=== PATIENT | male | born 1945 | race Caucasian/White ===

== ENCOUNTER 2016-12-13 14:56 | Emergency (ER) | payer MEDICARE ==
[~2016-12-13] VITALS: Ht 180.3 cm; Wt 78.2 kg
[~2016-12-13 14:56] MED LIST: ALBU8.5H2 INHALATION; BUPR100T8 PO; FLUO20CA25 PO; HYDR-3090 PO; IPRA3AMP NEB; LAMO100T2 PO; PANT40TA3 PO; PRED-508 PO; QUET200T PO; TRAZ-115 PO
[2016-12-13 15:30] VITALS: BP 143/79; PULSE 95; RESP 22; O2SAT 95
--- NOTE | 2016-12-13 18:33 | ED.REPORT ---
HPI-Hand Prob/Inj Date of Service Dec 13, 2016 ED Provider: Raymond Pineda PA-C Carloz is a 71-year-old male with a history of stage IV lung cancer and sarcoidosis who presents with chief complaint of a dog bite on his left hand. He states he was walking his own dog last night when they were approached by a strange dog that bit his hand. He reports being up-to-date on his tetanus shot as well as being given rabies vaccination 9 years ago for previous dog bite. Reports his left hand is painful at a level of 7/10, aggravated by flexing or extending his fingers. Nursing Notes Stated Complaint: L HAND DOG BITE Chief Complaint: General Complaint Nursing Notes Reviewed: Yes Allergies: Coded Allergies: No Known Drug Allergies (Verified Allergy, Unknown, 06/06/14) Scheduled Albuterol HFA (Proair HFA) 8.5 Gm Hfa.aer.ad 2 PUFFS INHALATION Q4H Amoxicillin/Clav K 875-125 mg (Amoxicillin/Clav K 875-125 mg) 875 Mg Tab 1 TABLET PO BID Bupropion ER (Bupropion ER) 100 Mg Tablet.er 100 MG PO DAILY Fluoxetine (Fluoxetine) 20 Mg Capsule 20 MG PO DAILY Ipratropium/Albuterol Sulfate (Iprat-Albut 0.5-3(2.5) mg/3 mL Inhalant Soln) 3 Ml Ampul.neb 3 ML NEB Q4H Lamotrigine (Lamotrigine) 100 Mg Tablet 150 MG PO DAILY Pantoprazole DR (Pantoprazole DR) 40 Mg Tablet.dr 40 MG PO DAILYAC Prednisone (Deltasone) 20 Mg Tablet 10 MG PO BID Prednisone taper: 40mg for 5 days 30mg for 5 days 20mg for 5 days 10mg for 5 days Quetiapine Fumarate (Seroquel) 200 Mg Tablet 200 MG PO HS Trazodone (Trazodone) 50 Mg Tablet 50 MG PO HS Scheduled PRN Hydrocodone-Acetaminophen 5-300 mg (Hydrocodone-Acetaminophen 5-300 mg) 1 Each Tablet 1 TABLET PO Q4H PRN PRN For Pain General Time Seen by Provider: 18:11 Chief Complaint Hand injury left Past Medical History Past Medical History Metastatic lung cancer COPD History of sarcoidosis Chronic glucocorticoid therapy Osteoporosis Dyslipidemia Family History noncontributory Smoking History Current Every Day Smoker Social History Other Social History: Good social support, Local resident Ambulatory Status Independent Physical Exam Initial Vital Signs Vital Signs (First) Date Time Temp Pulse Resp B/P Pulse Ox O2 Delivery O2 Flow Rate FiO2 12/13/16 15:30 35.9 95 22 143/79 95 12/13/16 19:51 Room Air Re-Eval/Medical Decision Med Decision/Clinical Course I discussed the case with Dr. juarez 71-year-old male currently on chemotherapy for stage IV lung cancer presents almost 24 hours have been bitten by an unknown dog on his left hand. These reports pain with flexion and extension of his fingers. He states that he Is up -to-date but is unsure of when he had it. He reports a course of rabies vaccination 9 years ago after a previous bite injury. We cleaned and examine the wound. There does not appear to be any damage to the tendon sheath, no indication of fracture. The patient has full strength with flexion and extension of the CP PIP and DIP joints. Sensation and circulation are intact distally. There is no indication of infection. Wound was divided minimally and dressed with antibiotic ointment. Provide initial dose of Augmentin and provided a prescription for 10 days. Instructed patient to contact the [facility] regarding further treatment for rabies. Patient understands the plan and is amenable. About return precautions. Discharge & Departure Primary Impression: Dog bite Disposition: Home Discharge Condition All VS Reviewed: Yes Condition: Stable Additional Instructions: Evaluation in emergency Department following a dog bite. History and physical is reassuring that there is unlikely damage to tendons or bones of your hand. It is too late to suture the wound on your hand. We cleaned and dressed it. I will give a prescription for antibiotics to be taken for the next 10 days. Be aware this medication is likely to give you diarrhea. Change the dressing daily wash with soap and water and then reapply antibiotic ointment and dressing. Be vigilant for signs of infection including increasing pain, redness , swelling or the appearance of pus. Please follow up with your primary care provider in the next few days to be sure this is progressing as expected. The pain is best treated with 400 mg of ibuprofen (Advil, Motrin) every 6 hours , or 1000 mg of acetaminophen (Tylenol) every 6 hours. These drugs can be taken at the same time for more severe pain. Please contact the [facility] at , to determine if you will require treatment for rabies. Return to emergency department for signs of infection including fever, increasing redness, swelling, pain, the appearance of pus. Referrals: Diane Aldana MD (PCP) EDSupervising Provider for APC: Eh Juarez DO copies to: Diane Aldana MD, Seth PA-C Dec 13, 2016 18:33
[2016-12-13] MEDS ORDERED: Ketorolac 30 mg/mL 2 mL Inj IM ONE (18:40)
[2016-12-13] MEDS ORDERED: AGM875T PO (19:16)
[2016-12-13] MEDS ORDERED: Amoxicillin-Clav 875-125 mg Tablet PO ONE (19:20)
[2016-12-13] MEDS ORDERED: TdaP Vaccine 0.5 mL Inj IM ONE (19:40)
[2016-12-13 19:51] VITALS: PULSE 89; RESP 16; O2SAT 92
[2017-04-10] MEDS ORDERED: OXYC-466 PO (17:22)
[2017-04-11] MEDS ORDERED: LORA0.5T PO (07:01)
[2017-04-11] MEDS ORDERED: APIX5TAB PO (07:01)
[2017-04-11] MEDS ORDERED: METO-272 PO (08:44)
== END 2016-12-13 19:53 | disposition home or self-care (01) ==
LOC: SED 14:56
DX: S61.452A Open bite of left hand, initial encounter (principal); W54.0XXA Bitten by dog, initial encounter; Y93.01 Activity, walking, marching and hiking; Y99.8 Other external cause status; F17.200 Nicotine dependence, unspecified, uncomplicated; J44.9 Chronic obstructive pulmonary disease, unspecified; C34.90 Malignant neoplasm of unspecified part of unspecified bronchus or lung; Z23 Encounter for immunization; Z87.09 Personal history of other diseases of the respiratory system; Z79.51 Long term (current) use of inhaled steroids; Z79.52 Long term (current) use of systemic steroids
CPT/HCPCS: 90471; 90715; 96372; 99284; J1885

== ENCOUNTER 2017-02-28 10:40 | Inpatient (IN) | payer MEDICARE ==
[2017-02-28] VITALS (11 sets, daily range): BP systolic 83–119; BP diastolic 56–75; PULSE 105–127; RESP 11–26; O2SAT 93–99
[~2017-02-28] VITALS: Ht 172.7 cm; Wt 83.4 kg
[~2017-02-28 10:40] MED LIST changes: -HYDR-3090 PO
--- NOTE | 2017-02-28 11:00 | ED.REPORT ---
HPI-Dyspnea / Wheezing Date of Service February 28, 2017 ED Provider: Elizabeth Lara MD 71-year-old man with metastatic melanoma seen in oncology clinic and sent to the emergency department with concerns for developing pneumonia in this gentleman with sarcoid chronic steroid dependence metastatic lesions to his lungs COPD who uses oxygen and BiPAP regularly at home. Complaining of increased difficulty breathing, left-sided low chest pain after some trauma to the lower ribs no abdominal pain does not describe fevers does describe chills. No upper left-sided chest pain or cardiac chest pain. Regular bowel movements no difficulties with urination. Nursing Notes Stated Complaint: POSSIBLE PNEUMONIA SENT BY Chief Complaint: Respiratory Complaints Nursing Notes Reviewed: Yes Allergies: Coded Allergies: No Known Drug Allergies (Verified Allergy, Unknown, 06/06/14) Scheduled Bupropion ER (Bupropion ER) 100 Mg Tablet.er 100 MG PO DAILY Fluoxetine (Fluoxetine) 20 Mg Capsule 20 MG PO DAILY Ipratropium/Albuterol Sulfate (Iprat-Albut 0.5-3(2.5) mg/3 mL Inhalant Soln) 3 Ml Ampul.neb 3 ML IH TID Lamotrigine (Lamotrigine) 100 Mg Tablet 100 MG PO DAILY Pantoprazole DR (Pantoprazole DR) 40 Mg Tablet.dr 40 MG PO DAILYAC Pravastatin (Pravastatin) 40 Mg Tablet 40 MG PO QAM Prednisone (PredniSONE) 5 Mg Tab 10 MG PO BID Quetiapine Fumarate (Seroquel) 200 Mg Tablet 200 MG PO HS Trazodone (Trazodone) 50 Mg Tablet 50 MG PO HS General Time Seen by MD: 11:00 Chief Complaint Shortness of breath, Other (chest pain) Hx Obtained From: Patient Arrived By: Walk-in Sudden in Onset?: No Onset Occurred: 4 days ago Severity: Current: Pain level 9 out of 10 Past Medical History Past Medical History Metastatic melanoma to the lung COPD History of sarcoidosis Chronic glucocorticoid therapy Osteoporosis Dyslipidemia Past Surgical History lung biospy, hemmorrhoid times 2 Family History noncontributory Smoking History Current Every Day Smoker (2 cig a day for 60 years) Social History etoh nightly Other Social History: Local resident Occupation lives by self, 1 story house friends will help him 02/27/2017 currently significant social issues with his children Ambulatory Status Independent Review of Systems Constitutional: Reports: Chills, Denies: Fever Respiratory: Reports: Shortness of breath Cardiovascular: Reports: Chest pain Complete sys rev & neg: except as marked. GI: Denies: Abdominal pain, Constipation, Diarrhea, Vomiting Male: Denies Dysuria, Denies Hematuria Physical Exam Initial Vital Signs Vital Signs (First) Date Time Temp Pulse Resp B/P Pulse Ox O2 Delivery O2 Flow Rate FiO2 02/28/17 10:47 36.2 127 24 116/75 93 Room Air 02/28/17 11:52 2 Initial VS: Reviewed Head / Eyes: Atraumatic, Normocephalic ENT: Mucous membranes moist (very yohan complexion), Conjunctiva normal Abdomen / GI: Non-tender, No guarding, No rebound (moderately distended obese belly good bowel tones. Nontender) Back: No CVA tenderness Lymphatic: No lymphadenopathy Extremities: Vascular intact (right hand with thenar and intraosseous muscle wasting presumed some type of previous ulnar nerve injury) Skin: Warm (flushed well perfused not diaphoretic) Neurologic: Alert, Oriented Psychiatric: Mood/affect normal, Behavior normal Some rhonchi in the left base very tender over manipulation along the axillary line left-sided ribs 10 and 11, 12 with 2 small areas of well-healed bruising in the same area of concern. Tachycardic, regular. No significant murmurs. No jugular venous distention No lower extremity edema good capillary refill but no palpable distal pulses. Interpretation & Diagnostics Lab Results Interpretation Result Diagram: 02/28/17 1120 02/28/17 1120 Test 02/28/17 11:20 White Blood Count 8.9th/mm3 (3.8-10.1) Red Blood Count 3.51mil/mm3 (4.40-5.80) Hemoglobin 11.4g/dL (13.8-17.2) Hematocrit 37.0% (41.0-50.0) Mean Corpuscular Volume 105.4fL (81-100) Mean Corpuscular Hemoglobin 32.5pg (27.0-35.0) Mean Corpuscular Hemoglobin Concent 30.8% (32.0-37.0) Red Cell Distribution Width 15.6% (12.3-15.4) Platelet Count 302bil/L (150-400) Neutrophils (%) (Auto) 83.9% (40-74) Lymphocytes (%) (Auto) 3.6% (14-46) Monocytes (%) (Auto) 9.1% (4-12) Eosinophils (%) (Auto) 0.2% (0-5) Basophils (%) (Auto) 0.7% (0-3) Activated Partial Thromboplast Time 24.4sec (22.8-33.0) Sodium Level 141mEq/L (134-144) Potassium Level 3.9mEq/L (3.5-5.2) Chloride Level 99mEq/L (97-108) Carbon Dioxide Level 30mmol/L (18-29) Blood Urea Nitrogen 13mg/dL (8-27) Creatinine 0.70mg/dL (0.76-1.27) Estimat Glomerular Filtration Rate 117mL/min (>59) Glucose Level 124mg/dL (60-99) Lactic Acid Level 1.6mmol/L (0.4-2.0) Calcium Level 9.3mg/dL (8.5-10.1) Total Bilirubin 0.5mg/dL (0.0-1.2) Aspartate Amino Transf (AST/SGOT) 29U/L (0-50) Alanine Aminotransferase (ALT/SGPT) 34U/L (0-44) Alkaline Phosphatase 113U/L (25-160) Pro-B-Type Natriuretic Peptide 1271pg/mL (0-376) Total Protein 5.7g/dL (6.4-8.4) Albumin 3.7g/dL (3.4-5.0) Procalcitonin 0.10ng/mL (0.00-0.08) Lab Results Interpretation: EK:39 Rate 129 Atrial flutter. NEW compared to all prior EKGs. RBBB, present on prior studies. ST depression mykel/laterally - likley rate related but a chagne from prior EKGs. CT chest, angio: IMPRESSION: 1. No pulmonary emboli. 2. Small to moderate-sized left-sided pleural effusion has increased in the interim. Consolidation at the left lung base may be related to scarring or atelectasis. However, please correlate clinically to exclude the possibility of pneumonia. Dictated by: Rod Sheriff M.D. on 02/28/2017 at 11:22 No indication of rib fractures at site of tenderness Re-Eval/Medical Decision Med Decision/Clinical Course Care assumed from Roseline Arce by Dr Lara.71-year-old chronically ill gentleman with metastatic melanoma now with left-sided lower chest pain/rib pain. No evidence of rib fractures on CT scan however pleural effusion in that area and likely developing pneumonia could certainly explain the pain he is experiencing. Pulmonary embolus is ruled out. Atrial flutter with rapid ventricular response, elevated troponin. ST depression anterior laterally in the setting of right bundle branch block. Likely rate related troponin leak however non-STEMI is not ruled out at this time. In the emergency room he will be treated for presumed community-acquired pneumonia, exacerbation of his COPD, likely increase oxygen demands have caused his atrial flutter which is now causing rate related troponin leak and all are contributing to the lower left chest pain he is experiencing. He does want to be DO NOT RESUSCITATE and would like treatment up to that. He is given IV Cardizem for rate control started on a Cardizem drip. Second line is started. No evidence of acute sepsis at time of admission to the hospital. Source of Hx: Old records Re-Evaluation/Progress : Time of Eval: 15:26 Re-Evaluation/Progress Note: Pt has been admitted but is currently in the ER. On 15mg Dilt gtt, HR is down to 110, BP also down to 80's systolic. Will give fluid bolus, drop dilt rate to 10mg and IV digoxin for rate control with less hypotensive effects Consultation : Referral / Consult Name: Tristan Spangler MD Consulted With: Hospitalist Call Returned at: 13:34 Electrical Lineworker: Will see patient, Agrees with eval, Agrees with plan, Accepts admit Counseled Regarding: Diagnosis, Lab results, Need for admission Discharge & Departure Impression: Primary Impression: Atrial flutter with rapid ventricular response Additional Impressions: Elevated troponin Left lower lobe pneumonia Pleural effusion on left Metastatic melanoma Acute exacerbation of chronic obstructive pulmonary disease (COPD) Disposition: ADMITTED TO HOSPITAL Discharge Condition All VS Reviewed: Yes Condition: Stable Referrals: Diane Aldana MD (PCP) Crit Care Except Billable Proc Time Spent: 30-74 minutes Services Performed: Patient management by me, Time spent at bedside, Reviewing test results, Reviewing imaging, Discussing patient care, Documentation in record, Time with fam/surrogate Scribe Attestation Portions of this note were transcribed by Marium Lara. I, Dr. Lara personally performed the history, physical exam and medical decision-making; I reviewed and confirmed the accuracy of the information in the transcribed note. Signed by: Radha Renteria,02/28/2017 at 1345. copies to: Nilton Arroyo MD; Diane Aldana MD, Sue ARNP February 28, 2017 11:00 Elizabeth Lara MD February 28, 2017 12:57 Marium Lara February 28, 2017 13:35
[2017-02-28] MEDS ORDERED: HYDROmorphone 1 mg/mL Inj IVPUSH ONE (11:10)
[2017-02-28] MEDS ORDERED: 0.9% Sodium Chloride 1,000 ML IV ONE ×2 (11:10→15:30)
[2017-02-28] MEDS ORDERED: Albuterol-Ipratropium 3 mL Inhalation Solution NEB ONE (11:20)
[2017-02-28 11:37] LABS: EOSINOPHILS % (AUTO) 0.2 % (0-5); Mean Corpuscular Hemoglobin 32.5 pg (27.0-35.0); Mean Corpuscular Volume 105.4 fL (81-100)
[2017-02-28 11:42] LABS: BASOPHILS % (AUTO) 0.7 % (0-3); MONOCYTES % (AUTO) 9.1 % (4-12); NEUTROPHILS % (AUTO) 83.9 % (40-74); Platelet Count 302 bil/L (150-400)
[2017-02-28 11:55] LABS: TROPONIN T 0.029 ug/L (0.0-0.011)
[2017-02-28] MEDS ORDERED: Diltiazem 5 mg/mL 5 mL Inj IVPUSH ONE ×2 (12:05→12:45)
--- NOTE | 2017-02-28 12:31 | DRSVH ---
PROCEDURE: CT ANGIO CHEST PULMONARY EMBOLISM ([id number]) INDICATIONS: sob weak TECHNIQUE: After the administration of intravenous contrast, 2 mm thick sections acquired from the pulmonary api boyd to the posterior costophrenic angles. 3-dimensional maximum intensity projection (MIP) coronal a nd sagittal reformats were then acquired through the thorax. For radiation dose reduction, the follo wing was used: automated exposure control, adjustment of mA and/or kV according to patient size. COMPARISON: [facility], CT, CT CHEST ABD PELVIS W CON, 01/10/2017, 11:02. FINDINGS: Image quality: Excellent. Pulmonary arteries: Pulmonary arteries are normal in size, and demonstrate no intraluminal filling d efects to suggest central pulmonary embolism. Lungs and pleura: There is a small to moderate-sized left-sided pleural effusion with left basilar co nsolidation demonstrating decreased enhancement. Patchy geographically distributed areas of groundgl ass attenuation are evident throughout the lungs, which may be related to suboptimal inspiration. Mi ld scarring within the lung bases may be present. Mediastinum: Heart size is normal, without pericardial effusion. Coronary and aortic atherosclerosi s is present. No mediastinal or hilar adenopathy. Thoracic aorta is normal in caliber and enhancemen t. Esophagus is normal in caliber, without hiatal hernia. Bones and chest wall: No suspicious bony lesions. Ribs and thoracic spine appear intact throughout. Multiple healing/healed bilateral rib fractures are evident. There is a prominent compression defo rmity involving the T5 vertebral body, unchanged. An old fracture of the right glenoid and probably the humerus is noted with residual deformity. No acute injuries are evident. Thyroid gland is not e nlarged. No axillary or supraclavicular adenopathy. Abdomen: Visualized upper abdominal solid organs appear normal in the early arterial phase of enhanc ement. IMPRESSION: 1. No pulmonary emboli. 2. Small to moderate-sized left-sided pleural effusion has increased in the interim. Consolidation at the left lung base may be related to scarring or atelectasis. However, please correlate clinicall y to exclude the possibility of pneumonia. Dictated by: Rod Sheriff M.D. on 02/28/2017 at 11:22 Approved by: Rod Sheriff M.D. on 02/28/2017 at 11:30
[2017-02-28] MEDS ORDERED: cefTRIAXone Inj 2,000 MG in Dextrose 5% Minibag Plus 50 ML IV ONE (12:45)
[2017-02-28] MEDS: Diltiazem Inj 125 MG in Dextrose 5% 100 ML IV SCH ×3 (13:13→14:07)
[2017-02-28] MEDS ORDERED: IPRA3AMP IH (13:57)
[2017-02-28] MEDS ORDERED: PRD5T PO (14:01)
[2017-02-28] MEDS ORDERED: PRAV40TA PO (14:02)
[2017-02-28] MEDS ORDERED: Ondansetron 2 mg/mL 2 mL Inj IVPUSH PRN (14:50)
[2017-02-28] MEDS ORDERED: Alum-Mag Hydrox-Simeth 30 mL Suspension PO PRN (14:50)
[2017-02-28] MEDS ORDERED: Polyethylene Glycol (PEG) 17 Gm Powder PO PRN (14:50)
--- NOTE | 2017-02-28 15:00 | NUR ---
Arrival to 2020 Pt arrived to floor with his HR at 120s, pt was placed on monitor and 2LNC. Pt is alert and orient, pt is very weak, c/o of back pain. Pt placed on heparin gtt, amiodarone gtt, NS @100
[2017-02-28] MEDS ORDERED: Amiodarone 150 mg/100 mL D5W 150 MG in IV Premix 1 EACH IV ONE (15:10)
[2017-02-28] MEDS ORDERED: Heparin 5,000 Unit/mL Inj IVPUSH PRN (15:10)
[2017-02-28] MEDS ORDERED: Heparin 5,000 Unit/mL Inj IVPUSH ONE (15:10)
[2017-02-28] MEDS ORDERED: Digoxin 0.25 mg/mL 2 mL Inj IV ONE (15:30)
[2017-02-28] MEDS ORDERED: Heparin 5,000 Unit/mL Inj SUBQ SCH (16:30)
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
[2017-02-28] MEDS ORDERED: IV Premix 1 EACH IV ONE ×2 (16:55→23:49)
[2017-02-28] MEDS ORDERED: Amiodarone 360 mg/200 mL D5W Premix IV ONE ×2 (16:55→23:49)
[2017-02-28] MEDS: Amiodarone 360 mg/200 mL D5W 360 MG, Filter, Taxol 14256-28 1 EACH in IV Premix 1 EACH IV SCH ×2 (17:31→23:58)
[2017-02-28] MEDS: Heparin 25K Unit/500mL 0.45 NS 25,000 UNIT in IV Premix 1 EACH IV SCH (17:33)
[2017-02-28] MEDS: HYDROcodone-APAP 5-325 mg Tablet PO PRN (20:17)
[2017-02-28] MEDS: predniSONE 5 mg Tablet PO SCH (21:56)
[2017-02-28] MEDS: Ipratropium 0.02% 0.5 mg/2.5 mL Inhalation Solution NEB SCH (22:11)
[2017-03-01] VITALS (11 sets, daily range): BP systolic 95–127; BP diastolic 55–84; PULSE 98–118; RESP 12–23; O2SAT 92–99
[2017-03-01] MEDS: HYDROcodone-APAP 5-325 mg Tablet PO PRN ×3 (03:15→19:40)
--- NOTE | 2017-03-01 06:06 | NUR ---
Pain/HR Pt with intermittent kidney pain at 8-9/10, exacerbated with any kind of movement, Vicodin given x2, effective, pt able to sleep on and off. Pt on Amiodarone gtt, HR mostly sustained in 110's.
[2017-03-01 08:19] LABS: BASOPHILS % (AUTO) 2.2 % (0-3); EOSINOPHILS % (AUTO) 0.6 % (0-5); MONOCYTES % (AUTO) 11.4 % (4-12); Mean Corpuscular Hemoglobin 32.8 pg (27.0-35.0); Mean Corpuscular Volume 108.8 fL (81-100); Platelet Count 290 bil/L (150-400)
[2017-03-01] MEDS: Ipratropium 0.02% 0.5 mg/2.5 mL Inhalation Solution NEB SCH ×3 (08:30→20:30)
[2017-03-01] MEDS ORDERED: Amiodarone 360 mg/200 mL D5W Premix IV ONE (09:17)
[2017-03-01] MEDS ORDERED: IV Premix 1 EACH IV ONE (09:17)
[2017-03-01] MEDS: Pantoprazole 40 mg ER24 Tablet PO SCH (09:31)
[2017-03-01] MEDS: Albuterol-Ipratropium 3 mL Inhalation Solution NEB SCH ×3 (09:36→20:42)
[2017-03-01] MEDS: predniSONE 5 mg Tablet PO SCH ×2 (09:40→21:07)
[2017-03-01] MEDS: buPROPion SR 100 mg ER12 Tablet PO SCH (10:51)
[2017-03-01] MEDS: lamoTRIgine 100 mg Tablet PO SCH (10:51)
--- NOTE | 2017-03-01 15:23 | ABG ---
DateTimeAnalyzed 15:16:36 -_ pH ____7.335 - pCO2 ___59.7__ -mmHg pO2 ___82.5__ -mmHg HCO3- ___31.8__ -mmol/L ABE ____5.3__ -mmol/L tHb ___11.2__ -g/dL O2Hb ___95.5__ -% COHb ____2.1__ -% MetHb ____0.0__ -% sO2 ___97.5__ -% FIO2 ___28.0__ -% Drawn By KBB - Date/Time Notified____ 15:23:00 -_ Oxygen Device 1 __CANNULA - Notified By kbb - Notified Whom Yanchuk, Victororiya DO - Age 64 -years B 759 -mmHg K+ ____4.4__ -mmol/L tO2 ___15.1__ -Vol% Tristan test _Positive -
--- NOTE | 2017-03-01 16:03 | NUR ---
Social Work Note: Attempted Initial Assessment Data& Assessment: EMR reviewed. SW received order from MD regarding concerns about statements pt had made to MD about his relationship with his son and safety at home. SW attempted to meet with pt at bedside to complete initial assessment and address these concerns. Pt was very sleepy and was not able to engage in meaningful conversation. Pt requested SW to follow up at a later time. Pt continued to rest. SW to attempt initial assessment tomorrow, 03/01/2017. Carloz Mckeon is a 71 year old male admitted on 02/28/2017 for A FLutter with RVRR and elevated troponin. Pt has Medicare and AARP insurance coverage. Pt sees Diane Aldana MD for primary care. Pt lives in [place]. Pt has not ambulated outside of bed during this hospital admission so far. SW to follow up with pt regarding baseline mobility and needs. Plan: SW to attempt initial assessment again tomorrow, 03/01/2017.SW to follow up with pt regarding baseline mobility and needs. JACI Sheffield
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
[2017-03-01] MEDS: Heparin 25K Unit/500mL 0.45 NS 25,000 UNIT in IV Premix 1 EACH IV SCH (19:21)
--- NOTE | 2017-03-01 19:37 | NUR ---
Oxygenation / Pain: SpO2: mid 90's at rest on 2L NC. Reports SOB and desaturates to low 80's with exertion. Reported 10/10 abdominal pain that radiated to his mid back. Vicodin X2 tabs given and patient reported 10/10 pain with movement at reassessment, but states that is is tolerable at rest.
--- NOTE | 2017-03-01 20:31 | CONS ---
[address] [address] CONSULTATION REPORT PATIENT: SONAM HIRSCH : 1945 MR#: [id number] ADMIT: 02/28/2017 JOB ID: [id number] CARDIOLOGY CONSULTATION: DATE OF SERVICE: 03/01/2017 CHIEF COMPLAINT: Shortness of breath. HISTORY OF PRESENT ILLNESS: The patient is a very complex and unfortunate, 71-year-old man with history of lifelong sarcoid; on corticosteroids, and melanoma treated with radiation therapy with metastatic disease. Cardiology is consulted specifically to assist with management of atrial flutter. In hindsight, he has been short of breath for two weeks prior to admission. He is not aware of palpitations. He has been coughing and the cough was productive of white sputum, and Cardiology is consulted to assist with management of atrial flutter. PAST MEDICAL HISTORY: 1. Metastatic melanoma with lesions in his right renal hilum, neck and left lower lobe of the lung. 2. COPD, on 1.5 L nasal cannula at home. 3. Sarcoidosis, on chronic corticosteroid therapy. 4. Hyperlipidemia. 5. Osteoporosis. 6. He has chronic L1 and T12 compression fractures noted on CT scan from January 10, 2017. He also has noted healed bilateral rib fractures and history of dislocated shoulder with presumed intra-articular loose bodies. FAMILY HISTORY: Father with esophageal cancer and a sister with breast cancer. SOCIAL HISTORY: He unfortunately is still smoking. He smokes two cigarettes a day. REVIEW OF SYSTEMS: Significant for shortness of breath and pain in his back that wraps around the front and exacerbated by movement. He also reports abdominal tenderness to palpation on the left side, but no constipation and no nausea. Otherwise, 10 point review of systems is negative. ALLERGIES: No known drug allergies. CURRENT MEDICATIONS: In the hospital: 1. Heparin drip per ACS protocol. 2. Amiodarone drip. 3. Prednisone 10 mg twice a day. 4. Wellbutrin 100 mg daily. 5. Lamictal 100 mg daily. 6. Lipitor 10 mg daily. 7. Prozac 20 mg daily. 8. Protonix 40 mg daily. 9. Seroquel 200 mg every evening. 10. Nicotine patch. 11. Oral bowel regimen. PHYSICAL EXAMINATION: Temperature 36.8, blood pressure 99/56 up to 127/75, pulse 98, up to 118 beats per minute. He is satting 92% to 99% on 2-6 L nasal cannula. Obese man with cushingoid facies. Tongue shows very dry mucosa. Mallampati score is 2. Heart: Normal S1, S2. No murmurs. Lungs: Clear to auscultation anteriorly. Abdomen is hard, tympanitic and distended with rare but present bowel sounds. Extremities show no edema. LABORATORY DATA: Reviewed. Hematocrit is 37, MCV is 109 . Platelet count is normal with a left shift. Creatinine 0.5. Potassium 4.8. AST 63, ALT 51. Troponin T minimally elevated on admission 0.012. There is no recent TSH or free T4 available for review. DIAGNOSTIC DATA: EKG shows flutter with rapid ventricular response. Cycle length is 240 msec. There is no recent echocardiogram available for review. Last available echocardiogram was performed in 2008. I personally reviewed the study and it is reassuring. At that time he had no significant valvular abnormalities and he had preserved LV systolic function. Most recent CT scan was performed February 28, 2017. It demonstrated small left-sided pleural effusion, heavy calcification of his coronary vasculature; in particular distal left main, proximal LAD and proximal circumflex. On personal review, this patient had significant lymphadenopathy around the area of his esophagus. On personal review of the CT scan performed February 28, there is a 2.5 x 1.6 cm nodule right next to right pulmonary artery. The radiologist did not comment on it, but I can see it when I look at it and I will request clarification in addendum to the effect. It could easily be related to his underlying sarcoidosis. ASSESSMENT AND PLAN: In summary, this is a very complex situation. This is a 71-year-old man with symptomatic atrial flutter and poor prognosis due to his metastatic malignant melanoma. Under normal circumstances, would recommend anticoagulation, transesophageal echocardiogram, and cardioversion. So far, he seems to be tolerating heparin drip okay. In his case of course there are multiple challenges to performing these procedures. First of all, he has hoarseness and he says that this is not normal for him. He attributes hoarseness to feeling "dried out", but I am not sure whether he has some vocal cord issue and I think he is also at risk for significant esophagitis given that he is on chronic corticosteroids and he drinks significant amount of alcohol. We discussed risks, benefits and alternatives. The patient is interested in proceeding. We will do a transesophageal echocardiogram, cardioversion tomorrow and depending on how things go there is a good chance I will enlist Anesthesia support for this procedure. While his Mallampati score is good and I can easily visualize his uvula, I would just appreciate an extra set of hands when caring for this complex patient. If I encounter any resistance on passing the probe, the procedure will be aborted. The patient denies that he has dysphagia but he does report abdominal distention and I certainly do not plan on doing any transgastric views. He does not display signs or symptoms of obstruction. I also plan to obtain thyroid function testing to see if there is any triggers for his atrial flutter and also plan to obtain transthoracic echocardiogram prior to embarking on transesophageal echocardiogram. In the interim, I recommend continuing heparin drip and amiodarone drip. Thank you very much for the opportunity to participate in his care.
[2017-03-02] VITALS (13 sets, daily range): BP systolic 128–150; BP diastolic 77–93; PULSE 107–120; RESP 11–30; O2SAT 94–99
[2017-03-02] MEDS ORDERED: IV Premix 1 EACH IV ONE ×2 (00:23→13:06)
[2017-03-02] MEDS ORDERED: Amiodarone 360 mg/200 mL D5W Premix IV ONE ×2 (00:23→13:06)
[2017-03-02] MEDS: Amiodarone 360 mg/200 mL D5W 360 MG, Filter, Taxol 14256-28 1 EACH in IV Premix 1 EACH IV SCH ×2 (00:31→13:11)
[2017-03-02 03:59] LABS: BASOPHILS % (AUTO) 0.3 % (0-3); EOSINOPHILS % (AUTO) 0.3 % (0-5); MONOCYTES % (AUTO) 7.1 % (4-12); Mean Corpuscular Hemoglobin 33.1 pg (27.0-35.0); Mean Corpuscular Volume 109.2 fL (81-100); NEUTROPHILS % (AUTO) 83.5 % (40-74); Platelet Count 265 bil/L (150-400)
--- NOTE | 2017-03-02 06:31 | NUR ---
HR pt's HR in the 110's all night, amiodarone gtt and Heparin gtt infusing. Pt's pain atr baseline, Vicodin anfd Morphine IV given x1 each, moderately effective.
[2017-03-02] MEDS: Ipratropium 0.02% 0.5 mg/2.5 mL Inhalation Solution NEB SCH ×3 (07:20→20:30)
[2017-03-02] MEDS: Albuterol-Ipratropium 3 mL Inhalation Solution NEB SCH ×3 (07:22→20:53)
[2017-03-02] MEDS: Pantoprazole 40 mg ER24 Tablet PO SCH (07:34)
[2017-03-02] MEDS: predniSONE 5 mg Tablet PO SCH ×2 (07:34→20:40)
[2017-03-02] MEDS: HYDROcodone-APAP 5-325 mg Tablet PO PRN ×3 (07:34→20:41)
[2017-03-02] MEDS: buPROPion SR 100 mg ER12 Tablet PO SCH (07:46)
[2017-03-02] MEDS: lamoTRIgine 100 mg Tablet PO SCH (07:46)
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
--- NOTE | 2017-03-02 13:14 | NUR ---
[facility] signed
--- NOTE | 2017-03-02 17:19 | NUR ---
IV/Skin Pt IV was observed to be leaking. As RN removed and taped up IV site, pt began to have coughing attack and dislodged bandage. Pt is on Heparin drip. Pt was told to hold pressure while this RN retrieved extra gauze. IV site was dressed with 4x4 gauze and a bulky dressing to stop bleeding. It was also noted that pt was bleeding at his wrist. Upon examination it appeared that he had a skin tear under the hub of his other IV. The hub was being held in place with plastic tape which when removed made skin tear worse. A dressing of gauze and paper tape was applied under IV hub.
[2017-03-02] MEDS: Heparin 25K Unit/500mL 0.45 NS 25,000 UNIT in IV Premix 1 EACH IV SCH (22:03)
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
[2017-03-03] VITALS (11 sets, daily range): BP systolic 96–160; BP diastolic 67–96; PULSE 76–119; RESP 12–24; O2SAT 92–97
[2017-03-03] MEDS: HYDROcodone-APAP 5-325 mg Tablet PO PRN ×4 (01:26→20:17)
[2017-03-03] MEDS: Ipratropium 0.02% 0.5 mg/2.5 mL Inhalation Solution NEB SCH ×4 (02:30→20:30)
[2017-03-03] MEDS ORDERED: IV Premix 1 EACH IV ONE (02:39)
[2017-03-03] MEDS ORDERED: Amiodarone 360 mg/200 mL D5W Premix IV ONE (02:39)
[2017-03-03 03:32] LABS: Mean Corpuscular Hemoglobin 32.9 pg (27.0-35.0); Mean Corpuscular Volume 107.6 fL (81-100); Platelet Count 289 bil/L (150-400)
[2017-03-03 04:00] LABS: Magnesium 2.1 mg/dL (1.6-2.6); Phosphorus 3.4 mg/dL (2.5-4.9)
[2017-03-03 04:13] LABS: BASOPHILS % (AUTO) 0 % (0-3); EOSINOPHILS % (AUTO) 0 % (0-5); MONOCYTES % (AUTO) 9 % (4-12); NEUTROPHILS % (AUTO) 88 % (40-74)
[2017-03-03 06:18] LABS: APPEARANCE,URINE CLEAR (CLEAR,HAZY); COLOR,URINE YELLOW (YELLOW); OCCULT BLOOD,URINE NEGATIVE (NEGATIVE); UROBILINOGEN,URINE NORMAL (NORMAL)
--- NOTE | 2017-03-03 06:45 | NUR ---
NOC PT remains on amio. gtt and HR has been around 110ish. HR irregular. B/P sustained without issue. Hep gtt also infusing and rate was decreased this am at 0415 to 950u/h. Next PTT at 1015. Pt increased to 2l NC over noc due to his sleep apnea as sats were only in hi 80's on 1.5l. PT is SOB with minimal exertion and flushed. His large abdomen makes it difficult for him to get in and OOB. Lungs are tight t/o with exp wheezes heard. Nebs given when pt agreeable. Pt voids per urinal, pale colored urine. UA sent that was negative as this was not done for admit. Pain managed with 2 norco. PT NPO for possible cardioversion. Will CTM.
[2017-03-03] MEDS: Albuterol-Ipratropium 3 mL Inhalation Solution NEB SCH ×3 (08:01→21:34)
[2017-03-03] MEDS: predniSONE 5 mg Tablet PO SCH ×2 (08:48→20:17)
[2017-03-03] MEDS: lamoTRIgine 100 mg Tablet PO SCH (08:48)
[2017-03-03] MEDS: Pantoprazole 40 mg ER24 Tablet PO SCH (08:48)
[2017-03-03] MEDS: buPROPion SR 100 mg ER12 Tablet PO SCH (08:48)
[2017-03-03] MEDS ORDERED: guaiFENesin 600 mg ER12 Tablet PO ONE (14:30)
--- NOTE | 2017-03-03 14:45 | NUR ---
pain/Respiratory. pt report moderate to severe pain of back. PRN hydrocodone given per md order with effective results. pt stating coughing increases back pain quite a bit. pt noted to desat some in to mid 80s when sleeping. Oxymask placed on patient while asleep and saturation improved. Pt with significant coughing when up to edge of bed. pt reporting sputum very thick "like gum." MD informed and med orders received and started. RT in to see patient for respiratory treatment. will continue to monitor.
--- NOTE | 2017-03-03 15:58 | DRSVH ---
[facility] [address] [place] [address] Echocardiogram Report Name: SONAM HIRSCH WStudy Date: 03/03/2017 Height: 67 in Hospital Exam Location: [facility] Weight: 181 lb Gender: Male BSA: 1.9 m2 : 1945 Age: 71 yrs BP: 132/88 mmHg Reason For Study: A-FLUTTER Ordering Physician: Willie Segundo Performed By: Stefanie Gregg Referring Physician: Dr. Diane Aldana Interpretation Summary Left ventricular wall thickness is mildly increased. The ejection fraction is estimated to be 35-40%. Barring the apical segments, melissa entire LV is moderately hypokinetic. LVEF has decreased significantly since 2008 There is no significant valvular heart disease. Procedure: A two-dimensional transthoracic echocardiogram with color flow and Doppler was performed. The study quality was technically adequate. Comparison is made with the echocardiogram of 04-05-2009. Left Ventricle: The left ventricle is normal in size. Left ventricular wall thickness is mildly increased. The ejection fraction is estimated to be 35- 40%. Barring the apical segments, melissa entire LV is moderately hypokinetic. Right Ventricle: The right ventricle is mild to moderately dilated. Right ventricular systolic function is mildly reduced. Atria: The left atrium is moderately dilated. The right atrium is severely dilated. There is no Doppler evidence for an atrial septal defect. Mitral Valve: The mitral valve leaflets appear normal. There is no evidence of stenosis, fluttering, or prolapse. There is trace mitral regurgitation. Aortic Valve: The aortic valve is trileaflet. The aortic valve opens well. No aortic regurgitation is present. Tricuspid Valve: The tricuspid valve leaflets are thin and pliable. There is trace tricuspid regurgitation. Right ventricular systolic pressure is estimated to be 26 mmHg plus the clinically estimated CVP which cannot be estimated on this exam. Pulmonic Valve: The pulmonic valve is not well seen, but is grossly normal. There is a trace or physiologic amount of pulmonic regurgitation. Great Vessels: The aortic root is mildly dilated. The ascending aorta is mildly enlarged. The aortic arch is moderately enlarged. The pulmonary artery is not well visualized, but is probably normal size. The IVC is dilated, but has some respiratory collapse suggesting high central venous pressure. Pericardium/ Pleura There is no pericardial effusion. There is no pleural effusion. MMode/2D Measurements & Calculations LVIDd: 4.5 cm LA dimension: 4.4 cm RA long axis LVOT diam: 2.5 cm LVIDs: 4.0 cm AoV Openin.3 cm FS: 10.4 % LA A2 area: 27.7 cm RA area Aortic Jxn: 3.0 cm EPSS: 0.70 cm LA A4 area: 23.4 cm asc Aorta Diam IVSd: 1.3 cm LA length (vol) : 27.0 cm LVPWd: 1.0 cm RA vol Ao Arch Diam (Prox LA vol: 91.0 ml : 101.ml Trans): 4.1 cm LA vol index RA Ao Arch Diam : 52.5 mm2 (distal): 3.7 cm IVC diam: 2.3 cm LV cox. diameter/BSA LV sys. diameter/BSA RVD2 (mid) (cm/m^2): 2.3 (cm/m^2): 2.1 : 4.3 cm Doppler Measurements & Calculations Ao V2 max MV E max mati Med Peak E' Mati TR max mati : 93.6 cm/sec : 72.0 cm/sec : 252.7 cm/sec Ao max PG E/E' med: 10.1 TR max P.6 mmHg : 3.5 mmHg Lat Peak E' Mati PA V2 max: 70.9 cm/sec Ao mean PG PA mean P.86 mmHg E/E' lat: 5.7 PA Accel Time LVOT Max Mati E/e' average: 7.9 : 0.05 sec : 65.0 cm/sec NATALIO(I,D): 3.2 cm sev ratio Ao V2 mean LV V1 max PG PA V2 mean NATALIO indexed to BSA : 71.7 cm/sec : 42.8 cm/sec (cm^2/m^2): 1.6 Ao V2 VTI LV V1 VTI : 10.5 cm NATALIO(V,D): 3.3 cm2 Electronically signed by: Alberto Faria on Reading Physician:03/03/2017 03:57 PM
--- NOTE | 2017-03-03 16:26 | PCM.PNCARD ---
Subjective Date of service March 03, 2017 Chief Complaint SOB History of Present Illness This patient presented to [facility] with atrial flutter with RVR. He was given Dilt IV w/o much succ Exam Vital Signs Vital Sign - Last Date Time Temp Pulse Resp B/P Pulse Ox O2 Delivery O2 Flow Rate FiO2 03/03/17 14:48 114 16 94 Nasal Cannula 1.50 03/03/17 13:57 36.7 134/96 Intake and Output 03/02/17 03/02/17 03/03/17 Cumulative From/Thru 15:00 23:00 07:00 02/28/17 10:47 - 03/03/17 06:50 Intake Total 1120 ml 542 ml 6215 ml Output Total 825 ml 1300 ml 3400 ml Balance 295 ml -758 ml 2815 ml Intake Oral 510 ml 100 ml 2345 ml IV Total 610 ml 442 ml 3870 ml Output Urine Total 825 ml 1300 ml 3400 ml # Voids 2 7 General: Pleasant Cooperative Skin: Warm & dry to touch Head: Normocephalic Neck: Nuchal obesity:JVP assess difficult Cardiac: Regularly irregular rhythm Abdomen: Abdomen soft Neurological: Alert & oriented Lab and Diagnostics Labs CBC Test 03/03/17 03:15 White Blood Count 6.2th/mm3 (3.8-10.1) Red Blood Count 3.28mil/mm3 (4.40-5.80) Hemoglobin 10.8g/dL (13.8-17.2) Hematocrit 35.3% (41.0-50.0) Mean Corpuscular Volume 107.6fL (81-100) Mean Corpuscular Hemoglobin 32.9pg (27.0-35.0) Mean Corpuscular Hemoglobin Concent 30.6% (32.0-37.0) Red Cell Distribution Width 15.4% (12.3-15.4) Platelet Count 289bil/L (150-400) Neutrophils (%) (Auto) 88% (40-74) Lymphocytes (%) (Auto) 3% (14-46) Monocytes (%) (Auto) 9% (4-12) Eosinophils (%) (Auto) 0% (0-5) Basophils (%) (Auto) 0% (0-3) CMP Test 02/28/17 11:20 03/01/17 00:42 03/02/17 03:44 03/03/17 03:15 Lactic Acid Level 1.6mmol/L Pro-B-Type Natriuretic Peptide 1271pg/mL Procalcitonin 0.10ng/mL Troponin T 0.010ug/L Thyroid Stimulating Hormone (TSH) 0.579uIU/mL Free Thyroxine 0.87ng/dL Sodium Level 143mEq/L Potassium Level 4.4mEq/L Chloride Level 102mEq/L Carbon Dioxide Level 30mmol/L Blood Urea Nitrogen 11mg/dL Creatinine 0.54mg/dL Estimat Glomerular Filtration Rate 159mL/min Glucose Level 151mg/dL Calcium Level 9.2mg/dL Phosphorus Level 3.4mg/dL Magnesium Level 2.1mg/dL Total Bilirubin 0.4mg/dL Aspartate Amino Transf (AST/SGOT) 37U/L Alanine Aminotransferase (ALT/SGPT) 42U/L Alkaline Phosphatase 113U/L Total Protein 5.9g/dL Albumin 3.6g/dL Result Diagram: 03/03/175 03/03/17314 Assessment & Plan Problems: (1) Acute congestive heart failure with left ventricular diastolic dysfunction Plan: Most likely secondary to atrial flutter with RVR. He has responded very nicely with metoprolol tartrate. His amiodarone has been stopped and we will continue with beta blockers for now. We will continue to optimize his HF meds over the next 2 days. I will like to start him on Lisinopril 10 mg once a day as well. Probably tomorrow am, we will switch him to Toprol XL 25-50 mg BID. I believe that once he continues to have good rate control then we will see an improvement of his EF and hopefully his SOB will improve as well. If he continues to have good rate control w/o amiodarone on board over the next 2 days then I would not recommend that he is discharged on amiodarone orally. He is not a candidate for coronary intervention due to his metastatic melanoma and other comorbidities. One may consider a NOAC if he does not have any bleeding complications from IV heparin, e.g. Eliquis 5 mg twice a day to prevent cardioembolic strokes 2/2 atrial flutter. If his SOB does not improve as an outpatient even in the presence of good rate control then one may consider electrical cardioversion but in order to complete a cardioversion, he will need to be on an anticoagulant (warfarin or NOAC). Status: Acute ICD Code: I50.31 (2) Atrial flutter with rapid ventricular response Plan: Improving with metoprolol on board. Will hold amiodarone for now and restart if necessary. Status: Acute ICD Code: I48.92 (3) Metastatic melanoma Status: Acute ICD Code: C79.9 Pain Evaluation: Adequate Pain Control GI Prophylaxis: Proton Pump Inhibitor VTE Prophylaxis: Sub-Q Heparin (Unfractionated) VTE Mechanical Devices: Intermittant Pneumatic CD Resuscitation Status: DNR/DNI:Do Not Resuscitate/Intubate Time spent 30 minutes Willie Segundo MD March 03, 2017 16:26
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
[2017-03-03] MEDS: Heparin 25K Unit/500mL 0.45 NS 25,000 UNIT in IV Premix 1 EACH IV SCH (22:12)
[2017-03-04] VITALS (13 sets, daily range): BP systolic 108–137; BP diastolic 68–90; PULSE 62–96; RESP 14–22; O2SAT 91–97
[2017-03-04] MEDS: HYDROcodone-APAP 5-325 mg Tablet PO PRN ×3 (03:35→21:19)
[2017-03-04] MEDS: Ipratropium 0.02% 0.5 mg/2.5 mL Inhalation Solution NEB SCH ×4 (03:44→20:44)
--- NOTE | 2017-03-04 05:21 | NUR ---
Respiratory/pain Pt states that he has much improved respiratory status and that his SOB is minimal compared to when he came into the hospital. SpO2 88-92% on 2 LC NC. Pt uses 2.5 Liters at home. Pt c/o pain in his lower right flank area 7/10 x2 this shift. Administered 2 tabs [place] and effective, pt able to rest at times. VSS and Tele Afib 80's to 100's. Pt has been NPO since 0000 for possible GERMAN/cardioversion today.
[2017-03-04] MEDS: Albuterol-Ipratropium 3 mL Inhalation Solution NEB SCH ×3 (07:13→20:44)
[2017-03-04 07:45] LABS: Mean Corpuscular Hemoglobin 32.9 pg (27.0-35.0); Mean Corpuscular Volume 107.9 fL (81-100); Platelet Count 300 bil/L (150-400)
[2017-03-04 08:32] LABS: BASOPHILS % (AUTO) 1 % (0-3); EOSINOPHILS % (AUTO) 1 % (0-5); MONOCYTES % (AUTO) 7 % (4-12); NEUTROPHILS % (AUTO) 81 % (40-74)
[2017-03-04] MEDS: predniSONE 5 mg Tablet PO SCH ×2 (08:59→21:19)
[2017-03-04] MEDS: lamoTRIgine 100 mg Tablet PO SCH (08:59)
[2017-03-04] MEDS: Pantoprazole 40 mg ER24 Tablet PO SCH (08:59)
[2017-03-04] MEDS: buPROPion SR 100 mg ER12 Tablet PO SCH (09:00)
--- NOTE | 2017-03-04 09:28 | PCM.PNCARD ---
Subjective Date of service March 04, 2017 Chief Complaint SOB History of Present Illness This patient presented to [facility] with atrial flutter with RVR. He was given Dilt IV w/o much success. He was started on metoprolol and has repsonded very nicely. His HR has been around 75-85 bpm. His breathing has improved. Today we discussed about anticoagulant and he has elected to go on Eliquis. Constitutional: Denies: Fever Cardiovascular: Reports: Irregular Heart Rate, Denies: Chest Pain Respiratory: Reports: SOB with Exertion Gastrointestinal: Denies: Abdominal Pain Skin: Reports: Bruising Neurological: Denies: Confusion Exam Vital Signs Vital Sign - Last Date Time Temp Pulse Resp B/P Pulse Ox O2 Delivery O2 Flow Rate FiO2 03/04/17 09:09 36.6 62 22 129/73 96 Nasal Cannula 2.00 Intake and Output 03/03/17 03/03/17 03/04/17 Cumulative From/Thru 15:00 23:00 07:00 02/28/17 10:47 - 03/04/17 06:50 Intake Total 76 ml 1045 ml 800 ml 8136 ml Output Total 775 ml 625 ml 4800 ml Balance 76 ml 270 ml 175 ml 3336 ml Intake Oral 730 ml 800 ml 3875 ml IV Total 76 ml 315 ml 4261 ml Output Urine Total 775 ml 625 ml 4800 ml # Voids 7 General: Pleasant Cooperative Moderately obese Skin: Warm & dry to touch Neck: Nuchal obesity:JVP assess difficult Cardiac: Regularly irregular rhythm Neurological: Alert & oriented Psychological: Affect & interaction appropriate Memory grossly intact Lab and Diagnostics Labs CBC Test 03/04/17 04:15 White Blood Count 6.3th/mm3 (3.8-10.1) Red Blood Count 3.40mil/mm3 (4.40-5.80) Hemoglobin 11.2g/dL (13.8-17.2) Hematocrit 36.7% (41.0-50.0) Mean Corpuscular Volume 107.9fL (81-100) Mean Corpuscular Hemoglobin 32.9pg (27.0-35.0) Mean Corpuscular Hemoglobin Concent 30.5% (32.0-37.0) Red Cell Distribution Width 15.4% (12.3-15.4) Platelet Count 300bil/L (150-400) Neutrophils (%) (Auto) 81% (40-74) Lymphocytes (%) (Auto) 8% (14-46) Monocytes (%) (Auto) 7% (4-12) Eosinophils (%) (Auto) 1% (0-5) Basophils (%) (Auto) 1% (0-3) Metamyelocytes % 1% (0-0) CMP Test 02/28/17 11:20 03/01/17 00:42 03/02/17 03:44 03/03/17 03:15 Lactic Acid Level 1.6mmol/L Pro-B-Type Natriuretic Peptide 1271pg/mL Procalcitonin 0.10ng/mL Troponin T 0.010ug/L Thyroid Stimulating Hormone (TSH) 0.579uIU/mL Free Thyroxine 0.87ng/dL Phosphorus Level 3.4mg/dL Magnesium Level 2.1mg/dL Total Bilirubin 0.4mg/dL Aspartate Amino Transf (AST/SGOT) 37U/L Alanine Aminotransferase (ALT/SGPT) 42U/L Alkaline Phosphatase 113U/L Total Protein 5.9g/dL Albumin 3.6g/dL Test 03/04/17 04:15 Sodium Level 143mEq/L Potassium Level 4.7mEq/L Chloride Level 102mEq/L Carbon Dioxide Level 31mmol/L Blood Urea Nitrogen 12mg/dL Creatinine 0.70mg/dL Estimat Glomerular Filtration Rate 117mL/min Glucose Level 133mg/dL Calcium Level 9.4mg/dL Result Diagram: 03/04/17 0415 03/04/17 0415 Additional Diagnostics: Echocardiogram Report Name: SONAM HIRSCH WStudy Date: 03/03/2017 Height: 67 in Hospital Exam Location: [facility] Weight: 181 lb Gender: Male BSA: 1.9 m2 : 1945 Age: 71 yrs BP: 132/88 mmHg Reason For Study: A-FLUTTER Ordering Physician: Willie Segundo Performed By: Stefanie Gregg Referring Physician: Dr. Diane Aldana Interpretation Summary Left ventricular wall thickness is mildly increased. The ejection fraction is estimated to be 35-40%. Barring the apical segments, melissa entire LV is moderately hypokinetic. LVEF has decreased significantly since 2008 There is no significant valvular heart disease. Procedure: A two-dimensional transthoracic echocardiogram with color flow and Doppler was performed. The study quality was technically adequate. Comparison is made with the echocardiogram of 04-05-2009. Left Ventricle: The left ventricle is normal in size. Left ventricular wall thickness is mildly increased. The ejection fraction is estimated to be 35- 40%. Barring the apical segments, melissa entire LV is moderately hypokinetic. Right Ventricle: The right ventricle is mild to moderately dilated. Right ventricular systolic function is mildly reduced. Atria: The left atrium is moderately dilated. The right atrium is severely dilated. There is no Doppler evidence for an atrial septal defect. Mitral Valve: The mitral valve leaflets appear normal. There is no evidence of stenosis, fluttering, or prolapse. There is trace mitral regurgitation. Aortic Valve: The aortic valve is trileaflet. The aortic valve opens well. No aortic regurgitation is present. Tricuspid Valve: The tricuspid valve leaflets are thin and pliable. There is trace tricuspid regurgitation. Right ventricular systolic pressure is estimated to be 26 mmHg plus the clinically estimated CVP which cannot be estimated on this exam. Pulmonic Valve: The pulmonic valve is not well seen, but is grossly normal. There is a trace or physiologic amount of pulmonic regurgitation. Great Vessels: The aortic root is mildly dilated. The ascending aorta is mildly enlarged. The aortic arch is moderately enlarged. The pulmonary artery is not well visualized, but is probably normal size. The IVC is dilated, but has some respiratory collapse suggesting high central venous pressure. Pericardium/ Pleura There is no pericardial effusion. There is no pleural effusion. Assessment & Plan Problems: (1) Acute congestive heart failure with left ventricular diastolic dysfunction Plan: Most likely secondary to atrial flutter with RVR. He has responded very nicely with metoprolol tartrate. I will like to switch him to Toprol XL 50 mg BID. His amiodarone has been stopped and we will continue with beta blockers for now. We will continue to optimize his HF meds as inpatient and outpatient. I will like to start him on Lisinopril 10 mg once a day as well. I believe that once he continues to have good rate control then we will see an improvement of his EF and hopefully his SOB will improve as well. I have ordered PT archie to see if he is able to go home. He wants to go home today but I suspect that tomorrow will be a better day for him to go home. If he continues to have good rate control w/o amiodarone on board then he will not need to be discharged on amiodarone. He is not a candidate for coronary intervention due to his metastatic melanoma and other comorbidities. He has elected to go on Eliquis 5 mg twice a day to prevent cardioembolic strokes 2/2 atrial flutter. His breathing has improved accordingly to the patient so hopefully we will not need a DCCV. Status: Acute ICD Code: I50.31 (2) Atrial flutter with rapid ventricular response Plan: Improving with metoprolol on board. Will hold amiodarone for now and restart if necessary. Status: Acute ICD Code: I48.92 (3) Metastatic melanoma Status: Acute ICD Code: C79.9 Pain Evaluation: Adequate Pain Control GI Prophylaxis: Proton Pump Inhibitor VTE Prophylaxis: Sub-Q Heparin (Unfractionated) VTE Mechanical Devices: Intermittant Pneumatic CD Resuscitation Status: DNR/DNI:Do Not Resuscitate/Intubate Time spent 20 minutes Willie Segundo MD March 04, 2017 09:28
--- NOTE | 2017-03-04 11:47 | DRSVH ---
PROCEDURE: X-RAY CHEST, TWO VIEWS ([id number]) INDICATIONS: Follow up for pleural effusion TECHNIQUE: 2 views of the chest were acquired. COMPARISON: [facility], US, US CHEST PLEURAL, 11/11/2016, 13:06. [facility], CT, CT CHEST ABD PELVIS W CON, 10/14/2016, 10:25. [facility], CT, CT CHEST ABD PELVIS W CON, 01/10/2017, 11:02. [facility], CT, CT ANGIO CHEST PE, 02/28/2017, 12:06. [facility], CR, XR CHEST 2VW, 05/21/2016, 18:00. FINDINGS: Surgical changes and devices: None. Lungs and pleura: Persistent airspace opacity and small left pleural effusion is present, otherwise m id/basilar chronic interstitial densities are unchanged. No pneumothorax. Mediastinum: Mediastinal contours are normal. Heart size is normal. Bones and chest wall: No suspicious bony abnormalities. Soft tissues appear unremarkable. IMPRESSION: 1. Persistent small left pleural effusion and basilar airspace opacity similar to recent CT scan and consistent with compressive atelectasis versus pneumonia or neoplasm. Continued radiographic surveill ance to resolution is recommended. 2. Chronic basilar interstitial opacities unchanged. Dictated by: Daquan THOMPSON Interpreted: Renetta Espinoza MD on 03/04/2017 at 11:43 Transcribed by: OLGA on 03/04/2017 at 11:46 Approved by: Renetta Espinoza M.D. on 03/04/2017 at 17:05
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
--- NOTE | 2017-03-04 16:52 | NUR ---
O2 needs Pt on 2L NC and sats are 93% at rest. When pt up and ambulating and or eating pt will desat to low 80's on 2L NC. Reminded pt to stop and take a few breaths when feeling SOB. Continue to monitor.
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
[2017-03-04] MEDS ORDERED: MeTOProlol XL 50 mg ER24 Tablet PO ONE (18:30)
[2017-03-04] MEDS ORDERED: MeTOProlol XL 50 mg ER24 Tablet PO SCH (20:30)
[2017-03-05] VITALS (7 sets, daily range): BP systolic 118–132; BP diastolic 59–81; PULSE 80–97; RESP 14–18; O2SAT 95–98
[2017-03-05] MEDS: Ipratropium 0.02% 0.5 mg/2.5 mL Inhalation Solution NEB SCH (01:33)
[2017-03-05] MEDS: HYDROcodone-APAP 5-325 mg Tablet PO PRN (01:45)
--- NOTE | 2017-03-05 04:24 | NUR ---
Bowl Movement/Pain/Respiratory Pt was given Bowel meds on previous shift for no BM in 4 days, pt able to have large BM this shift and stated that he felt much better. Pt c/o pain 6-06/05 Administered PRN [place] and effective for "about an hour or 2" per pt. Pt continues with 2L NC with SpO2's ranging from 89-96%. VSS and Tele Afib 80's
[2017-03-05] MEDS ORDERED: MeTOProlol XL 50 mg ER24 Tablet PO SCH (08:30)
[2017-03-05] MEDS: predniSONE 5 mg Tablet PO SCH (09:05)
[2017-03-05] MEDS: buPROPion SR 100 mg ER12 Tablet PO SCH (09:06)
[2017-03-05] MEDS: Pantoprazole 40 mg ER24 Tablet PO SCH (09:06)
[2017-03-05] MEDS: lamoTRIgine 100 mg Tablet PO SCH (09:08)
[2017-03-05] MEDS: Albuterol-Ipratropium 3 mL Inhalation Solution NEB SCH ×2 (09:19→12:21)
[2017-03-05] MEDS ORDERED: LISI-610 PO (10:43)
[2017-03-05] MEDS ORDERED: METO-272 PO (10:43)
[2017-03-05] MEDS ORDERED: ATRV10T PO (10:43)
[2017-03-05] MEDS ORDERED: HYDR-4003 PO (10:43)
[2017-03-05] MEDS ORDERED: APIX5TAB PO (10:44)
--- NOTE | 2017-03-05 10:48 | PCM.DIMED ---
Carolyn Shearer DO 03/05/17 1048: Discharge Instructions Date of Service March 05, 2017 Dates of Hospitalization February 28, 2017 at 14:14 Discharge Diagnosis Discharge Diagnosis 1. Atrial flutter, new onset, present on admission, improving. 2. Chest wall pain, acute on chronic, ongoing 3. Pleural effusion, possibly malignant, present on admission 4. COPD, not in exacerbation, on 1.5 L home O2 5. Sarcoidosis 6. Acquired adrenal insufficiency from chronic steroid use 7. AB 8. Malignant melanoma, followed by Dr. Sauceda 9. Macrocytic anemia, chronic 10. Psychiatric disorder, NOS 11. Difficult social situation Medication Instructions You were started on several new medications at this admission. You were started on metoprolol which is a heart medication to slow down your heart rate. You were also started on a blood pressure medication called lisinopril. He will also started on Elquis, which is an anticoagulant. You are also started on atorvastatin, which is meant to lower your cholesterol. Please take all of these medications. Diet Heart Healthy Activity Limited until seen by PCP Call your provider Fever or Chills, Shortness of breath, Bleeding Patient Instructions Please take all of your medications, including the new medications that are prescribed to you at this admission. Please follow-up with Dr. Enciso in the cardiology clinic in 3-4 weeks. Please follow-up with your primary care provider in about 1 week. Please follow-up with your oncologist as you were scheduled to do so. Follow-up Provider: Diane Aldana MD Follow-up with PCP in: 1 week Provider: Angélica Enciso MD Follow-up in: 3 weeks Blaise Meehan MD 03/05/17 2015: Discharge Instructions Attending's Statement Patient seen and examined with Dr. Shearer. Chart reviewed and agree with the above discharge instructions Carolyn Shearer DO March 05, 2017 10:48 Blaise Meehan MD March 05, 2017 20:15
--- NOTE | 2017-03-05 11:15 | NUR ---
Social Work Note: Discharge Data& Assessment: Per pt is medically ready to discharge home via POV. SW met with pt at bedside to confirm discharge plan and assess for any unmet needs. Carloz Cruz is a 71 year old male admitted on 02/28/2017 for A FLutter with RVR. Per pt is medically improved and ready to discharge. PT has been recommending HH services, however pt declined. Pt states he feels like he is close enough to his baseline and does not require these services. Pt states his friend will transport him home today and his portable oxygen tank is already in his car. SW notified [facility] of pt discharge. Pt denies any other needs. No other discharge needs identified. Plan: Per pt is medically ready to discharge home via POV. Pt denies any other needs. No other discharge needs identified. JACI Sheffield
--- NOTE | 2017-03-05 13:45 | NUR ---
D/C Note.. Pt had d/c meds and prescriptions reviewed. D/C home with home O2 tank/and belongings accompanied by his nephew.
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
[2017-04-10] MEDS ORDERED: OXYC-466 PO (17:22)
[2017-04-11] MEDS ORDERED: APIX5TAB PO (07:01)
[2017-04-11] MEDS ORDERED: LORA0.5T PO (07:01)
[2017-04-11] MEDS ORDERED: METO-272 PO (08:44)
== END 2017-03-05 13:04 | disposition home or self-care (01) | DRG 308 ==
LOC: SED 10:40 → CCU 14:14 → PCC 14:47
PROVIDERS: ADMIT Hospitalist; ATTEND Hospitalist
PROC: 4A033R1 Measurement of Arterial Saturation, Peripheral, Percutaneous Approach (ICD-10-PCS; principal; 2017-03-01)
DX: I48.92 Unspecified atrial flutter (principal); I50.31 Acute diastolic (congestive) heart failure; J90 Pleural effusion, not elsewhere classified; E27.3 Drug-induced adrenocortical insufficiency; C78.02 Secondary malignant neoplasm of left lung; R07.89 Other chest pain; J44.9 Chronic obstructive pulmonary disease, unspecified; D86.9 Sarcoidosis, unspecified; D53.9 Nutritional anemia, unspecified; T38.0X5A Adverse effect of glucocorticoids and synthetic analogues, initial encounter; C43.4 Malignant melanoma of scalp and neck; G47.33 Obstructive sleep apnea (adult) (pediatric); F17.210 Nicotine dependence, cigarettes, uncomplicated; F99 Mental disorder, not otherwise specified

== ENCOUNTER 2017-03-28 10:59 | Emergency (ER) | payer MEDICARE ==
[~2017-03-28] VITALS: Ht 177.8 cm; Wt 75.0 kg
[~2017-03-28 10:59] MED LIST changes: -ALBU8.5H2 INHALATION; +APIX5TAB PO; +ATRV10T PO; +HYDR-4003 PO; +IPRA3AMP IH; -IPRA3AMP NEB; +LISI-610 PO; +METO-272 PO; +PRAV40TA PO; +PRD5T PO; -PRED-508 PO
[2017-03-28 11:03] VITALS: BP 150/93; PULSE 125; RESP 28; O2SAT 93
--- NOTE | 2017-03-28 11:23 | ED.REPORT ---
HPI-Trauma Minor / Fall Date of Service Mar 28, 2017 ED Provider: Dr. Asad Pack M.D. The patient is a 71 year old male with a medical history including COPD, metastatic melanoma to the lung, and atrial flutter on Eliquis who presents to the ED with head trauma after a mechanical ground level fall last night. The patient currently reports left-sided head pain, neck pain, and upper back pain. He denies loss of consciousness, chest pain, lightheadedness, bladder incontinence, urinary incontinence, numbness, weakness, or other symptoms. The patient was recently admitted to the hospital from 02/28 - 03/05 with chest pain and new-onset atrial flutter. Nursing Notes Stated Complaint: HEAD PAIN Chief Complaint: Head, Face, Neck Trauma Nursing Notes Reviewed: Yes Allergies: Coded Allergies: No Known Drug Allergies (Verified Allergy, Unknown, 03/28/17) Scheduled Apixaban (Eliquis) 5 Mg Tablet 5 MG PO BID Atorvastatin (Lipitor) 10 Mg Tab 10 MG PO DAILY Bupropion ER (Bupropion ER) 100 Mg Tablet.er 100 MG PO DAILY Fluoxetine (Fluoxetine) 20 Mg Capsule 20 MG PO DAILY Ipratropium/Albuterol Sulfate (Iprat-Albut 0.5-3(2.5) mg/3 mL Inhalant Soln) 3 Ml Ampul.neb 3 ML IH TID Lamotrigine (Lamotrigine) 100 Mg Tablet 100 MG PO DAILY Lisinopril (Zestril) 10 Mg Tablet 10 MG PO DAILY Metoprolol Succinate ER (Metoprolol Succinate ER) 50 Mg Tab.er.24h 50 MG PO BID Pantoprazole DR (Pantoprazole DR) 40 Mg Tablet.dr 40 MG PO DAILYAC Pravastatin (Pravastatin) 40 Mg Tablet 40 MG PO QAM Prednisone (PredniSONE) 5 Mg Tab 10 MG PO BID Quetiapine Fumarate (Seroquel) 200 Mg Tablet 200 MG PO HS Trazodone (Trazodone) 50 Mg Tablet 50 MG PO HS Scheduled PRN Hydrocodone-Acetaminophen 5-325 mg (Hydrocodone-Acetaminophen 5-325 mg) 1 Each Tablet 1-2 TABLET PO Q4H PRN PRN For Moderate Pain oxyCODONE-Acetaminophen 5-325 mg (oxyCODONE-Acetaminophen 5-325 mg) 1 Each Tablet 1 TAB PO Q6H PRN PRN For Pain General Time Seen by MD: 11:22 Chief Complaint Fall, Head injury Hx Obtained From: Patient Arrived By: Walk-in Onset Occurred: Yesterday (Last night) Symptom Duration: Since onset Caused by: Accidental, Fall on ground Location: Back Head Neck Quality: Painful Severity: Current: Moderate Severity: Maximum: Moderate Pertinent Negative: Relieved by nothing Context: Immunizations Tetanus up to date Recent Healthcare: Recent doctor visit, Recent hospitalization Past Medical History Past Medical History Metastatic melanoma to the lung COPD History of sarcoidosis Chronic glucocorticoid therapy Osteoporosis Dyslipidemia Atrial flutter Past Surgical History Lung biospy Hemmorrhoid times 2 Family History Mother age 93 alive and healthy Father 53 esophageal cancer he was a smoker 2 sisters one at 55 of breast cancer One brother alive and healthy Smoking History Current Every Day Smoker Social History etoh nightly Other Social History: Local resident Occupation lives by self, 1 story house friends will help him 02/27/2017 currently significant social issues with his children Ambulatory Status Independent Review of Systems Review of Systems Note: + Left-sided head pain Constitutional: Denies: Fever Respiratory: Denies: Non-productive cough, Shortness of breath Musculoskeletal: Reports: Back pain (Upper), Neck pain Neurologic: Denies: Bladder dysfunction, Bowel dysfunction, Change LOC, Lightheaded, Numbness, Weakness Complete sys rev & neg: except as marked. Cardiovascular: Denies: Chest pain Male: Denies Incontinence Physical Exam Initial Vital Signs Vital Signs (First) Date Time Temp Pulse Resp B/P Pulse Ox O2 Delivery O2 Flow Rate FiO2 03/28/17 11:03 36.4 125 28 150/93 93 Room Air 03/28/17 13:08 2.5 Initial VS: Reviewed Skin: Warm, Dry, No cyanosis Psychiatric: Mood/affect normal, Behavior normal, Normal thought content General/Constitutional: Awake, Alert Neck: Atraumatic Neck / Muscle Tenderness: Positive: Midline tenderness mid Head / Eyes: Normocephalic, PERRL, EOMI Trauma - General: Positive: Hematoma (2cm x 3cm, left occipital region, with surrounding ecchymosis) ENT: Airway patent, Mucous membranes moist, Pharynx NL Respiratory / Chest: Breath sounds NL, Breath sounds = bilat, No respiratory distress Cardiovascular: Heart rate NL, Heart sounds NL Heart Rate / Rhythm: Positive: Irregular rhythm Abdomen: Soft, Non-tender Back: Atraumatic Flank / Spine / Paraspinal: Positive: Thoracic spine tender..., Negative: Lumbar spine tender... Neurologic: Oriented X3, Speech NL, No motor deficits, No sensory deficits Interpretation & Diagnostics CT THORACIC SPINE W/O CONTRAST: IMPRESSION: There is a new compression fracture at T7 not present 01/10/17. Previously present mild superior endplate impaction fracture and near vertebra plana compression fracture at T4 and T5, respectively, have not changed. Additional areas of mild osteoporotic superior endplate impaction fractures are stable over time more inferiorly at T11 and T12. Dictated by: Aron Herbert M.D. on 03/28/2017 at 13:19 CT LUMBAR SPINE W/O CONTRAST: IMPRESSION: Chronic moderate to moderately severe degenerative disc disease and facet osteoarthritis along the lungs are fine with convex leftward scoliosis centered at L4-5 and compensatory, next rightward scoliosis centered at L1. Note is again made of a L1 anterior wedge moderate compression fracture, with 44 % anterior height reduction of the L1 vertebral body when compared to that of L2. No acute disease. Dictated by: Aron Herbert M.D. on 03/28/2017 at 13:13 Lab Results Interpretation Result Diagram: 03/28/17 1302 03/28/17 1302 Test 03/28/17 13:02 White Blood Count 10.6th/mm3 (3.8-10.1) Red Blood Count 4.17mil/mm3 (4.40-5.80) Hemoglobin 13.4g/dL (13.8-17.2) Hematocrit 42.3% (41.0-50.0) Mean Corpuscular Volume 101.4fL (81-100) Mean Corpuscular Hemoglobin 32.1pg (27.0-35.0) Mean Corpuscular Hemoglobin Concent 31.7% (32.0-37.0) Red Cell Distribution Width 13.7% (12.3-15.4) Platelet Count 303bil/L (150-400) Neutrophils (%) (Auto) 82.8% (40-74) Lymphocytes (%) (Auto) 7.3% (14-46) Monocytes (%) (Auto) 7.9% (4-12) Eosinophils (%) (Auto) 0.4% (0-5) Basophils (%) (Auto) 0.5% (0-3) Prothrombin Time 11.2sec (8.1-12.5) Prothromb Time International Ratio 1.05ratio Activated Partial Thromboplast Time 24.4sec (22.8-33.0) Sodium Level 140mEq/L (134-144) Potassium Level 5.2mEq/L (3.5-5.2) Chloride Level 101mEq/L (97-108) Carbon Dioxide Level 25mmol/L (18-29) Blood Urea Nitrogen 26mg/dL (8-27) Creatinine 0.81mg/dL (0.76-1.27) Estimat Glomerular Filtration Rate 99mL/min (>59) Glucose Level 119mg/dL (60-99) Calcium Level 10.0mg/dL (8.5-10.1) Total Bilirubin 0.7mg/dL (0.0-1.2) Aspartate Amino Transf (AST/SGOT) 28U/L (0-50) Alanine Aminotransferase (ALT/SGPT) 37U/L (0-44) Alkaline Phosphatase 104U/L (25-160) Troponin T < 0.010ug/L (0.0-0.011) Total Protein 6.1g/dL (6.4-8.4) Albumin 3.8g/dL (3.4-5.0) Hold [place] Top Tube Received (Received) ECG Interpretation ECG Interpretation: Atrial flutter with predominant 2:1 AV block rate 116 RBBB Time: 12:12 Interpreted by: ED physician X-Ray Chest Interpretation Chest Xray Interpretation: IMPRESSION: Persistent appearance of effusion and consolidation in the left base, mildly improved compared prior exam. Dictated by: Renetta Espinoza M.D. on 03/28/2017 at 11:14 View: Portable, 1 view Interpretation / Wet Read by: Interpret - Radiologist CT Head Interpretation IMPRESSION: 1. No acute intracranial abnormality. 2. Subcutaneous lesion in the left posterior neck likely representing a hematoma. Recommend correlation with clinical exam and history. 2. Small region of encephalomalacia redemonstrated in the left posterior parietal lobe. Mild chronic white matter small vessel ischemic changes and cerebral volume loss also again noted. 2. Dictated by: Victor Hugo Gardner M.D. on 03/28/2017 at 11:30 Study: Head CT no contrast Interpretation / Wet Read by: Interpret - Radiologist CT C-Spine Interpretation IMPRESSION: Moderately severe to severe degenerative disc disease and facet osteoarthritis over the middle and lower thirds of the cervical spine, little if any worsened from the comparison study from 06/07/14. Significant spinal and foraminal stenosis appears present from C4 inferiorly, and most pronounced at C4-5 and C5-6, as was previously the case. Grade 1 anterolisthesis of L3 on L4, as was previously the case, due to degenerative change. Dictated by: Aron Herbert M.D. on 03/28/2017 at 13:10 Study type: CT no contrast Interpretation / Wet Read by: Interpret - Radiologist Re-Eval/Medical Decision Med Decision/Clinical Course 71-year-old male with complex past medical history presenting to the ED after clear mechanical fall last night. CT scans of the head and neck negative for acute abnormality. He does have a hematoma to the left occipital region that is improving. He does have a new compression fracture of T7; spoke w Dr. Walter as noted. Patient notes improvement on reassessment. Seems reasonable to discharge home with careful return precautions, PCP follow-up and Ortho as per above. Source of Hx: Old records Re-Evaluation/Progress : Time of Eval: 14:07 Patient Status: Condition improved Re-Evaluation/Progress Note: Discussed with patient x-ray, CT, and lab results, diagnosis, and plan for discharge. Follow-up and return to the ER instructions given. Patient agrees with plan for care and all questions were addressed. Consultation : Referral / Consult Name: Sergo Walter DO Consulted With: Orthopedic Call Returned at: 14:10 Service Desk Lead: Agrees with eval, Agrees with plan Note: Dr. Lara consulted Dr. Walter. Discussed patient's case. Counseled Regarding: Diagnosis, Lab results, Need for follow-up, When/why to return to ED Discharge & Departure Impression: Primary Impression: Compression fracture of thoracic vertebra Encounter type: initial encounter Fracture type: closed Qualified Code: S22.000A - Wedge compression fracture of unspecified thoracic vertebra, initial encounter for closed fracture Additional Impression: Fall Encounter type: initial encounter Qualified Code: W19.XXXA - Unspecified fall, initial encounter Disposition: Home Discharge Condition All VS Reviewed: Yes Condition: Improved Additional Instructions: You have a compression fracture at T7 (middle of your back). You will benefit from a TLSO back brace. I have given you a prescription for this and you will need to take it to [place] [id number] [facility], [place] [address] You may benefit from a surgical procedure called kyphoplasty; please discuss this further with Dr. Madsen. Thank you for the opportunity to be a part of your care today. Please follow up with your regular doctor as well, as discussed. Referrals: Diane Aldana MD (PCP) Cathi Madsen MD Attestation Portions of this note were transcribed by Miguelina Oquendo. I, Dr. Pack, personally performed the history, physical exam, and medical decision-making; I reviewed and confirmed the accuracy of the information in the transcribed note. Signed by: Radha Heck, 03/28/2017, 15:50 copies to: Diane Aldana MD; Cathi Madsen MD, William B MD Mar 28, 2017 11:23 MIGUELINA OQUENDO Mar 28, 2017 11:38
--- NOTE | 2017-03-28 11:40 | DRSVH ---
PROCEDURE: CT BRAIN WITHOUT CONTRAST ([id number]) INDICATIONS: fall TECHNIQUE: Noncontrast 4.5 mm thick angled axial sections acquired from the foramen magnum to the vertex, with c oronal reformats. COMPARISON: [facility], MR, MR BRAIN W&WO CON, 01/29/2016, 7:10. [facility], MR, MR BRAIN W&WO CON, 07/16/2016, 11:34. [facility], MR, MR BRAIN W&WO CON, 10/14/2016, 10:56. [facility], CT, BRAIN W/O CONTRAST, 06/07/2014, 14:52. FINDINGS: Image quality: Excellent. CSF spaces: Basal cisterns are patent. No extra-axial fluid collections. The ventricles are symmet татьяна in size and shape. There is mild cerebral volume loss, with resultant ventricular and sulcal pro minence. Brain: No intracranial hemorrhage, mass, or mass effect. There is a small region of encephalomalaci a redemonstrated in the posterior left parietal lobe as seen on the prior MRIs. There are also subco rtical, periventricular and deep white matter hypodensities consistent with mild chronic small vessel ischemic changes. There is intracranial internal carotid artery atherosclerosis. Skull and face: There is a dense ovoid subcutaneous collection or mass in the left posterior neck me asuring up to 4.4 x 1.7 cm with associated fat stranding suggestive of a hematoma. Calvarium and vis ualized facial bones appear intact, without suspicious lesions. Sinuses: Visualized sinuses demonstrate mild mucosal thickening within the maxillary sinuses. Masto id air cells are clear. IMPRESSION: 1. No acute intracranial abnormality. 2. Subcutaneous lesion in the left posterior neck likely representing a hematoma. Recommend correla tion with clinical exam and history. 2. Small region of encephalomalacia redemonstrated in the left posterior parietal lobe. Mild chroni c white matter small vessel ischemic changes and cerebral volume loss also again noted. 2. Dictated by: Victor Hugo Gardner M.D. on 03/28/2017 at 11:30 Approved by: Victor Hugo Gardner M.D. on 03/28/2017 at 11:39
--- NOTE | 2017-03-28 12:24 | DRSVH ---
PROCEDURE: X-RAY CHEST ONE VIEW, PORTABLE ([id number]) INDICATIONS: fall, trauma TECHNIQUE: One view of the chest was acquired. COMPARISON: [facility], CR, XR CHEST 2VW, 03/04/2017, 10:46. FINDINGS: Surgical changes and devices: None. Lungs and pleura: There is a persistent appearance of effusion and consolidation in the left base, m ildly improved compared prior exam. Mediastinum: Mediastinal contours appear normal. Heart size is normal. Bones and chest wall: Lower left rib deformities are unchanged. Overlying soft tissues appear unrem arkable. IMPRESSION: Persistent appearance of effusion and consolidation in the left base, mildly improved co mpared prior exam. Dictated by: Renetta Espinoza M.D. on 03/28/2017 at 11:14 Approved by: Renetta Espinoza M.D. on 03/28/2017 at 11:23
[2017-03-28] MEDS ORDERED: HYDROcodone-APAP 5-325 mg Tablet PO ONE ×2 (12:59→13:05)
[2017-03-28 13:08] VITALS: BP 101/60; PULSE 100; RESP 17; O2SAT 97
--- NOTE | 2017-03-28 13:14 | DRSVH ---
PROCEDURE: CT CERVICAL SPINE WITHOUT CONTRAST ([id number]) INDICATIONS: fall, trauma TECHNIQUE: Noncontrast 3 mm thick sections acquired from the skull base to the T4 level. Sagittal and coronal r eformats were then constructed. For radiation dose reduction, the following was used: automated exp osure control, adjustment of mA and/or kV according to patient size. COMPARISON: [facility], CT, C-SPINE W/O CONTRAST, 06/07/2014, 14:52. FINDINGS: Image quality: Excellent. Bones: No fractures or dislocations. Visualized superior ribs are intact. There is moderately billy re to severe degenerative disc disease and facet osteoarthritis along the middle third of the cervica l spine, with anterolisthesis grade 1 of C3 on C4. Significant spinal and foraminal stenosis would b e expected from C3 inferiorly. No acute trauma found. Soft tissues: Prevertebral soft tissues are normal in thickness. No paravertebral hematomas. No ap ical pneumothoraces. IMPRESSION: Moderately severe to severe degenerative disc disease and facet osteoarthritis over the middle and lower thirds of the cervical spine, little if any worsened from the comparison study from 06/07/14. Significant spinal and foraminal stenosis appears present from C4 inferiorly, and most pron ounced at C4-5 and C5-6, as was previously the case. Grade 1 anterolisthesis of L3 on L4, as was pre viously the case, due to degenerative change. Dictated by: Aron Herbert M.D. on 03/28/2017 at 13:10 Approved by: Aron Herbert M.D. on 03/28/2017 at 13:13
[2017-03-28 13:16] LABS: BASOPHILS % (AUTO) 0.5 % (0-3); EOSINOPHILS % (AUTO) 0.4 % (0-5); MONOCYTES % (AUTO) 7.9 % (4-12); Mean Corpuscular Hemoglobin 32.1 pg (27.0-35.0); Mean Corpuscular Volume 101.4 fL (81-100); NEUTROPHILS % (AUTO) 82.8 % (40-74); Platelet Count 303 bil/L (150-400)
--- NOTE | 2017-03-28 13:21 | DRSVH ---
PROCEDURE: CT LUMBAR SPINE WITHOUT CONTRAST ([id number]) INDICATIONS: fall, trauma TECHNIQUE: Noncontrast 3 mm thick sections acquired from the T12 level to the sacrum. Sagittal and coronal refo rmats were constructed. For radiation dose reduction, the following was used: automated exposure co ntrol. COMPARISON: [facility], CT, CT CHEST ABD PELVIS W CON, 01/10/2017, 11:02. FINDINGS: Image quality: Excellent. Bones: There is normal bony alignment except for grade one anterolisthesis of L4 and L5, previously present during CT scanning that included sagittal reformatt and imaging 01/10/17 without appreciable w orsening. No acute vertebral body compression fractures. No suspicious lytic or blastic bony lesion s. Central spinal caliber is of normal overall caliber. No pars defects. T12-S1: Stable previously present moderate to moderately severe degenerative disc disease along the l umbosacral spine. At L1 there is a moderate anterior wedge compression fracture previously present, comprised of a 6% posterior vertebral body height reduction of L1 when reference to L2 and a 44% ante rior height reduction of the anterior L1 vertebral body when compared to L2. This is not appreciably worsened. Soft tissues: No retroperitoneal masses or hematomas. Visualized aorta is normal in caliber. IMPRESSION: Chronic moderate to moderately severe degenerative disc disease and facet osteoarthritis along the lungs are fine with convex leftward scoliosis centered at L4-5 and compensatory, next right marcano scoliosis centered at L1. Note is again made of a L1 anterior wedge moderate compression fractu re, with 44% anterior height reduction of the L1 vertebral body when compared to that of L2. No acut e disease. Dictated by: Aron Herbert M.D. on 03/28/2017 at 13:13 Approved by: Aron Herbert M.D. on 03/28/2017 at 13:19
[2017-03-28 13:31] LABS: INR 1.05 ratio
--- NOTE | 2017-03-28 13:34 | DRSVH ---
PROCEDURE: CT THORACIC SPINE WITHOUT CONTRAST ([id number]) INDICATIONS: fall, trauma TECHNIQUE: Noncontrast 3 mm thick sections acquired through the region of interest in the thoracic spine. Sagit dennise and coronal reformats were then constructed. For radiation dose reduction, the following was use d: automated exposure control. COMPARISON: [facility], CT, CT CERVICAL SPINE WO CON, 03/28/2017, 12:47. [facility], CT, CT LUMBAR SPINE WO CON, 03/28/2017, 12:47. [facility], CT, CT CHEST ABD PELV IS W CON, 01/10/2017, 11:02. FINDINGS: Image quality: Excellent. Bones: There is normal overall bony alignment except for a small degree of kyphosis centered at T5. There is what likely is an acute vertebral body compression fracture at T7 given the absence of any acute or subacute appearing compression fracture at that level 01/10/17. There is a stable appearing mild superior endplate impaction fracture at T4 and near vertebra plana compression fracture also pre viously present at T5. No suspicious sclerotic or lytic bony lesions. Central spinal canal is of no rmal overall caliber. Soft tissues: No paravertebral masses or hematomas. Visualized posteromedial lungs appear clear. IMPRESSION: There is a new compression fracture at T7 not present 01/10/17. Previously present mild s uperior endplate impaction fracture and near vertebra plana compression fracture at T4 and T5, respec tively, have not changed. Additional areas of mild osteoporotic superior endplate impaction fracture s are stable over time more inferiorly at T11 and T12. Dictated by: Aron Herbert M.D. on 03/28/2017 at 13:19 Approved by: Aron Herbert M.D. on 03/28/2017 at 13:32
[2017-03-28 13:59] LABS: TROPONIN T < 0.010 ug/L (0.0-0.011)
[2017-03-28] MEDS ORDERED: OXYC1TAB24 PO (14:23)
[2017-04-10] MEDS ORDERED: OXYC-466 PO (17:22)
[2017-04-11] MEDS ORDERED: LORA0.5T PO (07:01)
[2017-04-11] MEDS ORDERED: APIX5TAB PO (07:01)
[2017-04-11] MEDS ORDERED: METO-272 PO (08:44)
[2017-05-09] MEDS ORDERED: OXYC1TAB24 PO (13:11)
== END 2017-03-28 14:37 | disposition home or self-care (01) ==
LOC: SED 10:59
DX: S22.060A Wedge compression fracture of T7-T8 vertebra, initial encounter for closed fracture (principal); W18.30XA Fall on same level, unspecified, initial encounter; Y93.89 Activity, other specified; Y92.9 Unspecified place or not applicable; Y99.8 Other external cause status; J44.9 Chronic obstructive pulmonary disease, unspecified; E78.5 Hyperlipidemia, unspecified; F17.200 Nicotine dependence, unspecified, uncomplicated

== ENCOUNTER 2017-06-19 13:07 | Emergency (ER) | payer MEDICARE ==
[~2017-06-19] VITALS: Ht 175.3 cm; Wt 71.4 kg
[~2017-06-19 13:07] MED LIST changes: -ATRV10T PO; -BUPR100T8 PO; -HYDR-4003 PO; -IPRA3AMP IH; -LAMO100T2 PO; -LISI-610 PO; -METO-272 PO; +OXYC1TAB24 PO; -PANT40TA3 PO; -PRAV40TA PO; -QUET200T PO; -TRAZ-115 PO
[2017-06-19 13:25] VITALS: BP 119/69; PULSE 73; RESP 16; O2SAT 91
--- NOTE | 2017-06-19 14:12 | ED.REPORT ---
HPI-General Illness Date of Service Jun 19, 2017 ED Provider: Elizabeth Lara MD Patient is a 71 year old male with a hx of Melanoma with mets, COPD, and aflutter who presents to the ED complaining of back pain onset 3-4 days ago. He describes the pain as being "from the neck down to the butt" and constant. Associated symptoms include diarrhea and mild abdominal pain. He denies bowel or bladder incontinence, numbness, focal weakness, SOB, productive cough, or any other symptoms. Patient was seen in the department almost 3 months ago for a thoracic compression fracture. His PCP recently increased his dose oxycodone to 10mg but he reports he has still been taking 5mg every 3-4 hours. He is on 2.5 L of O2 at home. Nursing Notes Stated Complaint: ABD PAIN,COPD,NAUSEA,DIARRHEA Chief Complaint: Male Abdominal Pain Nursing Notes Reviewed: Yes Allergies: Coded Allergies: No Known Drug Allergies (Verified Allergy, Unknown, 06/19/17) Scheduled Apixaban (Eliquis) 5 Mg Tablet 2.5 MG PO DAILY Fluoxetine (Fluoxetine) 20 Mg Capsule 20 MG PO DAILY Prednisone (PredniSONE) 5 Mg Tab 10 MG PO BID Scheduled PRN oxyCODONE-Acetaminophen 5-325 mg (oxyCODONE-Acetaminophen 5-325 mg) 1 Each Tablet 1 TAB PO Q4H PRN PRN For Pain General Time Seen by MD: 14:07 Chief Complaint Back pain Hx Obtained From: Patient, Other family... Arrived By: Walk-in Sudden in Onset?: Yes Onset Occurred: 3 days ago Symptom Duration: Since onset Location: : Back Quality: Painful Severity: Current: Severe Severity: Maximum: Severe Recent Healthcare: Recent doctor visit Past Medical History Past Medical History Metastatic melanoma to the lung, kidneys COPD History of sarcoidosis Chronic glucocorticoid therapy Osteoporosis Dyslipidemia Atrial flutter asthma depression anxiety Past Surgical History Lung biospy Hemmorrhoid times 2 removal Reports: Cataract surgery Family History Mother age 93 alive and healthy Father 53 esophageal cancer he was a smoker 2 sisters one at 55 of breast cancer One brother alive and healthy Smoking History Current Every Day Smoker Social History etoh nightly previous Suicide attempt Other Social History: Good social support, Local resident Occupation lives by self, 1 story house friends will help him 02/27/2017 currently significant social issues with his children Ambulatory Status Independent Review of Systems Full Review of Systems Respiratory: Denies: Prod cough, green, Shortness of breath GI: Reports: Abdominal pain, Diarrhea Male: Denies Incontinence Musculoskeletal: Reports: Back pain Neurologic: Denies: Bladder dysfunction, Bowel dysfunction, Focal weakness, Numbness Complete sys rev & neg: except as marked. Physical Exam Vital Signs Vital Signs Date Time Temp Pulse Resp B/P Pulse Ox O2 Delivery O2 Flow Rate FiO2 06/19/17 13:25 36.6 73 16 119/69 91 Room Air Initial VS: Reviewed, Vital signs normal Head / Eyes: Atraumatic, Normocephalic Neck: Supple, Full range of motion Skin: Warm, Dry Neurologic: Alert, Oriented, Nonfocal Psychiatric: Mood/affect normal, Behavior normal, Normal thought content General/Constitutional: Awake, Alert more cachectic than previously Respiratory / Chest: Atraumatic, Breath sounds = bilat, No respiratory distress small wheezes Cardiovascular: Heart rate NL, Regular rhythm, Heart sounds NL Abdomen: Atraumatic, No guarding, No rebound abdomen mildly distended with ascites at baseline. Moderately tender. Back: No midline vertebral tend No point tenderness, no rashes or skin changes, describes entire back as painful to the touch Interpretation & Diagnostics Lab Results Interpretation Result Diagram: 06/19/17 1438 06/19/17 1438 Test 06/19/17 14:38 White Blood Count 8.9th/mm3 (3.8-10.1) Red Blood Count 4.50mil/mm3 (4.40-5.80) Hemoglobin 14.1g/dL (13.8-17.2) Hematocrit 43.6% (41.0-50.0) Mean Corpuscular Volume 96.9fL (81-100) Mean Corpuscular Hemoglobin 31.3pg (27.0-35.0) Mean Corpuscular Hemoglobin Concent 32.3% (32.0-37.0) Red Cell Distribution Width 14.9% (12.3-15.4) Platelet Count 257bil/L (150-400) Neutrophils (%) (Auto) 82.5% (40-74) Lymphocytes (%) (Auto) 8.4% (14-46) Monocytes (%) (Auto) 7.5% (4-12) Eosinophils (%) (Auto) 0.3% (0-5) Basophils (%) (Auto) 0.3% (0-3) Sodium Level 142mEq/L (134-144) Potassium Level 3.7mEq/L (3.5-5.2) Chloride Level 101mEq/L (97-108) Carbon Dioxide Level 28mmol/L (18-29) Blood Urea Nitrogen 16mg/dL (8-27) Creatinine 0.52mg/dL (0.76-1.27) Estimat Glomerular Filtration Rate 166mL/min (>59) Glucose Level 114mg/dL (60-99) Lactic Acid Level 1.4mmol/L (0.4-2.0) Calcium Level 9.1mg/dL (8.5-10.1) Total Bilirubin 0.6mg/dL (0.0-1.2) Aspartate Amino Transf (AST/SGOT) 45U/L (0-50) Alanine Aminotransferase (ALT/SGPT) 31U/L (0-44) Alkaline Phosphatase 118U/L (25-160) Total Protein 6.1g/dL (6.4-8.4) Albumin 3.7g/dL (3.4-5.0) Lipase 36U/L (13-60) ECG Interpretation ECG Interpretation: Sinus rate 74 Probable left atrial enlargement RBBB Time: 14:09 Interpreted by: ED physician Discharge & Departure Shift Change Sign-Out Patient Care Transferred: Yes Discussed Complaint(s): Yes Laboratory Evaluation: Ordered, not yet done Imaging Studies: Ordered, not yet done Transfer of care to Dr. Ellison at 1500. No results returned yet. Primary Impression: Back pain Back pain location: back pain in unspecified location Chronicity: unspecified Back pain laterality: unspecified Qualified Code: M54.9 - Dorsalgia, unspecified Additional Impression: Metastatic melanoma Discharge Condition All VS Reviewed: Yes Condition: Stable Referrals: Diane Aldana MD (PCP) Care Transferred to: Dr. Ellison Care Transferred at: 15:00 Scribe Attestation Portions of this note were transcribed by Reyna Joy. I, Dr. Lara personally performed the history, physical exam and medical decision-making; I reviewed and confirmed the accuracy of the information in the transcribed note. Signed: Radha Julio, 06/19/17 copies to: Diane Aldana MD, Shawna L MD Jun 19, 2017 14:12 REYNA JOY Jun 19, 2017 14:25
[2017-06-19] MEDS ORDERED: Ketorolac 15 mg/mL Inj IVPUSH ONE (14:25)
[2017-06-19] MEDS ORDERED: HYDROmorphone 1 mg/mL Inj IM ONE (14:25)
[2017-06-19] MEDS ORDERED: HYDROmorphone 1 mg/mL Inj IM PRN (14:25)
[2017-06-19 14:49] LABS: BASOPHILS % (AUTO) 0.3 % (0-3); EOSINOPHILS % (AUTO) 0.3 % (0-5); MONOCYTES % (AUTO) 7.5 % (4-12); Mean Corpuscular Hemoglobin 31.3 pg (27.0-35.0); Mean Corpuscular Volume 96.9 fL (81-100); NEUTROPHILS % (AUTO) 82.5 % (40-74); Platelet Count 257 bil/L (150-400)
--- NOTE | 2017-06-19 15:34 | DRSVH ---
PROCEDURE: X-RAY THORACIC SPINE, 2 VIEWS INDICATIONS: pain, metastatic melanoma TECHNIQUE: 3 views of the thoracic spine were acquired. COMPARISON: [facility], CT, CT THORACIC SPINE WO CON, 03/28/2017, 12:47. FINDINGS: Bones: On the lateral views, the cervicothoracic junction is not well visualized, but the alignment t hrough this region appears to be within normal limits. The bone mineralization is diffusely decrease d in which does result in difficulty evaluating the thoracic vertebral bodies. The compression defor mities noted previously at the levels of T4, T5, and T7 do not appear to have significantly changed. There also appears to be a compression deformity involving the L1 vertebral body. No new compression deformities are appreciated. No displaced fractures are identified. Moderate multilevel degenerati ve changes of the thoracic spine are present. Soft tissues: The imaged overlying soft tissues of the chest are within normal limits. IMPRESSION: 1. No new compression deformities are evident. If there is high clinical concern for an acute compr ession fracture, please consider MRI or CT for further evaluation. 2. Moderate multilevel degenerative changes of the thoracic spine. Dictated by: Rod Sheriff M.D. on 06/19/2017 at 14:30 Approved by: Rod Sheriff M.D. on 06/19/2017 at 14:32
--- NOTE | 2017-06-19 15:36 | DRSVH ---
PROCEDURE: X-RAY CHEST ONE VIEW, PORTABLE ([id number]) INDICATIONS: pain, metastatic melanoma TECHNIQUE: One view of the chest was acquired. COMPARISON: [facility], CT, CT CHEST ABD PELVIS W CON, 04/03/2017, 11:19. [facility], CR, XR CHEST 1VW (PORTABLE), 03/28/2017, 11:47. FINDINGS: Surgical changes and devices: None. Lungs and pleura: Consolidation at the left lung base is similar to previous examinations, particular ly involving the chest CT dated 04/03/17. No new areas of consolidation are evident. There probably i s a left-sided pleural effusion. There is no pneumothorax. Mediastinum: Mediastinal contours appear normal. The heart is enlarged. Bones and chest wall: No suspicious bony lesions. Severe degenerative changes of the right shoulder are present. Overlying soft tissues appear unremarkable. IMPRESSION: Left basilar consolidation and is similar to the prior chest CT, which may be chronic in nature. However, superimposed pneumonia is difficult to exclude and clinical correlation is recommen ded. Dictated by: Rod Sheriff M.D. on 06/19/2017 at 14:33 Approved by: Rod Sheriff M.D. on 06/19/2017 at 14:34
[2017-06-19 15:59] VITALS: BP 128/90; PULSE 83; RESP 24; O2SAT 100
[2017-06-19] MEDS ORDERED: HYDROmorphone Inj 2 MG in 0.9% Sodium Chloride 100 ML IV ONE (18:00)
[2017-06-19] MEDS ORDERED: HYDROmorphone 1 mg/mL Inj IVPUSH ONE (18:10)
[2017-06-19 18:17] VITALS: BP 99/58; PULSE 84; RESP 20; O2SAT 95
[2017-06-20] MEDS ORDERED: OXYC10TA69 PO (15:40)
== END 2017-06-19 18:31 | disposition home or self-care (01) ==
LOC: SED 13:07
DX: M54.9 Dorsalgia, unspecified (principal); C79.2 Secondary malignant neoplasm of skin; C80.1 Malignant (primary) neoplasm, unspecified; J44.9 Chronic obstructive pulmonary disease, unspecified; F41.8 Other specified anxiety disorders; F17.200 Nicotine dependence, unspecified, uncomplicated
CPT/HCPCS: 36415; 71010; 72070; 80053; 83605; 83690; 85025; 87040; 93005; 96372; 96374; 96375; 99285; J1170; J1885

== ENCOUNTER 2017-06-20 14:27 | Inpatient (IN) | payer MEDICARE ==
[~2017-06-20] VITALS: Ht 177.8 cm; Wt 68.1 kg
[2017-06-20 14:37] VITALS: BP 139/82; PULSE 72; RESP 24; O2SAT 99
[2017-06-20] MEDS ORDERED: Ondansetron 2 mg/mL 2 mL Inj IVPUSH ONE (15:00)
--- NOTE | 2017-06-20 15:06 | ED.REPORT ---
HPI-General Illness Date of Service Jun 20, 2017 ED Provider: Madi Campa MD History of Present Illness: Sent directly from Oncology clinic by Dr. Arroyo w/request for admission The patient is a 71 year old male with a history of metastatic melanoma to the lung and kidneys, COPD, sarcoidosis and atrial flutter presents to the ED with severe back pain that began earlier this afternoon. His reports generalized intractable pain with the worst pain beginning in his back, radiating to his anus. He also experienced sudden onset numbness in his lower extremities just prior to arrival. Additional symptoms include severe diarrhea and urinary retention. Laughter reportedly exacerbates his pain. His last dose of Oxycodone was at 1400 this afternoon. denies any recent injuries or fall. Patient was seen in the ED on 06/19 for back pain and was discharged in good condition following a reassuring workup. He was sent to the ED today from Dr. Holbrook's office for increasingly worse pain. Patient denies fever, chills, nausea, or vomiting. Nursing Notes Stated Complaint: PAIN ALL OVER CANCER PATIENT Chief Complaint: General Complaint Nursing Notes Reviewed: Yes Allergies: Coded Allergies: No Known Drug Allergies (Verified Allergy, Unknown, 06/19/17) Scheduled Fluoxetine (Fluoxetine) 20 Mg Capsule 20 MG PO DAILY Oxycodone ER (Oxycontin) 10 Mg Tab.er.12h 10 MG PO BID Prednisone (PredniSONE) 5 Mg Tab 10 MG PO BID Scheduled PRN oxyCODONE-Acetaminophen 5-325 mg (oxyCODONE-Acetaminophen 5-325 mg) 1 Each Tablet 1 TAB PO Q4H PRN PRN For Pain General Time Seen by MD: 14:57 Chief Complaint Other (Generalized Pain) Hx Obtained From: Patient, Spouse Arrived By: Walk-in Sudden in Onset?: No Onset Occurred: 1 - 4 hours ago Symptom Duration: Since onset Quality: Painful (Generalized Pain) Radiation: : Abdomen: Back Severity: Current: Severe Severity: Maximum: Severe Associated with: Denies: Fever Pertinent Negative: Pt denies other symptoms Recent Healthcare: No recent hospitalization, Recent doctor visit Past Medical History Past Medical History Notes: Seen yesterday (06/19/2017) in the ED for back pain Past Medical History Metastatic melanoma to the lung, kidneys COPD History of sarcoidosis Chronic glucocorticoid therapy Osteoporosis Dyslipidemia Atrial flutter/fibrillation (on Eliquis as fo 06/20/17) asthma depression anxiety Past Surgical History Lung biospy Hemmorrhoid times 2 removal Reports: Cataract surgery Family History Mother age 93 alive and healthy Father 53 esophageal cancer he was a smoker 2 sisters one at 55 of breast cancer One brother alive and healthy Smoking History Current Every Day Smoker Social History EtOH use nightly Previous Suicide attempt Other Social History: Good social support, Local resident Occupation lives by self, 1 story house friends will help him 02/27/2017 currently significant social issues with his children Ambulatory Status Independent Review of Systems Full Review of Systems Constitutional: Denies: Chills, Fever GI: Reports: Diarrhea, Denies: Nausea, Vomiting Male: Reports Urination decreased Musculoskeletal: Reports: Back pain, Extremity pain, Joint pain, Myalgia Neurologic: Reports: Numbness Complete sys rev & neg: except as marked. Physical Exam Vital Signs Vital Signs Date Time Temp Pulse Resp B/P Pulse Ox O2 Delivery O2 Flow Rate FiO2 06/20/17 15:46 71 20 145/81 100 Nasal Cannula 2 06/20/17 14:37 36.2 72 24 139/82 99 Room Air Initial VS: Reviewed Head / Eyes: Atraumatic, Normocephalic, PERRL Neck: Supple, Non-tender, Full range of motion Extremities: Vascular intact, Neuro intact, No swelling, No tenderness Skin: Warm, Dry, No cyanosis Psychiatric: Mood/affect normal, Behavior normal, Normal thought content General/Constitutional: Awake, Alert Distress / Hydration: Positive: Distress severe Appearance / Presentation: Positive: Uncomfortable GENERAL: Patient is unable to sit still secondary to pain ENT: Atraumatic, Airway patent Mouth: Positive: Mucous membranes dry Respiratory / Chest: Atraumatic, Breath sounds = bilat Diminished Breath Sounds: Positive: Decreased bilateral Cardiovascular: Heart rate NL, Regular rhythm, Heart sounds NL Heart Rate / Rhythm: Negative: Tachycardia Abdomen: Atraumatic, Soft, Non-tender, No guarding, No rebound Neurologic: Oriented X3, Speech NL, No motor deficits, No sensory deficits, CN II - XII intact, Reflexes equal bilat NEURO: Patient endorses numbness in his bilaterally extremities; however, no focal neurological deficit is identified Interpretation & Diagnostics Lab Results Interpretation Result Diagram: 06/20/17 1515 06/20/17 1515 Test 06/20/17 15:15 06/20/17 17:00 06/20/17 17:30 06/20/17 17:43 White Blood Count 10.1th/mm3 (3.8-10.1) Red Blood Count 4.56mil/mm3 (4.40-5.80) Hemoglobin 14.4g/dL (13.8-17.2) Hematocrit 43.9% (41.0-50.0) Mean Corpuscular Volume 96.3fL (81-100) Mean Corpuscular Hemoglobin 31.6pg (27.0-35.0) Mean Corpuscular Hemoglobin Concent 32.8% (32.0-37.0) Red Cell Distribution Width 14.8% (12.3-15.4) Platelet Count 279bil/L (150-400) Neutrophils (%) (Auto) 86.4% (40-74) Lymphocytes (%) (Auto) 6.3% (14-46) Monocytes (%) (Auto) 6.3% (4-12) Eosinophils (%) (Auto) 0.1% (0-5) Basophils (%) (Auto) 0.2% (0-3) Sodium Level 138mEq/L (134-144) Potassium Level 3.9mEq/L (3.5-5.2) Chloride Level 97mEq/L (97-108) Carbon Dioxide Level 27mmol/L (18-29) Blood Urea Nitrogen 17mg/dL (8-27) Creatinine 0.53mg/dL (0.76-1.27) Estimat Glomerular Filtration Rate 162mL/min (>59) Glucose Level 111mg/dL (60-99) Lactic Acid Level 1.9mmol/L (0.4-2.0) Calcium Level 9.4mg/dL (8.5-10.1) Total Bilirubin 0.9mg/dL (0.0-1.2) Aspartate Amino Transf (AST/SGOT) 34U/L (0-50) Alanine Aminotransferase (ALT/SGPT) 29U/L (0-44) Alkaline Phosphatase 124U/L (25-160) Total Protein 6.4g/dL (6.4-8.4) Albumin 3.8g/dL (3.4-5.0) Lipase 46U/L (13-60) Urine Color Yellow (YELLOW) Urine Appearance Clear (CLEAR,HAZY) Urine pH 5.5 (5.0-8.0) Urine Specific [place] <1.005 (1.003-1.035) Urine Protein Negativemg/dL (NEG,TRACE) Urine Glucose (UA) Negativemg/dL (NEGATIVE) Urine Ketones Tracemg/dL (NEGATIVE) Urine Occult Blood Negative (NEGATIVE) Urine Nitrite Negative (NEGATIVE) Urine Bilirubin Negative (NEGATIVE) Urine Urobilinogen Normalmg/dL (NORMAL) Urine Leukocyte Esterase Negative (NEGATIVE) Urine RBC 0-2/hpf (0-2) Urine WBC 0-5/hpf (0-5) Urine Epithelial Cells Occasional/hpf (NONE-MOD) Urine Crystals None seen (NONE SEEN) Urine Bacteria None/hpf (NONE-FEW) Urine Hyaline Casts None/lpf (NONE) Urine Granular Casts None seen (NONE SEEN) Urine Waxy Casts None seen (NONE SEEN) Urine Red Blood Cell Casts None seen (NONE SEEN) Urine White Blood Cell Casts None seen (NONE SEEN) Urine Mucus None seen (None Seen) Urine Trichomonas None seen (NONE SEEN) Urine Yeast None (NONE SEEN) Urinalysis Comment None Urine Culture Reflexed Not indicated Troponin T < 0.010ug/L (0.0-0.011) Hold Urine Received (Received) Lab Results Interpretation: CBC normal CMP normal Stool studies ordered ECG Interpretation ECG Interpretation: Normal sinus rhythm Rate 64 bpm Right bundle branch block Time: 15:54 Interpreted by: ED physician Normal ECG Interpretation: No change from prior ECGs (06/19/17) CT Abd / Pelvis Interpretation IMPRESSION: No changes in the CT scan of the thorax abdomen and pelvis since 04/03/17 are further decrease in the retrocaval lymph node or soft tissue mass and a new compression of the T10 vertebral body. Possible minimal increase in small left pleural effusion. The Multiple wedging deformities of thoracic vertebrae. Dictated by: Michael Allen M.D. on 06/20/2017 at 17:31 Study type: Abdominal CT IV contrast, Abdom CT oral contrast Re-Eval/Medical Decision Med Decision/Clinical Course This is a 71-year-old male sent from the [facility] by Dr. Arroyo for admission and evaluation. As the patient with melanoma on chemotherapy been doing quite well, but now has severe back pain over the past week. Denies trauma, was seen yesterday in the emergency department, was still having terrible pain despite increasing his oxycodone. Additionally,'s concern for dehydration of the patient's had terrible diarrhea for the past 5 days, decreased intake, and has had no urinary output for the past 24-48 hours. Patient denies any weakness in the legs that is new. he appears in severe pain on arrival, an IV is placed and received titrated aliquots of Dilaudid with marked improvement ultimately. Do not appreciate focal deficits on exam. Exam is soft nontender. Blood work was obtained and remains normal., At this point given his history, intractable pain CT imaging was pursued at the chest abdomen and pelvis reveals a new T10 compression fracture. This is a patient on chronic steroids. There is no retropulsion or indication of any need for surgical management. She did require multiple titrated doses of Dilaudid for pain control. He is started on calcitonin intranasally for the compression fracture. Repeat blood work was normal. He is receiving IV fluids given the level of dehydration. Stool studies have been ordered but is not had diarrhea here yet. The patient is being admitted for continued pain control and management. Case has been Discussed with the hospitalist Source of Hx: Old records Time of Eval: 15:44 Re-Evaluation/Progress Note: Bladder scan - Bladder is empty. Patient is currently complaining of chest tightness. EKG is ordered. Time of Eval: 16:16 Patient Status: Pain improved Re-Evaluation/Progress Note: Pain has significantly improved following Dilaudid. Questions about the plan to obtain a CT and admit are addressed. Time of Eval: 17:50 Patient Status: Pain improved Re-Evaluation/Progress Note: Pt informed of his CT results. All questions about the intended treatment plan are addressed. The patient understands and agrees with the current plan. Consultation : Referral / Consult Name: Jim See DO Consulted With: Hospitalist Call Returned at: 18:19 Assistant Counsel: Will see patient, Agrees with eval, Agrees with plan, Accepts admit Note: Discussed patient condition. All questions are addressed. Differential Diagnosis: Positive: Fracture, Negative: Allergies, Drug dependence, Neutropenia, Pneumonia Counseled Regarding: Diagnosis, Lab results, Need for admission Discharge & Departure Primary Impression: Compression fracture of thoracic vertebra Encounter type: initial encounter Fracture type: closed Qualified Code: S22.000A - Wedge compression fracture of unspecified thoracic vertebra, initial encounter for closed fracture Additional Impressions: Diarrhea Diarrhea type: unspecified type Qualified Code: R19.7 - Diarrhea, unspecified Dehydration Metastatic melanoma Intractable back pain Disposition: ADMITTED TO HOSPITAL Discharge Condition All VS Reviewed: Yes Condition: Improved Referrals: Diane Aldana MD (PCP) Scribe Attestation Portions of this note were transcribed by Angela Myrick. I, Dr. Campa, personally performed the history, physical exam and medical decision-making; I reviewed and confirmed the accuracy of the information in the transcribed note. Signed by: Angela Myrick, 06/20/17. copies to: Nilton Arroyo MD; Diane Aldana MD, Matthew F MD Jun 20, 2017 15:06 ANGELA MYRICK Jun 20, 2017 15:14
[2017-06-20] MEDS ORDERED: 0.9% Sodium Chloride 1,000 ML IV ONE (15:10)
[2017-06-20] MEDS: HYDROmorphone 0.5 mg/0.5 mL iSecure Syringe IVPUSH PRN ×3 (15:15→18:32)
[2017-06-20 15:31] LABS: BASOPHILS % (AUTO) 0.2 % (0-3); EOSINOPHILS % (AUTO) 0.1 % (0-5); MONOCYTES % (AUTO) 6.3 % (4-12); Mean Corpuscular Hemoglobin 31.6 pg (27.0-35.0); Mean Corpuscular Volume 96.3 fL (81-100); NEUTROPHILS % (AUTO) 86.4 % (40-74); Platelet Count 279 bil/L (150-400)
[2017-06-20] MEDS ORDERED: Iohexol 300 mg/mL 30 mL Inj PO ONE (15:35)
[2017-06-20] MEDS ORDERED: OXYC10TA69 PO (15:40)
[2017-06-20 15:46] VITALS: BP 145/81; PULSE 71; RESP 20; O2SAT 100
[2017-06-20 17:20] LABS: APPEARANCE,URINE CLEAR (CLEAR,HAZY); COLOR,URINE YELLOW (YELLOW); PH,URINE 5.5 (5.0-8.0)
[2017-06-20 17:21] LABS: OCCULT BLOOD,URINE NEGATIVE (NEGATIVE); UROBILINOGEN,URINE NORMAL (NORMAL)
--- NOTE | 2017-06-20 17:47 | DRSVH ---
PROCEDURE: CT CHEST, ABDOMEN AND PELVIS [facility] CONTRAST ([id number]) INDICATIONS: severe back pain, melanoma TECHNIQUE: After the administration of oral and intravenous contrast, 5 mm thick sections acquired from the lung apices to the symphysis. 5 mm coronal and sagittal reformats were performed, with additional 7 mm c oronal MIP reformats through the lungs. For radiation dose reduction, the following was used: autom ated exposure control, adjustment of mA and/or kV according to patient size. COMPARISON: [facility], CT, CT CHEST ABD PELVIS W CON, 04/03/2017, 11:19. FINDINGS: Image quality: Good CHEST: Lungs and pleura: There are severe COPD changes in the lungs with bilateral left greater than right scarring changes and pleural thickening. No acute airspace opacities. The small left pleural effusio n is unchanged to minimally larger in size. Mediastinum: Heart size is normal. No pericardial effusion. No mediastinal or hilar adenopathy by size criteria. Thoracic aorta and central pulmonary arteries are normal in size. Esophagus is mars l in caliber. No hiatal hernia. Chest wall: No axillary or supraclavicular adenopathy by size criteria. Thyroid gland is a 17 mm no dule in the left lobe, unchanged. ABDOMEN: Solid organs: Liver and spleen are normal in size and enhancement. Gallbladder is within normal senior its. Biliary system is non dilated. Pancreas enhances normally. No adrenal nodules. Kidneys demon strate normal size and enhancement, without hydronephrosis. Peritoneum and bowel: Bowel loops demonstrate normal wall thickness and caliber. No free fluid or a ir. Colonic diverticula without inflammation are present. Nodes and vessels: No retroperitoneal or mesenteric adenopathy by size criteria. And retrocaval lym ph node mentioned on the previous recent CT has decreased in size further. Aorta and inferior vena ca va are normal in size. Miscellaneous: No ventral hernias. PELVIS: Genitourinary: Bladder wall thickness is normal. Prostate is not enlarged. Miscellaneous: No inguinal hernias or adenopathy. Bones: Severe degenerative changes in the right shoulder joint are present. Old left rib fractures ar e present. Multiple compression fractures of vertebrae are present but unchanged since 04/03/17. There is a new fracture of T10. No vertebral body compression fractures. IMPRESSION: No changes in the CT scan of the thorax abdomen and pelvis since 04/03/17 are further decre ase in the retrocaval lymph node or soft tissue mass and a new compression of the T10 vertebral body. Possible minimal increase in small left pleural effusion. The Multiple wedging deformities of thoracic vertebrae. Dictated by: Michael Allen M.D. on 06/20/2017 at 17:31 Approved by: Michael Allen M.D. on 06/20/2017 at 17:45
[2017-06-20] MEDS ORDERED: Calcitonin 200 IU 3.7 mL Nasal Spray NASAL ONE (18:05)
[2017-06-20 18:35] VITALS: BP 147/88; PULSE 75; RESP 20; O2SAT 97
[2017-06-20] MEDS ORDERED: Ondansetron 2 mg/mL 2 mL Inj IVPUSH PRN ×2 (18:35→19:45)
[2017-06-20] MEDS ORDERED: HYDROmorphone 0.5 mg/0.5 mL iSecure Syringe IVPUSH PRN ×2 (18:35→20:20)
[2017-06-20] MEDS ORDERED: Alum-Mag Hydrox-Simeth 30 mL Suspension PO PRN ×2 (18:35→19:45)
[2017-06-20 18:59] LABS: APPEARANCE,URINE CLEAR (CLEAR,HAZY); COLOR,URINE YELLOW (YELLOW); OCCULT BLOOD,URINE NEGATIVE (NEGATIVE); UROBILINOGEN,URINE NORMAL (NORMAL)
[2017-06-20] MEDS ORDERED: Polyethylene Glycol (PEG) 17 Gm Powder PO PRN (19:45)
--- NOTE | 2017-06-20 19:54 | PCM.HPMED ---
Subjective Date of Service Jun 20, 2017 Primary Provider: Admitting Physician: Efrain Haines MD Primary Care Physician: Diane Aldana MD Attending Physician: Efrain Haines MD Admit Status: From the Emergency Department Chief Complaint: Back pain, nausea History of Present Illness: Julián Mckeon is a pleasant but unfortunate 71-year-old male with a past medical history of metastatic melanoma to his lungs and kidneys, COPD, atrial flutter, and osteoporosis with multiple compression fractures who presented to the ED with complaints of severe back pain that began 06/19. He normally has intractable pain due to his multiple compression fractures, but this pain is more severe and is radiating to his anus. He did experience some numbness to his lower extremities, which has resolved. He does report some diarrhea and urinary retention. Any movement makes it worse, and his pain regimen was not helping. He denies any recent injuries or fall. Of note, he was seen in the ED yesterday 06/19 for this back pain and was discharged in good condition after a reassuring workup. He was sent over to the ED today by Dr. Arroyo, as he was in excruciating pain in the clinic. In the ED, he received some fluids as well as titrated IV doses of Dilaudid and he is now more comfortable. Review of Systems: Comprehensive review of systems was conducted with the patient and found to be negative except as noted above in HPI. Allergies Coded Allergies: No Known Drug Allergies (Verified Allergy, Unknown, 06/19/17) Home Medications Scheduled Fluoxetine (Fluoxetine) 20 Mg Capsule 20 MG PO DAILY Oxycodone ER (Oxycontin) 10 Mg Tab.er.12h 10 MG PO BID Prednisone (PredniSONE) 5 Mg Tab 10 MG PO BID Scheduled PRN oxyCODONE-Acetaminophen 5-325 mg (oxyCODONE-Acetaminophen 5-325 mg) 1 Each Tablet 1 TAB PO Q4H PRN PRN For Pain PMH Metastatic melanoma to the lung, kidneys COPD on 1-2 L at baseline History of sarcoidosis Chronic glucocorticoid therapy Osteoporosis with multiple compression fractures Dyslipidemia Atrial flutter/fibrillation asthma depression anxiety Surgical History Lung biopsy Hemmorrhoidetomy x2 Cataract surgery Family History Mother age 93 alive and healthy Father 53 esophageal cancer he was a smoker 2 sisters one at 55 of breast cancer One brother alive and healthy Social History Hx Alcohol Use: Yes Hx Substance Use: No Hx Tobacco Use: Yes Smoking Status: Current Every Day Smoker Living Arrangement: Alone Exam Vital Signs Vital Sign - Last Date Time Temp Pulse Resp B/P Pulse Ox O2 Delivery O2 Flow Rate FiO2 06/20/17 18:35 36.5 75 20 147/88 97 Nasal Cannula 2 Exam General: No acute distress, well-developed, well-nourished, appropriately interactive and eating his dinner and watching the [employer] game HEENT: Normocephalic, atraumatic. External ears without defect. Pupils equal, round, and reactive to light and accommodation. Membranes dry. Neck: Supple with full range of motion. No jugular venous distension. No bruits. No lymphadenopathy or thyromegaly. Cardiovascular: Regular rate and rhythm with no murmurs, rubs, or gallops appreciated Pulmonary: Clear to auscultation bilaterally with no crackles, wheezes, or rhonchi. Normal respiratory effort with no use of accessory muscles. Abdomen: Bowel tones present. Soft, nontender, nondistended. No hepatosplenomegaly or masses appreciated. MSK: He has tenderness to palpation in his lower thoracic spine, but no signs of trauma. He was able to sit himself upright in bed without too much distress. Extremities: No clubbing, cyanosis, edema, or lymphadenopathy appreciated. Skin: Normal temperature, turgor, and texture; no rash, ulcers, or subcutaneous nodules appreciated. Neurological: Cranial nerves grossly intact. Normal muscle strength, tone, and bulk. No sensory deficits. Psychiatric: Normal mood and affect. Alert and oriented to person, place, and time. Lab and Diagnostics Result Diagram: 06/20/17 1515 06/20/17 1515 X-Rays, CTs and MRIs CT chest, abdomen, pelvis 06/20/2017 IMPRESSION: No changes in the CT scan of the thorax abdomen and pelvis since 04/03/17 are further decrease in the retrocaval lymph node or soft tissue mass and a new compression of the T10 vertebral body. Possible minimal increase in small left pleural effusion. The Multiple wedging deformities of thoracic vertebrae. Dictated by: Michael Allen M.D. on 06/20/2017 at 17:31 12-lead ECG ECG Interpretation: Normal sinus rhythm Rate 64 bpm Right bundle branch block Time: 15:54 Interpreted by: ED physician Assessment & Plan Julián Mckeon is a pleasant but unfortunate 71-year-old male with a past medical history of metastatic melanoma to his lungs and kidneys, COPD, atrial flutter, and osteoporosis with multiple compression fractures who presented to the ED with complaints of severe back pain that began 06/19. CT revealed a new compression fracture at T10. Intractable back pain, present on admission. Acute. Ongoing. - Likely due to new compression fracture at T10 - Patient has osteoporosis and malignant melanoma with multiple compression fractures in his back - He required multiple Dilaudid IV doses to get comfortable - CAREER AND GUIDANCE COUNSELOR pump ordered overnight; This will give us the opportunity to get a baseline of his usage and adjust his outpatient medication accordingly - Continue his home pain regimen for breakthrough pain: Oxycodone ER 10 mg twice a day Oxycodone 5-325 one tab every 4 hours when necessary pain - Consider discontinuing CAREER AND GUIDANCE COUNSELOR pump in the morning and dosing his oral pain medications according to his usage - Continuous telemetry, pulse ox monitoring COPD with baseline 1-2 L at home, present on admission. Chronic. - Likely due to long-term smoking history, asthma, metastases in his lungs - Patient is on 1-2 L at home at baseline, but does not always use it - He has stopped most of his medications voluntarily; will not add while he is here - Continue oxygen as necessary to keep sats 88-92% - Continue prednisone 10 mg twice daily Malignant melanoma with metastases to the lungs and kidneys, present on admission. Chronic. - Followed by Dr. Arroyo of [facility] - CT showed no lesions at this point Osteoporosis, present on admission. Chronic. - Likely due to his metastatic melanoma - Patient has multiple compression fractures, newest one in T10 - Patient discontinued most of his medications; we discussed medication options , but he did not want to start any at this time Depression, present on admission. Chronic. - Continue fluoxetine 20 mg daily History of atrial flutter/fibrillation, present on admission. Chronic. - Patient in normal sinus rhythm at this time; stopped Eliquis voluntarily - Monitor on telemetry PRN Medications - Acetaminophen as needed for mild pain/fever/headache - Bowel regimen as needed - Antiemetic as needed Patient status: Patient is admitted under observation status with expected length of stay less than 2 midnights due to severity of presenting symptoms, risk of adverse event, and complexity of treatment plan. VTE Prophylaxis: Sub-Q Enoxaparin Resuscitation Status: DNR/DNI:Do Not Resuscitate/Intubate Attending Statement The patient was seen and examined together with Dr. Mcmillan on 06/20 and I agree with the history, exam and plan as outlined in the note above. Rogelio Mcmillan DO Jun 20, 2017 19:54 Efrain Haines MD Jun 21, 2017 01:21
[2017-06-20] MEDS: Dextrose 5% 500 ML IV SCH (20:17)
[2017-06-20] MEDS ORDERED: MetoCLOpramide 5 mg/mL 2 mL Inj IVPUSH PRN (20:20)
[2017-06-20] MEDS ORDERED: oxyCODONE-Acetamin 5-325 mg Tablet PO PRN (20:20)
[2017-06-20] MEDS: HYDROmorphone PCA 0.2 mg/mL 30 mL Inj IV PRN (20:41)
[2017-06-20] MEDS: 0.9% Sodium Chloride 1,000 ML IV SCH (20:42)
[2017-06-20] MEDS: oxyCODONE ER 10 mg ER12 Tablet PO SCH (20:57)
[2017-06-20] MEDS: predniSONE 5 mg Tablet PO SCH (20:57)
[2017-06-20 21:13] VITALS: RESP 16; O2SAT 92
[2017-06-20 23:16] VITALS: RESP 18; O2SAT 94
--- NOTE | 2017-06-20 23:33 | NUR ---
Admit to 1020 Pt arrived to unit just before shift change, tucked in and safety checked by day RN. Care assumed for NOC shift, admission and med rec completed by admitting RN. Pt is alert and fully oriented, stated pain tolerable at arrival, set up with MEDICAL SUPPLY TECHNICIAN for optimal pain management. Pt understands and using appropriately, states pain is finally under control; pt states that he is able to sleep for the first time in several days. O2 via NC at 2-4 L, 2L is baseline; noted with snoring and apnea, pulse oximetry in place, consulted with Md and will continue with MEDICAL SUPPLY TECHNICIAN at normal setting despite age and apnea as pt is opiate tolerant. Tolerated dinner without nausea, reports recent episodes of diarrhea. Tele, IV fluids infusing. Pt oriented to call light, hospital routines, plan of care; agrees to call before getting out of bed, juliane alarm on for safety. Hourly rounding ongoing.
[2017-06-21] VITALS (13 sets, daily range): BP systolic 91–164; BP diastolic 52–91; PULSE 62–83; RESP 16–20; O2SAT 91–98
[2017-06-21] MEDS: 0.9% Sodium Chloride 1,000 ML IV SCH ×2 (06:21→17:13)
[2017-06-21] MEDS: HYDROmorphone PCA 0.2 mg/mL 30 mL Inj IV PRN ×3 (07:47→21:26)
--- NOTE | 2017-06-21 08:24 | PCM.PNMED ---
Subjective Date of Service Jun 21, 2017 Subjective Patient seen and examined. In pain 08/05 . Vitals noted. Exam Vital Signs Vital Sign - Last Date Time Temp Pulse Resp B/P Pulse Ox O2 Delivery O2 Flow Rate FiO2 06/21/17 06:18 16 96 06/21/17 06:07 74 06/21/17 05:00 36.8 111/52 Nasal Cannula 2.50 Intake and Output 06/20/17 06/20/17 06/21/17 Cumulative From/Thru 15:00 23:00 07:00 06/20/17 15:37 - 06/21/17 06:44 Intake Total 999 ml 1129 ml 2128 ml Output Total 225 ml 225 ml Balance 999 ml 904 ml 1903 ml Intake Oral 200 ml 200 ml IV Total 999 ml 929 ml 1928 ml Output Urine Total 225 ml 225 ml Bladder Scan Volume Amount 0 # Bowel Movements 0 0 Exam General: In acute distressgaly. Cardiovascular: Regular rate and rhythm with no murmurs, rubs, or gallops appreciated Pulmonary: Clear to auscultation bilaterally with no crackles, wheezes, or rhonchi. Normal respiratory effort with no use of accessory muscles. Abdomen: Bowel tones present. Soft, nontender, nondistended. No hepatosplenomegaly or masses appreciated. MSK: He has tenderness to palpation in his lower thoracic spine, but no signs of trauma. He was able to sit himself upright in bed without too much distress. Extremities: No clubbing, cyanosis, edema, or lymphadenopathy appreciated. . Lab and Diagnostics Result Diagram: 06/20/17 1515 06/20/17 1515 X-Rays, CTs and MRIs CT chest, abdomen, pelvis 06/20/2017 IMPRESSION: No changes in the CT scan of the thorax abdomen and pelvis since 04/03/17 are further decrease in the retrocaval lymph node or soft tissue mass and a new compression of the T10 vertebral body. Possible minimal increase in small left pleural effusion. The Multiple wedging deformities of thoracic vertebrae. Dictated by: Michael Allen M.D. on 06/20/2017 at 17:31 12-lead ECG ECG Interpretation: Normal sinus rhythm Rate 64 bpm Right bundle branch block Time: 15:54 Interpreted by: ED physician Assessment & Plan Julián Mckeon is a pleasant but unfortunate 71-year-old male with a past medical history of metastatic melanoma to his lungs and kidneys, COPD, atrial flutter, and osteoporosis with multiple compression fractures who presented to the ED with complaints of severe back pain that began 06/19. CT revealed a new compression fracture at T10. Intractable back pain, present on admission. Acute. Ongoing. - Likely due to new compression fracture at T10 - Patient has osteoporosis and malignant melanoma with multiple compression fractures in his back - He required multiple Dilaudid IV doses to get comfortable - CANDLE MOLDER pump ordered overnight; This will give us the opportunity to get a baseline of his usage and adjust his outpatient medication accordingly - Continue his home pain regimen for breakthrough pain: Oxycodone ER 10 mg twice a day Oxycodone 5-325 one tab every 4 hours when necessary pain - Will get palliative care involved COPD with baseline 1-2 L at home, present on admission. Chronic. - Likely due to long-term smoking history, asthma, metastases in his lungs - Patient is on 1-2 L at home at baseline, but does not always use it - He has stopped most of his medications voluntarily; will not add while he is here - Continue oxygen as necessary to keep sats 88-92% - Continue prednisone 10 mg twice daily Malignant melanoma with metastases to the lungs and kidneys, present on admission. Chronic. - Followed by Dr. Arroyo of [facility], Dr. León saw the patient - CT showed no new lesions at this point Osteoporosis, present on admission. Chronic. - Likely due to his metastatic melanoma - Patient has multiple compression fractures, newest one in T10 - Patient discontinued most of his medications; we discussed medication options , but he did not want to start any at this time Depression, present on admission. Chronic. - Continue fluoxetine 20 mg daily History of atrial flutter/fibrillation, present on admission. Chronic. - Patient in normal sinus rhythm at this time; stopped Eliquis voluntarily - Monitor on telemetry PRN Medications - Acetaminophen as needed for mild pain/fever/headache - Bowel regimen as needed - Antiemetic as needed Patient status: Patient is admitted under inpatient, and expected to stay > 2 days due to complication of the disease process. VTE Prophylaxis: Sub-Q Enoxaparin VTE Mechanical Devices: Intermittant Pneumatic CD Resuscitation Status: DNR/DNI:Do Not Resuscitate/Intubate Time spent 35 mins Ravinder [place] MD Jun 21, 2017 08:24 Ravinder [place] MD Jun 21, 2017 08:24
[2017-06-21] MEDS: oxyCODONE ER 10 mg ER12 Tablet PO SCH ×2 (08:30→20:19)
[2017-06-21] MEDS ORDERED: HYDROmorphone 0.5 mg/0.5 mL iSecure Syringe IVPUSH PRN (08:30)
--- NOTE | 2017-06-21 08:51 | NUR ---
Case Management: IMM given and explained to pt. Samara STEWARTRN
--- NOTE | 2017-06-21 09:15 | PROG NOTE ---
[address] [address] PROGRESS NOTE PATIENT: SONAM HIRSCH : 1945 MR#: [id number] ADMIT: 06/20/2017 JOB ID: [id number] DATE: 06/21/2017 SUBJECTIVE: The patient is a 71-year-old gentleman with metastatic melanoma, BRAF-wild, on immunotherapy with pembrolizumab since October 2016. This was temporarily on hold from late January to late March due to cardiac issues (atrial flutter associated with rapid ventricular rate). The patient was seen in clinic yesterday, due for his immunotherapy, but was in miserable pain, rated 10/10, primarily in his neck to lower back. He has been on OxyContin 10 mg twice daily and oxycodone/APAP 5/325 every 4 hours. Over the past several days, he has had much worse symptoms. He has also had loose watery stools intermittently over the past week. He has COPD, and is on 2 L oxygen at home chronically. He was hospitalized for management of his severe pain, and started on a hydromorphone CRUST SORTER. He is moaning and writhing in pain this morning. Even so, he states that he was able to sleep last night. CT imaging of the chest, abdomen, and pelvis, with contrast, done yesterday, that showed severe COPD changes in the lungs bilaterally; a small left pleural effusion, minimally changed; no adenopathy in the chest; normal liver and spleen; no retroperitoneal or mesenteric adenopathy; and a continued decrease in a retrocaval lymph node. There were severe degenerative changes in the right shoulder and old left rib fractures. Multiple compression fractures in the vertebrae were present, with a new compression fracture at T10. OBJECTIVE: Vitals: T 36.8, P 83, R 16, BP 111/52. O2 saturation 98% on 2.5 L oxygen by nasal cannula. HEENT: Conjunctivae pink. Mucous membranes dry. No oral lesions. Nodes: No palpable adenopathy in the neck or axilla. Chest: Scattered expiratory wheezes. Cardiac exam: Regular rate and rhythm, with rare ectopic beat. Normal S1, S2. Abdomen: Soft. Active bowel tones. No palpable splenomegaly or masses. Extremities: Trace edema. 2+ distal pulses. Moderate muscular wasting. LABORATORIES: WBC 10.1, hemoglobin 14.4, hematocrit 43.9%, platelets 279,000. Sodium 138, potassium 3.9, BUN 17, creatinine 0.53, glucose 111. AST 34, ALT 29, alkaline phosphatase 124. ASSESSMENT AND PLAN: Metastatic BRAF-wild melanoma: The patient has most recently been treated with pembrolizumab on May 30, 2017. He was due for treatment yesterday, but presented with severe neck and back pain, as well as his frequent loose stools. While he does not appear to be dehydrated, he does have severe intractable pain. Titrate his hydromorphone drip to achieve better relief. Add an oral nonsteroidal agent as well. CT imaging shows a new compression fracture at T10, in this gentleman with known osteoporosis, but no evidence of progressive melanoma. Nonetheless, consider Palliative Care team consult for symptom relief. I do not believe this is a manifestation of rapidly progressive melanoma. Consider outpatient PET imaging to better evaluate the degree of osseous involvement. His previous PET scan, on October 24, 2016, had shown resolution of the left lower lung nodule, a new hypermetabolic retroperitoneal mass that has been improving, but no abnormal osseous uptake, other than focal uptake in the left shoulder. CC: Dr. Lobito Jaffe
[2017-06-21] MEDS: predniSONE 5 mg Tablet PO SCH ×2 (09:49→20:19)
--- NOTE | 2017-06-21 09:56 | NUR ---
Blood Pressure Pt BP at 0940 Right 77/31, Left 91/59, HR 71 SPO2 98% RR 18. Notified MD, called pharmacy, held oxycontin. Care continues.
[2017-06-21] MEDS: Dextrose 5% 500 ML IV SCH (20:17)
[2017-06-22] VITALS (14 sets, daily range): BP systolic 130–170; BP diastolic 67–95; PULSE 68–89; RESP 14–20; O2SAT 93–99
[2017-06-22] MEDS: 0.9% Sodium Chloride 1,000 ML IV SCH ×2 (03:28→13:31)
--- NOTE | 2017-06-22 04:08 | NUR ---
Pain Pt reporting pain "much better now that I understand this machine (respiratory care assistant)." Pt using CATERER HELPER Dilaudid as needed and also received scheduled Oxycontin at HS. Pt on 2.5L O2 via NC with CPOx and does desat at times but will jump right back up to low/mid 90s. No s/s of alcohol withdrawal. Pt on tele, SR 77 with PVC and IVCD per airframe and powerplant technician. [place] alarm on for safety.
[2017-06-22] MEDS: HYDROmorphone PCA 0.2 mg/mL 30 mL Inj IV PRN ×3 (07:46→21:42)
[2017-06-22] MEDS: oxyCODONE ER 10 mg ER12 Tablet PO SCH ×2 (07:47→21:05)
[2017-06-22] MEDS: predniSONE 5 mg Tablet PO SCH ×2 (07:51→21:03)
--- NOTE | 2017-06-22 08:13 | PCM.PNMED ---
Subjective Date of Service Jun 22, 2017 Subjective Patient seen and examined today. Pain much better controlled today. Vitals noted. Exam Vital Signs Vital Sign - Last Date Time Temp Pulse Resp B/P Pulse Ox O2 Delivery O2 Flow Rate FiO2 06/22/17 07:52 36.8 68 16 130/68 95 Nasal Cannula 2.00 Intake and Output 06/21/17 06/21/17 06/22/17 Cumulative From/Thru 15:00 23:00 07:00 06/20/17 15:37 - 06/22/17 06:47 Intake Total 836 ml 2457 ml 5421 ml Output Total 400 ml 450 ml 1075 ml Balance 436 ml 2007 ml 4346 ml Intake Oral 836 ml 450 ml 1486 ml IV Total 2007 ml 3935 ml Output Urine Total 400 ml 450 ml 1075 ml # Bowel Movements 1 0 1 Exam General: In acute distressgaly. Cardiovascular: Regular rate and rhythm with no murmurs, rubs, or gallops appreciated Pulmonary: Clear to auscultation bilaterally with no crackles, wheezes, or rhonchi. Normal respiratory effort with no use of accessory muscles. Abdomen: Bowel tones present. Soft, nontender, nondistended. No hepatosplenomegaly or masses appreciated. MSK: He has tenderness to palpation in his lower thoracic spine, but no signs of trauma. He was able to sit himself upright in bed without too much distress. Extremities: No clubbing, cyanosis, edema, or lymphadenopathy appreciated. . Lab and Diagnostics Result Diagram: 06/20/17 1515 06/20/17 1515 X-Rays, CTs and MRIs CT chest, abdomen, pelvis 06/20/2017 IMPRESSION: No changes in the CT scan of the thorax abdomen and pelvis since 04/03/17 are further decrease in the retrocaval lymph node or soft tissue mass and a new compression of the T10 vertebral body. Possible minimal increase in small left pleural effusion. The Multiple wedging deformities of thoracic vertebrae. Dictated by: Michael Allen M.D. on 06/20/2017 at 17:31 12-lead ECG ECG Interpretation: Normal sinus rhythm Rate 64 bpm Right bundle branch block Time: 15:54 Interpreted by: ED physician Assessment & Plan Julián Mckeon is a pleasant but unfortunate 71-year-old male with a past medical history of metastatic melanoma to his lungs and kidneys, COPD, atrial flutter, and osteoporosis with multiple compression fractures who presented to the ED with complaints of severe back pain that began 06/19. CT revealed a new compression fracture at T10. Intractable back pain, present on admission. Acute. Ongoing. - Likely due to new compression fracture at T10 - Patient has osteoporosis and malignant melanoma with multiple compression fractures in his back - PELLET PRESS OPERATOR pump on; This will give us the opportunity to get a baseline of his usage and adjust his outpatient medication accordingly - Continue his home pain regimen for breakthrough pain: Oxycodone ER 10 mg twice a day Oxycodone 5-325 one tab every 4 hours when necessary pain - Will get palliative care involved COPD with baseline 1-2 L at home, present on admission. Chronic. - Likely due to long-term smoking history, asthma, metastases in his lungs - Patient is on 1-2 L at home at baseline, but does not always use it - He has stopped most of his medications voluntarily; will not add while he is here - Continue oxygen as necessary to keep sats 88-92% - Continue prednisone 10 mg twice daily Malignant melanoma with metastases to the lungs and kidneys, present on admission. Chronic. - Followed by Dr. Arroyo [facility], Dr. León saw the patient - CT showed no new lesions at this point Osteoporosis, present on admission. Chronic. - Likely due to his metastatic melanoma - Patient has multiple compression fractures, newest one in T10 - Patient discontinued most of his medications; we discussed medication options , but he did not want to start any at this time Depression, present on admission. Chronic. - Continue fluoxetine 20 mg daily History of atrial flutter/fibrillation, present on admission. Chronic. - Patient in normal sinus rhythm at this time; stopped Eliquis voluntarily - Monitor on telemetry PRN Medications - Acetaminophen as needed for mild pain/fever/headache - Bowel regimen as needed - Antiemetic as needed Patient status: Patient is admitted under inpatient, and expected to stay > 2 days due to complication of the disease process. VTE Prophylaxis: Sub-Q Enoxaparin VTE Mechanical Devices: Intermittant Pneumatic CD Resuscitation Status: DNR/DNI:Do Not Resuscitate/Intubate Ravinder [place] MD Jun 22, 2017 08:13
--- NOTE | 2017-06-22 09:04 | NUR ---
HR/MD NOTIFICATION Per it technical specialist patient had a 9 sec PSVT; HR-170's. Patient was noted to be sitting at the side of the bed. Denies chest pain/nausea/SOB. Dr. [place] notified. No new orders at this time.
--- NOTE | 2017-06-22 10:31 | NUR ---
Social Work- Initial Assessment Data: See Initial Assessment for additional information. Pt is a 71 year old male admitted for back pain, diarrhea, dehydration per H&P. Pt's insurance is [employer]. Pt's PCP Diane Aldana MD. Pt's readmit risk score is 6/8 high risk. SW met with pt at bedside regarding d/c plan, SW role explained. Pt alert and oriented x3. Pt's capacity for self-care assessed. Pt resides in [place] in a home with his sister and mother where he is independent at baseline with ADLs and self-care. Pt uses a cane and walker at baseline, also has a w/c available at home. Pt drives. Pt has HH history, company unknown. Pt has history at [facility] for rehab. Pt has no LTC or VA benefits. Pt confirms that his sister will be available to assist him at home if needed. She has been assisting him prior to his admission. Pt has no DPOA on file but states that he has completed this and his sister is DPOA. SW requested copy of paperwork. Pt anticipated to d/c home with his sister to transport home. SW provided d/c checklist at bedside, wrote phone number and plan on whiteboard. SW will continue to follow for d/c planning needs. Assessment: Pt who is capable of self-care and has family support at home. Plan: Pt anticipated to d/c home with his sister to transport. No anticipated d/c planning needs. Pt has necessary DME at home. SW will continue to follow for d/c planning needs. JACI Adams Addendum: 06/22/17 at 1039 by ARNAV CARREON Amended: Links added.
--- NOTE | 2017-06-22 18:49 | NUR ---
Pain/Repositioning Patient is alert and oriented. Tolerates diet and liquids well. Patient is on a ELECTRONIC WARFARE SPECIALIST dilaudid pump to control pain. Patient expressed concerns about taking too much dilaudid. Educated on dose limits and lockout time with ELECTRONIC WARFARE SPECIALIST pump. Patient frequently repositions himself in bed, but does need occasional assistance moving up in bed. Patient sits at the bedside for meals and to use the urinal. Tolerates fairly well. Denies chest pain and SOB. At supper time, patient stated he had some nausea when he sat up to eat, but it passed.
[2017-06-22] MEDS: Dextrose 5% 500 ML IV SCH (20:17)
[2017-06-23] VITALS (17 sets, daily range): BP systolic 102–148; BP diastolic 56–81; PULSE 74–108; RESP 16–24; O2SAT 92–98
[2017-06-23] MEDS: 0.9% Sodium Chloride 1,000 ML IV SCH ×3 (00:12→10:37)
[2017-06-23] MEDS: HYDROmorphone PCA 0.2 mg/mL 30 mL Inj IV PRN ×4 (04:51→19:02)
--- NOTE | 2017-06-23 05:42 | NUR ---
Pain Pt using SENIOR STOCK PLAN ADMINISTRATOR Dilaudid to control pain. Pt reports this to be effective however, pain increasing this morning and pt did require a bolus of the SENIOR STOCK PLAN ADMINISTRATOR. Pt on 2L O2 via NC with CPOx. Pt continues to show no signs of alcohol withdrawal. Pt on tele, SR 80s IVCD per bus driver/monitor. Pt up OPA to BSC and to use urinal. [place] alarm in place.
[2017-06-23] MEDS: oxyCODONE ER 10 mg ER12 Tablet PO SCH (08:01)
[2017-06-23] MEDS: predniSONE 5 mg Tablet PO SCH (08:04)
--- NOTE | 2017-06-23 08:07 | PROG NOTE ---
[address] [address] PROGRESS NOTE PATIENT: SONAM HIRSCH : 1945 MR#: [id number] ADMIT: 06/20/2017 JOB ID: [id number] DATE: 06/23/2017 SUBJECTIVE: The patient is a 71-year-old gentleman with BRAF-wild metastatic melanoma, on immunotherapy with pembrolizumab. He is hospitalized with diarrhea, dehydration, electrolyte abnormalities and severe pain associated with a new compression fracture at T10. CT imaging did not show any other evidence of progressive melanoma during this hospitalization. He continues to titrate his Dilaudid TRAY DELIVERY AIDE, but the pain has also increased. He also has p.r.n. ibuprofen and prednisone available. No fevers. OBJECTIVE: Vitals: T 36.8, P 75, R 21, BP 148/72, O2 saturation 96% on 2 L oxygen by nasal cannula. HEENT: Conjunctivae pink. Mucous membranes are dry. No oral lesions. Nodes: No adenopathy in the neck. Chest: Expiatory wheezes. Cardiac exam: Regular rate and rhythm. Rare ectopic beat. Abdomen: Soft, nontender. Extremities: No edema. Moderate muscular wasting. 2+ distal pulses. LABORATORIES: None today. ASSESSMENT AND PLAN: Metastatic BRAF-wild melanoma: Most recently treated with pembrolizumab (immunotherapy) on May 30, 2017. Frequent loose stools appear to be somewhat better controlled. Continue to titrate his hydromorphone TRAY DELIVERY AIDE to achieve better relief. Await input from the Palliative Care team, with focus on symptom relief. Dr. Arroyo is still actively treating the patient and there was no evidence of disease progression on recent CT imaging, other than the new compression fracture at T10. Consider outpatient PET imaging.
[2017-06-23] MEDS ORDERED: HYDROmorphone PCA 0.2 mg/mL 30 mL Inj IV PRN (09:00)
--- NOTE | 2017-06-23 09:11 | PCM.CONPAL ---
Date of Service Jun 23, 2017 Date of Hospital Admission: Jun 20, 2017 at 18:37 Date of Palliative Consult: Jun 23, 2017 Requesting Provider: Ravinder [place] MD Reason Palliative Care Consult: Pain Palliative Care Recommendation Summary of palliative recommendations: On hospital day 4 (06/23) Palliative Care met with pt to evaluate and help manage his pain. Pt has needed 12.4 mg IV dilaudid in last 14 hours for pain control. This is equal to 0.8mg/hr of IV dilaudid if he had a continuous infusion. He also used 20mg oxycodone orally. He reports his current pain as 8/ 10 mainly in his mid-back. He is wincing and groaning at times. Oncology input (Dr. León, covering for Dr. Arroyo on 06/23): Await input from the Palliative Care team, with focus on symptom relief. Dr. Arroyo is still actively treating the patient and there was no evidence of disease progression on recent CT imaging, other than the new compression fracture at T10. Symptom management: 1. Pain: from compression fractures/on chronic steroids at baseline for pulmonary disease-- --add basal rate of 1mg/hour IV dilaudid to PHOTONICS ENGINEERING TECHNOLOGIST. Change PHOTONICS ENGINEERING TECHNOLOGIST to 0.4mg IV dilaudid every 20 minutes as needed. Tomorrow: check amount of dilaudid IV used in 24 hours and if pt's pain in good control, consider converting pt to either fentanyl patch or long-acting oxycodone with oxyIR for breakthrough pain. --add dexamethasone 12mg IV q AM x 4 days (today-06/23, 06/24,06/25,06/26) . On Jun 27 Dexamethasone is scheduled to stop. At this time, re-order prednisone 10mg BID (pt's home steroid dose). Steroid burst will help as adjuvant for bone compression frx pain. 2. For now, will discontinue oral oxycodone products while pt is on the Dilaudid PHOTONICS ENGINEERING TECHNOLOGIST. Discussed all changes in medications with the first floor Pharmacist, Hakan, who input the order for PHOTONICS ENGINEERING TECHNOLOGIST changes on Dr. Antonio's behalf. DPOA/Advanced Directives/POLST: 1. Code is DNR/DNI. 2. Goals?: Dr. Antonio discussed this directly with Dr. Arroyo on 06/23, and he feels pt's melanoma is responding to therapy. He does not want PC to engage in goals of care conference at this time. 3.HCPOA: pt reports his sister is his HCPOA and paperwork has been done. Baseline function: Pt resides in [place] in a home with his sister and mother where he is independent at baseline with ADLs and self-care. Pt uses a cane and walker at baseline, also has a w/c available at home. Pt drives. Pt has HH history, company unknown. Pt has history at [facility] for rehab. Pt has no LTC or VA benefits. Pt confirms that his sister will be available to assist him at home if needed. She has been assisting him prior to his admission. Pt has no DPOA on file but states that he has completed this and his sister is DPOA. Problems: Resuscitation Status Resuscitation Status: DNR/DNI:Do Not Resuscitate/Intubate . Pain: Moderate Pt History History of Present Illness Julián Mckeon is a pleasant but unfortunate 71-year-old male with a past medical history of metastatic melanoma to his lungs and kidneys, smoking related COPD ( home O2 use 1-2LPM/ predisone 20mg BID), atrial flutter, and osteoporosis with multiple compression fractures who presented to the ED with complaints of severe back pain that began 06/19. He normally has intractable pain due to his multiple compression fractures, but this pain is more severe and is radiating to his anus. He did experience some numbness to his lower extremities, which has resolved. He does report some diarrhea and urinary retention. Any movement makes it worse, and his pain regimen was not helping. He denies any recent injuries or fall. Hospital Course: CT revealed a new compression fracture at T10.He was admitted for pain control on 06/20. On hospital day 4 (06/23) Palliative Care met with pt to evaluate and help manage his pain. Pt has needed 12.4 mg IV dilaudid in last 14 hours for pain control. This is equal to 0.8mg/hr of IV dilaudid if he had a continuous infusion. He also used 20mg oxycodone orally. He reports his current pain as 8/ 10 mainly in his mid-back. He is wincing and groaning at times. His home pain regimen for breakthrough pain: Oxycodone ER 10 mg twice a day Oxycodone 5-325 one tab every 4 hours when necessary pain Past Medical History Significant PMH Noted: Metastatic melanoma to the lung, kidneys COPD on prednisone 20mg po BID and home oxygen 1-2 L at baseline History of sarcoidosis Osteoporosis with multiple compression fractures Dyslipidemia Atrial flutter/fibrillation asthma depression anxiety Surgical History Lung biopsy Hemorrhoidectomy x2 Cataract surgery Family History Mother age 93 alive and healthy Father 53 esophageal cancer he was a smoker 2 sisters one at 55 of breast cancer One brother alive and healthy Social History Hx Alcohol Use: Yes Hx Substance Use: No Hx Tobacco Use: Yes Smoking Status: Current Every Day Smoker Living Arrangement: with mom and sister in [place] Medications Current Medications: Current Medications Albuterol/ Ipratropium 3 ml Q6 NEB; Start 06/23/17 at 08:30 Scheduled Fluoxetine (Fluoxetine) 20 Mg Capsule 20 MG PO DAILY Oxycodone ER (Oxycontin) 10 Mg Tab.er.12h 10 MG PO BID Prednisone (PredniSONE) 5 Mg Tab 10 MG PO BID Scheduled PRN oxyCODONE-Acetaminophen 5-325 mg (oxyCODONE-Acetaminophen 5-325 mg) 1 Each Tablet 1 TAB PO Q4H PRN PRN For Pain Objective Findings Exam Vital Sign - Last Date Time Temp Pulse Resp B/P Pulse Ox O2 Delivery O2 Flow Rate FiO2 06/23/17 08:05 36.3 83 20 139/81 95 Nasal Cannula 2.00 Intake and Output 06/22/17 06/22/17 06/23/17 Cumulative From/Thru 15:00 23:00 07:00 06/20/17 15:37 - 06/23/17 05:56 Intake Total 2368 ml 1445 ml 9234 ml Output Total 725 ml 1050 ml 2850 ml Balance 1643 ml 395 ml 6384 ml Intake Oral 1028 ml 520 ml 3034 ml IV Total 1340 ml 925 ml 6200 ml Output Urine Total 725 ml 1050 ml 2850 ml # Bowel Movements 0 1 General: Alert/Oriented x3, Person, Place, Time, Situation HEENT: Atraumatic, PERRLA, EOMI, Scleral Anicteric, Mucous Membr Moist/[place] Heart: Regular Rate/Rhythm, Normal S1, S2, No Murmurs/Rubs/Gallops Lungs: Clear to Auscultation, Other (tender in mid to lower back bilaterally.) Abdomen: Bowel Tones x4, Soft, Non Tender Neuro: Exam Intact Extremities: Pulses Palpable x4, Warm, No Edema Lab/Diagnostics Lab and Imaging results reviewed in detail in EMR. Time spent Total time 70 minutes; >50% face to face with patient and/or family, providing counselling regarding plans and recommendations, and in care coordination with his/her medical teams. Jaylene Antonio MD Jun 23, 2017 09:11 Total time 70 minutes; >50% face to face with patient and/or family, providing counselling regarding plans and recommendations, and in care coordination with his/her medical teams. Jaylene Antonio MD Jun 23, 2017 09:11
[2017-06-23] MEDS: Dexamethasone 4 mg/mL Inj IVPUSH SCH (10:05)
[2017-06-23] MEDS: Albuterol-Ipratropium 3 mL Inhalation Solution NEB SCH ×3 (10:21→21:06)
--- NOTE | 2017-06-23 11:25 | NUR ---
Palliative Care Palliative Care received order from Dr [place] 06/21/17 to assist with pain management. Patient admitted 06/20/17. Jenna (sister) [phone] Palliative Care to follow. Aurora Paul
--- NOTE | 2017-06-23 15:34 | PCM.PNMED ---
Subjective Date of Service Jun 23, 2017 Subjective Patient seen and examined. Doing much better today. On the licensed funeral director. Exam Vital Signs Vital Sign - Last Date Time Temp Pulse Resp B/P Pulse Ox O2 Delivery O2 Flow Rate FiO2 06/23/17 14:29 84 18 96 Nasal Cannula 2.50 06/23/17 12:30 36.7 136/75 Intake and Output 06/22/17 06/22/17 06/23/17 Cumulative From/Thru 15:00 23:00 07:00 06/20/17 15:37 - 06/23/17 05:56 Intake Total 2368 ml 1445 ml 9234 ml Output Total 725 ml 1050 ml 2850 ml Balance 1643 ml 395 ml 6384 ml Intake Oral 1028 ml 520 ml 3034 ml IV Total 1340 ml 925 ml 6200 ml Output Urine Total 725 ml 1050 ml 2850 ml # Bowel Movements 0 1 Exam General: No distress Cardiovascular: Regular rate and rhythm with no murmurs, rubs, or gallops appreciated Pulmonary: Clear to auscultation bilaterally with no crackles, wheezes, or rhonchi. Normal respiratory effort with no use of accessory muscles. Abdomen: Bowel tones present. Soft, nontender, nondistended. No hepatosplenomegaly or masses appreciated. MSK: He has tenderness to palpation in his lower thoracic spine, but no signs of trauma. He was able to sit himself upright in bed without too much distress. Extremities: No clubbing, cyanosis, edema, or lymphadenopathy appreciated. Lab and Diagnostics Result Diagram: 06/20/17 1515 06/20/17 1515 X-Rays, CTs and MRIs CT chest, abdomen, pelvis 06/20/2017 IMPRESSION: No changes in the CT scan of the thorax abdomen and pelvis since 04/03/17 are further decrease in the retrocaval lymph node or soft tissue mass and a new compression of the T10 vertebral body. Possible minimal increase in small left pleural effusion. The Multiple wedging deformities of thoracic vertebrae. Dictated by: Michael Allen M.D. on 06/20/2017 at 17:31 12-lead ECG ECG Interpretation: Normal sinus rhythm Rate 64 bpm Right bundle branch block Time: 15:54 Interpreted by: ED physician Assessment & Plan Julián Mckeon is a pleasant but unfortunate 71-year-old male with a past medical history of metastatic melanoma to his lungs and kidneys, COPD, atrial flutter, and osteoporosis with multiple compression fractures who presented to the ED with complaints of severe back pain that began 06/19. CT revealed a new compression fracture at T10. Intractable back pain, present on admission. Acute. Ongoing. - Likely due to new compression fracture at T10 - no neurological signs - Patient has osteoporosis and malignant melanoma with multiple compression fractures in his back - Palliative care consulted , recs : --add basal rate of 1mg/hour IV dilaudid to CANINE SERVICE TEACHER. Change CANINE SERVICE TEACHER to 0.4mg IV dilaudid every 20 minutes as needed. Tomorrow: check amount of dilaudid IV used in 24 hours and if pt's pain in good control, consider converting pt to either fentanyl patch or long-acting oxycodone with oxyIR for breakthrough pain. --add dexamethasone 12mg IV q AM x 4 days (today-Mon 06/23, 06/24,06/25,06/26). On Jun 27 Dexamethasone is scheduled to stop. At this time, re-order prednisone 10mg BID (pt's home steroid dose). Steroid burst will help as adjuvant for bone compression frx pain. - will get MRI Thoracic spine COPD with baseline 1-2 L at home, present on admission. Chronic. - Likely due to long-term smoking history, asthma, metastases in his lungs - Patient is on 1-2 L at home at baseline, but does not always use it - He has stopped most of his medications voluntarily; will not add while he is here - Continue oxygen as necessary to keep sats 88-92% - Continue prednisone 10 mg twice daily Malignant melanoma with metastases to the lungs and kidneys, present on admission. Chronic. - Followed by Dr. Arroyo of [facility], Dr. León saw the patient - CT showed no new lesions at this point Osteoporosis, present on admission. Chronic. - Likely due to his metastatic melanoma - Patient has multiple compression fractures, newest one in T10 - Patient discontinued most of his medications; we discussed medication options , but he did not want to start any at this time Depression, present on admission. Chronic. - Continue fluoxetine 20 mg daily History of atrial flutter/fibrillation, present on admission. Chronic. - Patient in normal sinus rhythm at this time; stopped Eliquis voluntarily - Monitor on telemetry PRN Medications - Acetaminophen as needed for mild pain/fever/headache - Bowel regimen as needed - Antiemetic as needed Patient status: Patient is admitted under inpatient, and expected to stay > 2 days due to complication of the disease process. VTE Prophylaxis: Sub-Q Enoxaparin VTE Mechanical Devices: Intermittant Pneumatic CD Resuscitation Status: DNR/DNI:Do Not Resuscitate/Intubate Time spent 35 mins Ravinder [place] MD Jun 23, 2017 15:34
[2017-06-23] MEDS: Dextrose 5% 500 ML IV SCH (15:45)
--- NOTE | 2017-06-23 16:02 | NUR ---
PAIN/ACTIVITY TOPPIECE CHOPPER dose changed at 1000. Basal rate ongoing at 1 mg/hr. with TOPPIECE CHOPPER dose of 0.4 mg/20 mins. with a 1.2 mg lockout in 1 hour. Patients pain level via FELDT scale is 0/10 at rest; 7-8/10 with activity. Tolerating liquids PO and his diet well. Denies nausea. No emesis noted. On O2 at 2 LPM via NC. Patient is is wheezy. New orders for neb treatment received. Patient has been able to sit in the chair for a couple of hours this shift and tolerated it fairly. PT to evaluate in the morning. MRI was ordered. Patient has been using his call light appropriately. Does not attempt to get OOB on his own. Patient is on tele. Per telephone installer patient is on sinus rhythm; HR-80's with some PVC's/IVCD. Patient had a 9 sec run of PSVT; HR-140's. Patient was asymptomatic. Dr. [place] is aware. Care continues.
--- NOTE | 2017-06-23 21:07 | DRSVH ---
PROCEDURE: MRI THORACIC SPINE WITHOUT CONTRAST ([id number]) INDICATIONS: compression fracture TECHNIQUE: Noncontrast sagittal T1 spine echo and T2 fast spin echo, sagittal STIR, axial T1 and T2 fast spin ec ho through the thoracic spine. COMPARISON: [facility], CT, CT CHEST ABD PELVIS W CON, 06/20/2017, 17:13. [facility], CT, CT CHEST ABD PELVIS W CON, 04/03/2017, 11:19. FINDINGS: Motion artifact limits axial images. Image quality: Excellent. Alignment and Curvature: There is mildly exaggerated kyphosis of the thoracic spine secondary to mult iple wedge compression deformities. There is grade I C7 on T1 anterolisthesis. Bone Marrow: A severe wedge compression deformity is present at T5 and T7 with approximately 80% vert ebral body height loss. These are unchanged when compared with the CT dated 04/03/17. Superior endplat e depression at T4 is unchanged from the prior studies. There is extensive marrow edema at T6 and the superior T7 endplate suggesting acute or subacute fracture. Similarly, superior endplate marrow ham a is present at T10 suggesting acute or subacute compression deformity. Retropulsed fracture fragment s are present at T5 and T7 with resultant mild canal stenosis. Spinal Cord: Visualized spinal cord is normal in size and signal. Paraspinous Soft Tissues: No paravertebral masses. There is a small left pleural effusion. Miscellaneous: On axial images, central canal and foramina appear widely patent at all scanned level s. IMPRESSION: 1. Limited study given patient motion artifact. 2. Marrow edema throughout T6, at the superior T7 endplate, and at the superior T10 endplate suggesti ng acute or subacute compression deformities. Although these may be associated with prior trauma and severe osteopenia, diffuse marrow edema T6 may also be associated with an osseous metastasis. If ther e is clinical suspicion for osseous metastasis, contrast-enhanced MRI of the thoracic spine is recomm ended. 3. C7-T1 grade I anterolisthesis. 4. Mildly retropulsed fracture fragments at T5 and T7 with resultant mild canal stenosis. 5. Small left pleural effusion. Dictated by: Keri Ferguson M.D. on 06/23/2017 at 20:54 Approved by: Keri Ferguson M.D. on 06/23/2017 at 21:06
[2017-06-24] VITALS (20 sets, daily range): BP systolic 144–212; BP diastolic 86–104; PULSE 67–115; RESP 12–22; O2SAT 90–98
[2017-06-24] MEDS: Thiamine Inj 100 MG in 0.9% Sodium Chloride 100 ML IV SCH ×2 (00:14→11:10)
[2017-06-24] MEDS: HYDROmorphone PCA 0.2 mg/mL 30 mL Inj IV PRN ×2 (01:27→06:50)
[2017-06-24] MEDS: 0.9% Sodium Chloride 1,000 ML IV SCH (02:19)
[2017-06-24] MEDS: Albuterol-Ipratropium 3 mL Inhalation Solution NEB SCH ×5 (02:30→20:50)
--- NOTE | 2017-06-24 04:06 | NUR ---
[place] Pt alert and anxious at start of shift, off unit to MRI. On return from MRI pt was significantly more agitated, also paranoid and very confused about what had happened. When family arrived, agitation escalated with pt unable to behave cooperatively. Demanded to seed specialist and security. [facility] protocol initiated as family confirmed that pt has daily alcohol consumption, they report that he drinks a large bottle of Fireball whiskey every 3 days. Pt was resistant to care, refused medications, fighting to "go to bed" while sitting on bed. Kirsty rivas called and security talked with pt. Rectification Printer also came and talked with him. Initiated restraints as pt was combative; ativan administered according to [facility] protocol. After two doses, pt relaxed and able to sleep. Restraints retained; when pt woke later he was agitated, attempting to "get out of here," denied being in the hospital. [facility] protocol continues. Hourly checks for safety and comfort while in restraints.
[2017-06-24] MEDS: Furosemide 10 mg/mL 4 mL Inj IVPUSH SCH ×2 (05:59→10:11)
--- NOTE | 2017-06-24 06:42 | NUR ---
Philippe / restraints Pt gets very agitated; striking out and calls out when needing to void, unable to fully empty bladder. Pt has been unable to assist with urinal use during night, unable to follow directions. High B/P noted and that lungs were impacted and fluid balance positive; Md notified, IV fluids slowed to TKO with MANAGER TECHNOLOGY and lasix given, indwelling philippe placed for accurate I&O. Immediate return of 1200 cc pale urine. Pt tolerated procedure without waking up, pulse oximetry in place, tele continues. Restraints remain in place until pt can demonstrate understanding and participate in care with safety. Hourly rounding ongoing.
[2017-06-24] MEDS: Multivit-Miner-Folic Acid-Iron Tablet PO SCH (08:30)
--- NOTE | 2017-06-24 09:32 | PCM.PNMED ---
Subjective Date of Service Jun 24, 2017 Subjective Patient seen and examined. Sleeping in bed in restraints. Breathing comfortably. He had episode of agitation last night requiring ativan. Vitals noted. Exam Vital Signs Vital Sign - Last Date Time Temp Pulse Resp B/P Pulse Ox O2 Delivery O2 Flow Rate FiO2 06/24/17 08:00 15 96 06/24/17 08:00 Supplement Oxygen 06/24/17 05:12 36.7 67 212/104 4.00 Intake and Output 06/23/17 06/23/17 06/24/17 Cumulative From/Thru 15:00 23:00 07:00 06/20/17 15:37 - 06/24/17 06:38 Intake Total 1945 ml 1426 ml 93289 ml Output Total 1400 ml 2080 ml 6330 ml Balance 545 ml -654 ml 6275 ml Intake Oral 837 ml 250 ml 4121 ml IV Total 1108 ml 1176 ml 8484 ml Output Urine Total 1400 ml 2080 ml 6330 ml # Voids 2 2 # Bowel Movements 0 0 1 Exam General: No distress Cardiovascular: Regular rate and rhythm with no murmurs, rubs, or gallops appreciated Pulmonary: Clear to auscultation bilaterally with no crackles, wheezes, or rhonchi. Normal respiratory effort with no use of accessory muscles. Abdomen: Bowel tones present. Soft, nontender, nondistended. No hepatosplenomegaly or masses appreciated. MSK: He has tenderness to palpation in his lower thoracic spine, but no signs of trauma. He was able to sit himself upright in bed without too much distress. Extremities: No clubbing, cyanosis, edema, or lymphadenopathy appreciated. Lab and Diagnostics Result Diagram: 06/20/17 1515 06/20/17 1515 X-Rays, CTs and MRIs CT chest, abdomen, pelvis 06/20/2017 IMPRESSION: No changes in the CT scan of the thorax abdomen and pelvis since 04/03/17 are further decrease in the retrocaval lymph node or soft tissue mass and a new compression of the T10 vertebral body. Possible minimal increase in small left pleural effusion. The Multiple wedging deformities of thoracic vertebrae. Dictated by: Michael Allen M.D. on 06/20/2017 at 17:31 MRI Spine IMPRESSION: 1. Limited study given patient motion artifact. 2. Marrow edema throughout T6, at the superior T7 endplate, and at the superior T10 endplate suggesting acute or subacute compression deformities. Although these may be associated with prior trauma and severe osteopenia, diffuse marrow edema T6 may also be associated with an osseous metastasis. If there is clinical suspicion for osseous metastasis, contrast-enhanced MRI of the thoracic spine is recommended. 3. C7-T1 grade I anterolisthesis. 4. Mildly retropulsed fracture fragments at T5 and T7 with resultant mild canal stenosis. 5. Small left pleural effusion. 12-lead ECG ECG Interpretation: Normal sinus rhythm Rate 64 bpm Right bundle branch block Time: 15:54 Interpreted by: ED physician Assessment & Plan Julián Mckeon is a pleasant but unfortunate 71-year-old male with a past medical history of metastatic melanoma to his lungs and kidneys, COPD, atrial flutter, and osteoporosis with multiple compression fractures who presented to the ED with complaints of severe back pain that began 06/19. CT revealed a new compression fracture at T10. Agitation likely 2/2 alcohol withdrawal - patient was agitated last night - likely due to alcohol withdrawal, drinks whiskey everynight - on CIWA protocol, will have to readjust opiods due to concerns for resp depression Intractable back pain, present on admission. Acute. Ongoing. - Likely due to new compression fracture at T10 - no neurological signs - Patient has osteoporosis and malignant melanoma with multiple compression fractures in his back - Palliative care consulted , recs : --basal dose stopped. TEST FIXTURE ASSEMBLER to 0.4mg IV dilaudid every 20 minutes as needed. Tomorrow: check amount of dilaudid IV used in 24 hours and if pt's pain in good control, consider converting pt to either fentanyl patch or long-acting oxycodone with oxyIR for breakthrough pain. --add dexamethasone 12mg IV q AM x 4 days (today-Mon 06/23, 06/24,06/25,06/26). On Jun 27 Dexamethasone is scheduled to stop. At this time, re-order prednisone 10mg BID (pt's home steroid dose). Steroid burst will help as adjuvant for bone compression frx pain. - MRI Thoracic spine noted for edema in marrow as noted above, on decadron, which should take care of edema - will get MRI with contrast to rule out metastasis COPD with baseline 1-2 L at home, present on admission. Chronic. - Likely due to long-term smoking history, asthma, metastases in his lungs - Patient is on 1-2 L at home at baseline, but does not always use it - He has stopped most of his medications voluntarily; will not add while he is here - Continue oxygen as necessary to keep sats 88-92% - Continue prednisone 10 mg twice daily Malignant melanoma with metastases to the lungs and kidneys, present on admission. Chronic. - Followed by Dr. Arroyo of [facility]-Onc, Dr. León saw the patient - CT showed no new lesions at this point Osteoporosis, present on admission. Chronic. - Likely due to his metastatic melanoma - Patient has multiple compression fractures, newest one in T10 - Patient discontinued most of his medications; we discussed medication options , but he did not want to start any at this time Depression, present on admission. Chronic. - Continue fluoxetine 20 mg daily History of atrial flutter/fibrillation, present on admission. Chronic. - Patient in normal sinus rhythm at this time; stopped Eliquis voluntarily - Monitor on telemetry PRN Medications - Acetaminophen as needed for mild pain/fever/headache - Bowel regimen as needed - Antiemetic as needed Patient status: Patient is admitted under inpatient, and expected to stay > 2 days due to complication of the disease process. VTE Prophylaxis: Sub-Q Enoxaparin VTE Mechanical Devices: Intermittant Pneumatic CD Resuscitation Status: DNR/DNI:Do Not Resuscitate/Intubate Time spent 35 mins Ravinder [place] MD Jun 24, 2017 09:32
--- NOTE | 2017-06-24 09:46 | ABG ---
DateTimeAnalyzed 09:37:00 -_ pH ____7.503 - 7.350 7.450 pCO2 ___45.8__ -mmHg 35.0 45.0 pO2 111 -mmHg 69.0 116 HCO3- ___35.7__ -mmol/L 22.0 26.0 ABE ___11.1__ -mmol/L -2.0 2.0 tHb ___13.7__ -g/dL 12.0 18.0 O2Hb ___96.8__ -% COHb ____1.0__ -% 0.0 1.5 MetHb ____0.8__ -% 0.4 1.5 sO2 ___98.6__ -% 25.0 FIO2 ___28.0__ -% Drawn By RC - Date/Time Notified____ 09:45:00 -_ Spontaneous_RR ___18.0__ -b/min Liter_Flow ____2.0__ -L/min Oxygen Device 1 __CANNULA - Notified By RC - Notified Whom ___singla - Age 64 -years B 754 -mmHg tO2 ___18.8__ -Vol% Tristan test _Positive -
[2017-06-24] MEDS: Dexamethasone 4 mg/mL Inj IVPUSH SCH (10:10)
--- NOTE | 2017-06-24 11:22 | NUR ---
CIWA, sedation Pt. was found sedated during bedside report. SPECIAL EFFECTS DESIGNER Dilaudid continuous rate was stopped immediately. Pt. moaned with sternum rub, RR 15, on 2L/min O2 by NC, SpO 98%. RT came to assess pt., no Narcan indicated. ABG was ordered by Dr. [place]. ABG WNL. Pt. became more alert and agitated later, attempted to get out of bed x2. He was confused, screamed, "I got to go (urinate)." He was reoriented and reassured that he has Harris catheter to empty his bladder. Continue soft wrist restraints as pt. is confused/restless/agitated in intervals. CIWA 6 this morning.
--- NOTE | 2017-06-24 14:49 | PCM.PALLBR ---
Palliative Care Recommendation Summary of palliative recommendations: Oncology input (Dr. León, covering for Dr. Arroyo on 06/23): Await input from the Palliative Care team, with focus on symptom relief. Dr. Arroyo is still actively treating the patient and there was no evidence of disease progression on recent CT imaging, other than the new compression fracture at T10. Symptom management: 1. Pain: from compression fractures/on chronic steroids at baseline for pulmonary disease-- -- Basal rate IV dilaudid currently on hold due to decreased level of consciousness per nursing protocol orders. Will reinstitute as tolerated as his level of consciousness improves. Tomorrow: check amount of dilaudid IV used in 24 hours and if pt's pain in good control, consider converting pt to either fentanyl patch or long-acting oxycodone with oxyIR for breakthrough pain. -- oral oxycodone discontinued while pt is on the Dilaudid RELASTER -- Continue dexamethasone 12mg IV q AM through 06/26. On Jun 27 Dexamethasone is scheduled to stop. At that time, re-order prednisone 10mg BID ( pt's home steroid dose). Steroid burst will help as adjuvant for bone compression frx pain. -- Continued management of delirium/possible alcohol withdrawal syndrome per protocol First floor pharmacist, [place]akan, assisted with clearing up hydromorphone orders DPOA/Advanced Directives/POLST: 1. Code is DNR/DNI. 2. Goals?: Dr. Antonio discussed this directly with Dr. Arroyo on Mon 06/23, and he feels pt's melanoma is responding to therapy. He does not want PC to engage in goals of care conference at this time. 3.HCPOA: pt reports his sister is his HCPOA and paperwork has been done. Baseline function: Pt resides in [place] in a home with his sister and mother where he is independent at baseline with ADLs and self-care. Pt uses a cane and walker at baseline, also has a w/c available at home. Pt drives. Pt has HH history, company unknown. Pt has history at [facility] for rehab. Pt has no LTC or VA benefits. Pt confirms that his sister will be available to assist him at home if needed. She has been assisting him prior to his admission. Pt has no DPOA on file but states that he has completed this and his sister is DPOA. Problems: End of Life Preferences DO NOT RESUSCITATE/DO NOT INTUBATE Disposition To be determined Resuscitation Status Resuscitation Status: DNR/DNI:Do Not Resuscitate/Intubate . Pain: Mild Symptom management: Drowsiness/sleepiness, Pain, Delirium Total time 35 minutes; >50% face to face with patient , providing counselling regarding plans and recommendations, and in care coordination with his medical teams. Palliative Brief Note Date of Service Jun 24, 2017 . Returned to reevaluate patient. Prior to visiting, reviewed his updated records in the EMR in detail and obtained signout from other palliative provider. Spoke with his bedside nurse and with his hospitalist. Events of the evening reviewed. Patient became quite delirious- it thereafter came to light that he has a history of significant alcohol intake at home ( possibly a fifth of hard liquor every 3 days) raising possibility of acute alcohol withdrawal contributing to his delirium. CIWA protocol activated. This morning, patient is somnolent. Could not arouse him without painful stimulation. Vital signs noted. Skin is pink warm and dry. ABGs checked and did not show significant CO2 retention. Lungs with a few dependent crackles, heart sounds regular, abdomen soft and without tenderness or rigidity. Extremities with trace edema. Laboratory and imaging studies reviewed. Manjit Aguilar MD Jun 24, 2017 14:49
[2017-06-25] VITALS (14 sets, daily range): BP systolic 121–186; BP diastolic 81–113; PULSE 80–104; RESP 16–20; O2SAT 92–98
[2017-06-25 06:21] LABS: BASOPHILS % (AUTO) 0.1 % (0-3); EOSINOPHILS % (AUTO) 0 % (0-5); MONOCYTES % (AUTO) 11.5 % (4-12); Mean Corpuscular Hemoglobin 31.5 pg (27.0-35.0); Mean Corpuscular Volume 97.5 fL (81-100); Platelet Count 241 bil/L (150-400)
--- NOTE | 2017-06-25 06:44 | NUR ---
Neuro status/CIWAs Patient confused, agitated at shift change, CIWA 19. Patient treated with ativan x3 during shift and APPLICATIONS TESTER dilaudid for pain. Patient in restraints for trying to pull out philippe catheter, IV, and heart monitor wires. 2L O2/NC. Pt c/o back pain. Patient oriented to self, place. Reoriented to date and situation. Paged provider [phone] and [phone] for hypertension, BP 176/113 and 170/98, no new orders provided at this time.
[2017-06-25] MEDS: Furosemide 10 mg/mL 4 mL Inj IVPUSH SCH (08:00)
[2017-06-25] MEDS: Dexamethasone 4 mg/mL Inj IVPUSH SCH (08:01)
[2017-06-25] MEDS: Thiamine Inj 100 MG in 0.9% Sodium Chloride 100 ML IV SCH (08:01)
[2017-06-25] MEDS: Multivit-Miner-Folic Acid-Iron Tablet PO SCH (08:03)
[2017-06-25] MEDS: Albuterol-Ipratropium 3 mL Inhalation Solution NEB SCH ×3 (08:12→20:22)
--- NOTE | 2017-06-25 10:30 | NUR ---
BP and HR Blood pressure and HR trending up. HR 110s and SBP 160-170s. Dr. Rolon made aware.
[2017-06-25] MEDS ORDERED: HYDROmorphone 0.5 mg/0.5 mL iSecure Syringe IVPUSH PRN (11:10)
[2017-06-25] MEDS: oxyCODONE ER 10 mg ER12 Tablet PO SCH ×2 (11:46→21:25)
--- NOTE | 2017-06-25 13:54 | PCM.PALLBR ---
Palliative Care Recommendation Summary of palliative recommendations: Oncology input (Dr. León, covering for Dr. Arroyo on 06/23): Await input from the Palliative Care team, with focus on symptom relief. Dr. Arroyo is still actively treating the patient and there was no evidence of disease progression on recent CT imaging, other than the new compression fracture at T10. Symptom management: Trial of IV hydromorphone set up by Dr. Antonio was aborted because of his excessive lethargy (which was actually more likely due to his lorazepam per [facility] protocol). Today the patient really appears quite comfortable though he has received minimal narcotics for nearly 24 hours. 1. Pain: from compression fractures/on chronic steroids at baseline for pulmonary disease-- -- Discontinue [employer]OR OF BUSINESS [employer]ELOP[employer]. Restart oxycodone ER 10 mg BID with oxycodone IR 5- 10 mg Q 3hr prn. Hydromorphone 0.5 mg IV Q 2hr prn breakthrough pain not controlled with oral agents. Monitor use of narcotics over the next 24 hours and adjust as needed. Dr. Antonio had also considered fentanyl transdermal for long-acting pain control as another option if he fails to obtain adequate control with oxycodone as ordered -- Continue dexamethasone 12mg IV q AM through 06/26. On Jun 27 Dexamethasone is scheduled to stop. At that time, re-order prednisone 10mg BID ( pt's home steroid dose). Steroid burst will help as adjuvant for bone compression frx pain. -- Continued management of delirium/possible alcohol withdrawal syndrome per protocol DPOA/Advanced Directives/POLST: 1. Code is DNR/DNI. 2. Goals?: Dr. Antonio discussed this directly with Dr. Arroyo on Mon 06/23, and he feels pt's melanoma is responding to therapy. He does not want PC to engage in goals of care conference at this time. 3.HCPOA: pt reports his sister is his HCPOA and paperwork has been done. Baseline function: Pt resides in [place] in a home with his sister and mother where he is independent at baseline with ADLs and self-care. Pt uses a cane and walker at baseline, also has a w/c available at home. Pt drives. Pt has HH history, company unknown. Pt has history at [facility] for rehab. Pt has no LTC or VA benefits. Pt confirms that his sister will be available to assist him at home if needed. She has been assisting him prior to his admission. Pt has no DPOA on file but states that he has completed this and his sister is DPOA. Problems: End of Life Preferences DO NOT RESUSCITATE/DO NOT INTUBATE Disposition To be determined Resuscitation Status Resuscitation Status: DNR/DNI:Do Not Resuscitate/Intubate . Pain: Mild Symptom management: Pain, Delirium Total time 35 minutes; >50% face to face with patient , providing counselling regarding plans and recommendations, and in care coordination with his medical teams. Palliative Brief Note Date of Service Jun 25, 2017 . Returned to reevaluate patient. Prior to visiting, reviewed his updated records in the EMR in detail and spoke with his nurse. When I arrived, physical therapy was finishing up with him. They noted he was able to stand and take a couple of steps with heavy assistance. The recommendation will be that he discharge to SNF. Once patient seated and resting, he told me that his pain control seemed good. He denied any significant shortness of breath. When asked more complex questions he was clearly quite confused, making inappropriate comments and requests. His trial of IV hydromorphone for pain was interrupted yesterday when he became quite lethargic after receiving IV lorazepam as part of his CIWA protocol. Basal mold was turned off and he has used the prn [employer]OR [employer] BUSINESS DEVELOPMENT little if at all. Despite this, he indicates that he has little if any pain and he moves around in the chair without evidence of discomfort. On exam, chronically ill-appearing man, confused, sitting in chair. Plethoric. Vital signs noted. Skin warm and dry. Multiple ecchymoses. Lungs with diminished breath sounds diffusely but no rales or wheezes. Heart sounds regular with occasional ectopy. Abdomen round, nontender. Extremities with diffuse advanced muscle atrophy. Laboratory studies reviewed Manjit Aguilar MD Jun 25, 2017 13:54
--- NOTE | 2017-06-25 15:00 | NUR ---
CIWA CIWA score-18. Patient was redirected. Patient refused IV Ativan and did not want to take any PO medication. Sitter is at the bedside. Redirected. Patient wanted to talk to the physician. Dr. Rolon made aware. Dr. Rolon is aware RE: Patients HR and BP trending up.
--- NOTE | 2017-06-25 15:29 | NUR ---
MIREYA: Patient agitated and increasingly confused unable to sign MIREYA asked MANAGER SCHEDULING to follow up with NOK/Family
--- NOTE | 2017-06-25 16:30 | PCM.PNMED ---
Subjective Date of Service Jun 25, 2017 Subjective Patient is in bed, intermittently confused, agitated. Exam Vital Signs Vital Sign - Last Date Time Temp Pulse Resp B/P Pulse Ox O2 Delivery O2 Flow Rate FiO2 06/25/17 16:04 36.8 104 18 145/92 95 Nasal Cannula 3.00 Intake and Output 06/24/17 06/24/17 06/25/17 Cumulative From/Thru 15:00 23:00 07:00 06/20/17 15:37 - 06/25/17 06:51 Intake Total 265 ml 107 ml 30692 ml Output Total 750 ml 7080 ml Balance 265 ml -643 ml 5897 ml Intake Oral 0 ml 4121 ml IV Total 265 ml 107 ml 8856 ml Output Urine Total 750 ml 7080 ml # Voids 2 # Bowel Movements 0 1 Exam PHYSICAL EXAM: GENERAL: Alert, not in distress HEAD: atraumatic, normocephalic,s. EYES: EOMI, anicteric, able to fully open and close eyelids SKIN: Skin color normal, turgor normal. No visible rashes or lesions. EAR, NOSE, MOUTH, THROAT: Lips, oral mucosa, tongue gums, oropharynx are moist , pink, no lesions. Ears normal appearance, no lesions. NECK: supple ROM normal. RESPIRATORY: Lungs clear to auscultation. Good diaphragmatic excursion CARDIAC: normal S1 and S2; no rubs, murmurs, or gallops; regular rate and rhythm ABDOMEN: Abdomen soft, non-tender. BS normal. No masses or organomegaly. MUSCULOSKELETAL: ROM full, muscles are not tender EXTREMITIES: no pitting edema in LE, no new deformities or skin discoloration. NEURO: Alert, oriented X 1, Sensation grossly intact., Cranial nerves II-XII intact, Grossly normal motor function. PULSES: 2+ radial, 2+ carotid REVIEW OF SYSTEMS: GENERAL: no malaise, no fevers., SEE HPI HEENT: Negative for frequent or significant headaches All other reviewed and negative other than HPI. Lab and Diagnostics Result Diagram: 06/25/17 0544 06/25/17 0544 X-Rays, CTs and MRIs CT chest, abdomen, pelvis 06/20/2017 IMPRESSION: No changes in the CT scan of the thorax abdomen and pelvis since 04/03/17 are further decrease in the retrocaval lymph node or soft tissue mass and a new compression of the T10 vertebral body. Possible minimal increase in small left pleural effusion. The Multiple wedging deformities of thoracic vertebrae. Dictated by: Michael Allen M.D. on 06/20/2017 at 17:31 MRI Spine IMPRESSION: 1. Limited study given patient motion artifact. 2. Marrow edema throughout T6, at the superior T7 endplate, and at the superior T10 endplate suggesting acute or subacute compression deformities. Although these may be associated with prior trauma and severe osteopenia, diffuse marrow edema T6 may also be associated with an osseous metastasis. If there is clinical suspicion for osseous metastasis, contrast-enhanced MRI of the thoracic spine is recommended. 3. C7-T1 grade I anterolisthesis. 4. Mildly retropulsed fracture fragments at T5 and T7 with resultant mild canal stenosis. 5. Small left pleural effusion. 12-lead ECG ECG Interpretation: Normal sinus rhythm Rate 64 bpm Right bundle branch block Time: 15:54 Interpreted by: ED physician Assessment & Plan Julián Mckeon is a pleasant but unfortunate 71-year-old male with a past medical history of metastatic melanoma to his lungs and kidneys, COPD, atrial flutter, and osteoporosis with multiple compression fractures who presented to the ED with complaints of severe back pain that began 06/19. CT revealed a new compression fracture at T10. Intermittent Agitation likely 2/2 alcohol withdrawal - likely due to alcohol withdrawal, drinks whiskey everynight - on CIWA protocol Back pain, Compression fracture at T10, osteoporosis and malignant melanoma with multiple compression fractures in his back - stable - Patient has - Palliative care consulted - MRI Thoracic spine noted for edema in marrow as noted above, on decadron, which should take care of edema Chronic respiratory failure, COPD with baseline 1-2 L at home, present on admission - Likely due to long-term smoking history, asthma, metastases in his lungse it - He has stopped most of his medications voluntarily Plan - c/w RT, O2, steroids Malignant melanoma with metastases to the lungs and kidneys - Followed by Dr. Arroyo of [facility], Dr. León saw the patient - CT showed no new lesions at this point Depression, present on admission - stable. - Continue fluoxetine 20 mg daily History of atrial flutter/fibrillation, present on admission. Chronic. - Patient in normal sinus rhythm at this time; stopped Eliquis voluntarily - Monitor on telemetry DVT proph- Lovenox VTE Prophylaxis: Sub-Q Enoxaparin VTE Mechanical Devices: Intermittant Pneumatic CD Resuscitation Status: DNR/DNI:Do Not Resuscitate/Intubate Rolando Rolon MD Jun 25, 2017 16:30
--- NOTE | 2017-06-25 16:34 | NUR ---
MIREYA signed by pt's sister by verbal acknowledgement as pt is unable to sign at this time. Alethea Jimenez PERSONNEL COORDINATOR
--- NOTE | 2017-06-25 17:08 | NUR ---
Social Work- Continued D/C Planning Data & Assessment: EMR reviewed. Pt is on day 5 of hospitalization. Pt discussed in multidisciplinary rounds, PT to see pt today. Per PT notes later in the day, recommending SNF. Pt was delirious last night. It was discovered that pt drinks about a 5th of etoh each night, placed on CIWA protocol. Pt was not appropriate for discussion with [employer] today. No additional SW orders other than the general consult order have been received at this time. T/C to pt's sister Jenna regarding MIREYA and provided update on pt. Jenna confirms that she has Bring[employer] paperwork, SW requested copy for hospital. Jenna confirms that pt drinks daily, is concerned about his use and knows that he needs to stop. SW discussed SNF recommendation by PT, Jenna is agreeable to this plan if pt will agree to it. She thinks that pt is unlikely to agree to go to a SNF and will just want to return home and drink. Reports that pt has history at [facility]. Jenna does confirm that if pt adamantly refused to go to a SNF, she will be his support at home but will need some time to organize his home prior to d/c. REJI will discuss recommendations with pt tomorrow when appropriate. Will discuss with MD a potential CD assessment. SW will continue to follow. Plan: REJI will discuss SNF with pt when he is appropriate. Will discuss with MD a potential CD assessment. SW will continue to follow. JACI Adams
--- NOTE | 2017-06-25 18:40 | PROG NOTE ---
[address] [address] PROGRESS NOTE PATIENT: SONAM HIRSCH : 1945 MR#: [id number] ADMIT: 06/20/2017 JOB ID: [id number] DATE: 06/25/2017 INPATIENT MEDICAL ONCOLOGY PROGRESS REPORT: DIAGNOSIS: 1. Current admission for severe pain related to vertebral compression fractures, most likely osteoporotic. 2. Altered mental status, multifactorial. 3. Severe chronic obstructive pulmonary disease. 4. Chronic glucocorticoid therapy and associated sequelae including osteoporosis. 5. Metastatic melanoma, BRAF wild type, responsive to immunotherapy. HISTORY OF PRESENT ILLNESS: The patient is a 71-year-old gentleman with poor social support, severe COPD, on chronic glucocorticoid therapy (currently prednisone 20 mg daily at home), and sequela of chronic glucocorticoid therapy including muscle atrophy, fat redistribution, cushingoid features, and osteoporosis. He is under my care for metastatic melanoma and has been receiving pembrolizumab immunotherapy. His CT scans have showed evidence of continuing response, including the CT scan that was obtained during this admission on June 20. He was seen in Oncology Clinic last Friday and was found in severe pain, was tachycardic and somewhat hypothermic. He was sent to ER. CT scan showed a compression fracture at T10 vertebral body. Thoracic spine MRI was obtained on June 23 and that shows marrow edema throughout T6, at superior T7 endplate, and at superior T10 endplate. Metastatic melanoma lesion in the left retroperitoneal space has further decreased in size. This gentleman has a longstanding alcohol history. He drinks two or three whiskey drinks every day. He continues to smoke as well. During this admission he has been persistently confused. Currently he knows where he is but had a hard time figuring out which month this is and what he is here for. He just tried to get up from his bedside chair to "walk toward computer next to me" and slid down. He looks very concerned and scared. Currently, he says he is pain free. OBJECTIVE: Confused and somewhat disoriented. Blood pressure 145/92, heart rate 104. Temperature has been persistently afebrile. LABORATORY: Today's labs: CBC is normal. Basic metabolic profile is normal as well. Blood cultures drawn on June 20 have remained negative. IMPRESSION AND PLAN: 1. Altered mental status. I think this is a combination of alcohol withdrawal and opioid affect. He was responding well previously to OxyContin 10 mg b.i.d. and oxycodone/APAP 5/325 mg every 4 hours p.r.n., and I think Dr. Aguilar recommends to resume the same, to which I agree. I would not recommend fentanyl given his severe subcutaneous fat atrophy. I would recommend decreasing dexamethasone to 4 mg once daily for a few days, then stop and continue prednisone 20 mg daily. 2. Vertebral body compression fractures at the thoracic spine. After discharge. I will arrange for a repeat thoracic spine with and without contrast, to try to differentiate between osteoporotic versus pathologic compression fractures. I think this can wait to be done as outpatient. 3. Disposition: His sister, who lives in [place], has moved here and has been staying with him. He feels she can take care of him at home and is adamant to go home and not to a SNF. 4. Metastatic melanoma: His melanoma has been responsive to immunotherapy and if his condition improves he can continue his treatments.
--- NOTE | 2017-06-25 19:13 | NUR ---
Agitation and CIWA Patient is alert and oriented to self, but is going through withdrawals. Last CIWA score = 18. Patient stated he wanted to get out of here and attempted multiple times to get out of bed and was tugging at his catheter. Sitter at bedside. Ativan given for agitation. [employer] pump d/c this AM. Pain now managed with scheduled Oxycontin ER and Oxycodone for breath-through pain. Patient tolerating food and liquids. Addendum: 06/25/17 at 1923 by TIANNA MOY RN Bowel Movement Per FLIGHT ENGINEER HELICOPTER, blood noted with last bowel movement. Patient stated this isn't new, but patient is confused/CIWA. Dr. Rolon paged at 18:45. No call back received. Endorsed to incoming RN.
[2017-06-26] VITALS (8 sets, daily range): BP systolic 63–114; BP diastolic 48–69; PULSE 80–112; RESP 16–18; O2SAT 92–98
[2017-06-26] MEDS: Albuterol-Ipratropium 3 mL Inhalation Solution NEB SCH ×4 (02:30→20:52)
--- NOTE | 2017-06-26 03:28 | NUR ---
patient agreed to take his 1999 tx but stated he didn't want to be woken up for his 0230 treatment. Patient is in no distress
--- NOTE | 2017-06-26 04:07 | NUR ---
Agitation/CIWA/sitter Patient appears sound asleep with some gross motor twitches present at start of shift. When woken for PM medication/assessment he is very short tempered and states "you all need to read the instructions and let me sleep". Patiet states no disturbances, headache, or nausea, while on 2L nc no SOB or chest pain. Given one PRN roxidone 5mg with CR oxy, no ativan at this time due to ciwa <10. Pt is sleeping restlessly and turns and repositions himself in bed frequently. Harris is patent and draining kiesha urine. Per day shift pt had some bloody stool, none present this shift. Care continues
[2017-06-26] MEDS: Furosemide 10 mg/mL 4 mL Inj IVPUSH SCH (09:08)
[2017-06-26] MEDS: Multivit-Miner-Folic Acid-Iron Tablet PO SCH (09:08)
[2017-06-26] MEDS: oxyCODONE ER 10 mg ER12 Tablet PO SCH ×2 (09:08→20:59)
[2017-06-26] MEDS: Dexamethasone 4 mg/mL Inj IVPUSH SCH (09:09)
--- NOTE | 2017-06-26 11:48 | PCM.PNMED ---
Subjective Date of Service Jun 26, 2017 Subjective Patient is in bed, 1:1, intermittently confused, intermittently agitated. Exam Vital Signs Vital Sign - Last Date Time Temp Pulse Resp B/P Pulse Ox O2 Delivery O2 Flow Rate FiO2 06/26/17 09:03 37.4 109 16 100/56 98 Nasal Cannula 2.00 Intake and Output 06/25/17 06/25/17 06/26/17 Cumulative From/Thru 15:00 23:00 07:00 06/20/17 15:37 - 06/26/17 06:05 Intake Total 900 ml 100 ml 18467 ml Output Total 3000 ml 600 ml 61112 ml Balance -2100 ml -500 ml 3297 ml Intake Oral 900 ml 100 ml 5121 ml IV Total 8856 ml Output Urine Total 3000 ml 600 ml 95806 ml # Voids 3 5 # Bowel Movements 1 Exam GENERAL: Alert, not in distress, in bed HEAD: atraumatic, normocephalic, EYES: EOMI, anicteric SKIN: Skin color normal, turgor normal. No visible rashes EAR, NOSE, MOUTH, THROAT: Lips, oral mucosa, tongue are moist, pink, no lesions. NECK: supple ROM normal. RESPIRATORY: Lungs clear to auscultation. Good diaphragmatic excursion. CARDIAC: normal S1 and S2; no rubs, murmurs, or gallops; regular rate and rhythm ABDOMEN: Abdomen soft, non-tender. BS normal. No masses or organomegaly. MUSCULOSKELETAL: ROM full, muscles are not tender EXTREMITIES: no pitting edema in LE, no new deformities or skin discoloration. NEURO: Alert, oriented X 2, Cranial nerves II-XII intact, Grossly normal motor function. PULSES: 2+ radial, 2+ carotid REVIEW OF SYSTEMS: GENERAL: no malaise, no fevers., SEE HPI HEENT: Negative for frequent or significant headaches All other reviewed and negative other than HPI. IVs and Medications Medications Reviewed: Medications were reviewed in detail Lab and Diagnostics Result Diagram: 06/25/17 0544 06/25/17 0544 X-Rays, CTs and MRIs CT chest, abdomen, pelvis 06/20/2017 IMPRESSION: No changes in the CT scan of the thorax abdomen and pelvis since 04/03/17 are further decrease in the retrocaval lymph node or soft tissue mass and a new compression of the T10 vertebral body. Possible minimal increase in small left pleural effusion. The Multiple wedging deformities of thoracic vertebrae. Dictated by: Michael Allen M.D. on 06/20/2017 at 17:31 MRI Spine IMPRESSION: 1. Limited study given patient motion artifact. 2. Marrow edema throughout T6, at the superior T7 endplate, and at the superior T10 endplate suggesting acute or subacute compression deformities. Although these may be associated with prior trauma and severe osteopenia, diffuse marrow edema T6 may also be associated with an osseous metastasis. If there is clinical suspicion for osseous metastasis, contrast-enhanced MRI of the thoracic spine is recommended. 3. C7-T1 grade I anterolisthesis. 4. Mildly retropulsed fracture fragments at T5 and T7 with resultant mild canal stenosis. 5. Small left pleural effusion. 12-lead ECG ECG Interpretation: Normal sinus rhythm Rate 64 bpm Right bundle branch block Time: 15:54 Interpreted by: ED physician Assessment & Plan Julián Mckeon is a pleasant but unfortunate 71-year-old male with a past medical history of metastatic melanoma to his lungs and kidneys, COPD, atrial flutter, and osteoporosis with multiple compression fractures who presented to the ED with complaints of severe back pain that began 06/19. CT revealed a new compression fracture at T10. While in the hospital patient developed intermittent confusion and agitation which probably is related to alcohol withdrawal Intermittent Agitation likely 2/2 alcohol withdrawal - likely due to alcohol withdrawal, drinks whiskey everynight - on CIWA protocol Back pain, Compression fracture at T10, osteoporosis and malignant melanoma with multiple compression fractures in his back - stable - Patient has - Palliative care consulted - MRI Thoracic spine noted for edema in marrow as noted above, on decadron, which should take care of edema Plan - c/w steroids, pain meds Chronic respiratory failure, COPD with baseline 1-2 L at home - stable - Likely due to long-term smoking history, asthma, metastases in his lungs - He has stopped most of his medications voluntarily Plan - c/w RT, O2, steroids Malignant melanoma with metastases to the lungs and kidneys - stable - Followed by Dr. Arroyo of [facility], Dr. León saw the patient Depression, present on admission - stable. - Continue fluoxetine 20 mg daily History of atrial flutter/fibrillation, paroxysmal - Stable - Patient in normal sinus rhythm at this time; stopped Eliquis voluntarily Plan - rate control - Monitor on telemetry - ASA DVT proph- Lovenox VTE Prophylaxis: Sub-Q Enoxaparin VTE Mechanical Devices: Intermittant Pneumatic CD Resuscitation Status: DNR/DNI:Do Not Resuscitate/Intubate Rolando Rolon MD Jun 26, 2017 11:48
--- NOTE | 2017-06-26 16:36 | PCM.PALLBR ---
Palliative Care Recommendation Summary of palliative recommendations: 06/26/2017-pain quite adequately treated with his oxycodone ER 10 mg twice a day. Has oxycodone IR ordered but rarely using this. No other pain medications at this time. Osteoporosis-probably steroid and alcohol related. He continues on chronic steroids has severe osteoporosis just based on fractures-with support treatment either with biphosphonate or Forteo. Consider endocrine consultation outpatient for osteoporosis review. Substance use disorder with chronic alcoholism complicated with chronic depression and bipolar diagnosis. He apparently had been through treatment and off substance at least for a while in the past. He has no insight into the issue at this time. He is just past bout of alcohol withdrawal. Reviewed concern for driving due to profound gait instability as well as SUDS. Reviewed with his sister and she states she and her can assist in transport Goals of care-patient wishes to continue his treatment for his melanoma so at this time would not qualify to engage hospice. His sister is interested in hospice option when appropriate. CODE STATUS DNR/DNI and no feeding tube- patient is adamant regarding this. He understands the consequences of this decision. He states POLST has been completed reflecting this and he declines to complete another form. Oncology input (Dr. León, covering for Dr. Arroyo on 06/23): Await input from the Palliative Care team, with focus on symptom relief. Dr. Arroyo is still actively treating the patient and there was no evidence of disease progression on recent CT imaging, other than the new compression fracture at T10. Symptom management: Trial of IV hydromorphone set up by Dr. Antonio was aborted because of his excessive lethargy (which was actually more likely due to his lorazepam per [facility] protocol). Today the patient really appears quite comfortable though he has received minimal narcotics for nearly 24 hours. 1. 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 Restart oxycodone ER 10 mg BID with oxycodone IR 5- 10 mg Q 3hr prn. Hydromorphone 0.5 mg IV Q 2hr prn breakthrough pain not controlled with oral agents. Monitor use of narcotics over the next 24 hours and adjust as needed. Dr. Antonio had also considered fentanyl transdermal for long-acting pain control as another option if he fails to obtain adequate control with oxycodone as ordered -- Continue dexamethasone 12mg IV q AM through 06/26. On Jun 27 Dexamethasone is scheduled to stop. At that time, re-order prednisone 10mg BID ( pt's home steroid dose). Steroid burst will help as adjuvant for bone compression frx pain. -- Continued management of delirium/possible alcohol withdrawal syndrome per protocol DPOA/Advanced Directives/POLST: 1. Code is DNR/DNI. 2. Goals?: Dr. Antonio discussed this directly with Dr. Arroyo on 06/23, and he feels pt's melanoma is responding to therapy. He does not want PC to engage in goals of care conference at this time. 3.HCPOA: pt reports his sister is his HCPOA and paperwork has been done. Baseline function: Pt resides in [place] in a home with his sister and mother where he is independent at baseline with ADLs and self-care. Pt uses a cane and walker at baseline, also has a w/c available at home. Pt drives. Pt has HH history, company unknown. Pt has history at [facility] for rehab. Pt has no LTC or VA benefits. Pt confirms that his sister will be available to assist him at home if needed. She has been assisting him prior to his admission. Pt has no DPOA on file but states that he has completed this and his sister is DPOA. Problems: End of Life Preferences DO NOT RESUSCITATE/DO NOT INTUBATE Goals of Care Patient is unsafe to go home based on gait instability needing assistance for transfer. Would benefit from physical therapy and strengthening. He has little insight into this. His sister and mother would advocate. His ultimate goal is to be home. He plans on continuing with chemotherapy/immune modulator Disposition Pending Resuscitation Status Resuscitation Status: DNR/DNI:Do Not Resuscitate/Intubate POLST Updates/Changes Artificially Admin Nutrition: No Artifical Nutrition by Tube POLST Discussed with: Patient . Pain: None Symptom management: Agitation, Dyspnea Total time 45 minutes; >50% face to face with patient and/or family, providing counselling regarding plans and recommendations, and in care coordination with his/her medical teams. I also spent an additional [ ] minutes counseling for advanced care planning with the patient/the patients family/the surrogate decision maker. copies to: Nilton rAroyo MD; Diane Aldana MD Palliative Brief Note Date of Service Jun 26, 2017 . Palliative follow up Encounter with pt as well as sister, bro in law and his mother. Reviewed with CM and Dr. Rolon 71 yo with hx osteoporosis and compression fx admitted due to back pain with note of new compression fx Hx chronic steroid use for sarcoidosis but also risk factor of his chronic ETOH overuse. Hx of depression and bipolar ds treated by [facility]. Recent dx of malignant melanoma with metastatic ds to lung and adrenal. Continues to be smoker and drinks 3-4 glasses of whisky daily. Noted to have sx c/w withdrawal since admit. He acknowledges that his sister and VICTORIA as well as his mother ([id number]) have just moved up her to "take care of him" He saw rheumatology 2013 and it was suggested he go on fosamax. Sounds like it was prescribed and he threw them away..with some other meds. Hx normal bone density but multiple compression fx, rib fxs and hx of nasal fx from falling He states he has NO pain now even with standing at side of bed. O: appears older than stated age, willing to talk but can get edgy. Cranial nerves grossly symmetrical Oriented to person and place but not time Very unstable on his feet with standing requiring assist of 2 to get up to the bedside commode O2 by nasal cannula-oximetry at 94% Multiple tattoos Lungs breath sounds distant no active wheezing Heart rate is regular he has no edema Labs WNL Monica Harris MD Jun 26, 2017 16:36
--- NOTE | 2017-06-26 16:48 | NUR ---
CIWA and GI Patient is alert and becoming more oriented again. Last CIWA score was 4. Patient is tolerating food and liquids. Patient sat at side of bed for meals and transferred with 1-person assist to the commode. Pt. got up and ambulated briefly with PT with a walker out of room, but complained of some dizziness. Sat down for a few minutes, then walked back into the room. Had a small formed, but loose bowel movement. Harris catheter intact and patent.
--- NOTE | 2017-06-26 17:26 | NUR ---
Social Work- Continued D/C Planning/Attempted Substance Abuse Assessment Data: EMR reviewed. Pt is on day 6 of hospitalization. Pt discussed in multidisciplinary rounds. Pt is not medically stable for discharge, pt is transitioning to PO pain. Pt to wean steroids. Palliative is following for pain. PT continues to recommend SNF. Substance Abuse Assessment and SNF-[facility] order received from . SW spoke with pt regarding SNF vs. returning home. Pt understands needs for SNF and discussed extensively with VEHICLE BODY MAKER his concerns related to SNF. SNF CHOICE LIST PROVIDED. Pt's only choices are [facility], [facility] and [facility]. Pt wants to be close to his family and have them involved often. AGENCY OPERATOR to make referrals tomorrow morning. Pt would also like to discuss SNF with his sister and have her tour them prior to d/c. Pt has history at [facility]. Pt asked that his sister call him karissa. SW also discussed pt's alcohol use. Pt stated "I have no interest in stopping drinking. It is something that I enjoy and I have been drinking for 63 years." Pt admits that etoh is a tool to cope with his stressors, including family isolation, poor health, and aging. Discussed that stopping drinking would be difficult and that pt would have to be motivated. Pt remains in the pre-contemplation stage related to etoh use. Pt was agreeable to VEHICLE BODY MAKER leaving outpt CD resources at bedside. T/C to pt's sister as requested. Pt's sister is agreeable to SNF and plans on touring them tomorrow morning. Pt's sister is agreeable to referrals for both facilities prior to her tour. Pt's sister confirms that she is very involved and will remain so after hospitalization. Pt's sister confirms that she will call pt this evening as requested. AGENCY OPERATOR to make referrals tomorrow morning for [facility]. SW will continue to follow. Assessment: Pt for whom SNF is medically indicated Plan: Referrals to be made to [facility] tomorrow morning. Pt's sister to tour tomorrow morning. SW will continue to follow. JACI Adams
[2017-06-27 00:45] VITALS: BP 107/61; PULSE 76; RESP 20; O2SAT 93
[2017-06-27] MEDS: Albuterol-Ipratropium 3 mL Inhalation Solution NEB SCH ×3 (02:30→14:28)
[2017-06-27 05:30] VITALS: BP 130/63; PULSE 77; RESP 18; O2SAT 97
--- NOTE | 2017-06-27 06:09 | NUR ---
patient agreed to take his 1999 tx but stated he didn't want to be woken up for his 0230 treatment. Patient is in no distress
[2017-06-27] MEDS: guaiFENesin 600 mg ER12 Tablet PO PRN ×2 (06:33→10:14)
--- NOTE | 2017-06-27 07:39 | NUR ---
Mood / GI Pt alert and oriented, mood is quiet, resigned, and cooperative. Harris removed per pt request as he appears able to assist self with urinal, voiding well by end of night. Able to ambulate to BR with FWW and assistance, unsteady gait. [place] alarm engaged for safety. Hourly rounding ongoing.
[2017-06-27 07:54] VITALS: PULSE 81; O2SAT 92
[2017-06-27] MEDS ORDERED: predniSONE 10 mg Tablet PO SCH (08:30)
[2017-06-27] MEDS: oxyCODONE ER 10 mg ER12 Tablet PO SCH (08:30)
--- NOTE | 2017-06-27 08:47 | NUR ---
SNF Transfer - Jodie at [facility] willing to accept pt with Dr. Mejia to follow - Cartridge Maker updated. JACI Martinez
[2017-06-27] MEDS: Multivit-Miner-Folic Acid-Iron Tablet PO SCH (10:06)
[2017-06-27] MEDS ORDERED: ASPI81TA3 PO (12:25)
[2017-06-27] MEDS ORDERED: OXYC-530 PO (12:25)
[2017-06-27] MEDS ORDERED: SENN-133 PO (12:25)
[2017-06-27] MEDS ORDERED: TIOT18CA3 IH (12:25)
[2017-06-27] MEDS ORDERED: PRD5T PO (12:25)
[2017-06-27] MEDS ORDERED: OXYC10TA69 PO (12:25)
[2017-06-27] MEDS ORDERED: ALBU8.5H2 INHALATION (12:25)
--- NOTE | 2017-06-27 12:39 | NUR ---
Social Work: Discharge/Multidisciplinary Rounds D: EMR reviewed. Pt is on day 7 of hospitalization. Pt discussed in multidisciplinary rounds and is medically stable for discharge today. PT noted that pt ambulated 95 ft on 06/26. MD noted that pt is declining SNF. On 06/25, pt was not ambulating to goal and PT recommended SNF - pt agreeable. Pt not agreeable due to progression with ambulation. PT saw pt again 06/27 and is recommending pt to return home, no needs. No other SW needs identified in multidisciplinary rounds, no other MD orders received. SW met with pt and family at bedside to discuss PT recommendations. Pt and family stated they only declined SNF because of pt's progression with ambulation. PT saw pt again this morning and now recommending pt to return home, no needs. SW and PT discussed HH with pt at bedside and pt declined HH stating "they came once or twice and sat at their computer." Pt's family agreeable that pt does not need HH and pt can return home safely. SW confirmed pt's sister and [id number] will be staying with pt to assist with his transfer back home. No SW needs identified. Pt and family state they have no concerns regarding discharge. A: Pt who is independent at baseline P: Pt to discharge home with sister to transport between [id number] today. No SW needs identified at this time, MD orders received, acknowledged and pt declining SNF and HH due to progression with ambulation. MD placed discharge order for home, no needs. RN updated on pt's discharge time. JACI Martinez Addendum: 06/27/17 at 1249 by KD KENDRICK Pt in on 2.5L of O2 at baseline provided by [facility].
--- NOTE | 2017-06-27 13:08 | NUR ---
Discharge Planning Patient is aware of discharge order. Patient and family talked about admission into SNF, but after PT evaluation and recommendation, it was agreed upon to discharge home with family support.
--- NOTE | 2017-06-27 14:01 | PCM.DC.MED ---
Discharge Summary Date of Service Jun 27, 2017 Dates of Hospitalization Date of Hospital Admission Jun 20, 2017 at 18:37 Date of Discharge: Jun 27, 2017 Providers: Admitting Physician: Efrain Haines MD Primary Care Physician: Diane Aldana MD Attending Physician: Rolando Rolon MD Diagnosis at Time of Discharge Diagnosis at Time of Discharge Encephalopathy secondary to alcohol withdrawal; back pain secondary to compression fractures at T 10 and malignant melanoma with multiple compression fractures in his back; chronic respiratory failure, COPD. Multiple melanoma with metastasis to the lungs and kidneys. Depression. History of atrial fibrillation Consultations Palliative care, oncology, social worker assistant, physical therapy Procedures XRay, CTs & MRIs CT chest, abdomen, pelvis 06/20/2017 IMPRESSION: No changes in the CT scan of the thorax abdomen and pelvis since 04/03/17 are further decrease in the retrocaval lymph node or soft tissue mass and a new compression of the T10 vertebral body. Possible minimal increase in small left pleural effusion. The Multiple wedging deformities of thoracic vertebrae. Dictated by: Michael Allen M.D. on 06/20/2017 at 17:31 MRI Spine IMPRESSION: 1. Limited study given patient motion artifact. 2. Marrow edema throughout T6, at the superior T7 endplate, and at the superior T10 endplate suggesting acute or subacute compression deformities. Although these may be associated with prior trauma and severe osteopenia, diffuse marrow edema T6 may also be associated with an osseous metastasis. If there is clinical suspicion for osseous metastasis, contrast-enhanced MRI of the thoracic spine is recommended. 3. C7-T1 grade I anterolisthesis. 4. Mildly retropulsed fracture fragments at T5 and T7 with resultant mild canal stenosis. 5. Small left pleural effusion. ECG 12 Lead ECG Interpretation: Normal sinus rhythm Rate 64 bpm Right bundle branch block Time: 15:54 Interpreted by: ED physician Brief History Mr Mckeon is a pleasant 71-year-old male with a past medical history of metastatic melanoma to his lungs and kidneys, smoking related COPD (home O2 use 1-2LPM/ predisone 20mg BID), atrial flutter, and osteoporosis with multiple compression fractures who presented to the ED with complaints of severe back pain that began 06/19. He normally has intractable pain due to his multiple compression fractures, but this pain is more severe and is radiating to his anus. He did experience some numbness to his lower extremities, which has resolved. He does report some diarrhea and urinary retention. Any movement makes it worse, and his pain regimen was not helping. He denies any recent injuries or fall. CT revealed a new compression fracture at T10.He was admitted for pain control. Palliative care was consulted and helped with management of his pain medications. Patient's oncologist also saw the patient. While in the hospital patient developed acute encephalopathy secondary to alcohol withdrawal. He was treated according to CIWA protocol with oral and IV Ativan. Initially there was a plan to discharge patient to senior care facility. The patient improved significantly in the last 2 days in the hospital. His encephalopathy also improved. The patient improved he was discharged home with recommendation to follow up with his primary doctor, oncologist and palliative medicine team for further management of his medical problems. Patient has history of atrial fibrillation. He was on blood thinners in the past. He stopped them. I discussed stroke prophylaxis with the patient he did not want to go back on blood thinners he was okay with starting aspirin. Patient was advised to quit smoking. Patient was seen and examined on the day of discharge. Patient Condition @ Discharge: good Discharge Disposition: home Discharge Activity: resume regular activity, patient was advised to avoid heavy physical work or exertion Driving: Patient was strongly advised against driving when under influence of alcohol, pain meds or other medication that can cause sedation or decreased reaction. Patient was strongly advised that he must not drink, drive, operative heavy machinery or do anything that requires precise judgement or dexterity within 12 hours of taking the controlled medication that was prescribed to him . Discharge Diet: regular diet, heart healthy, low fat, low salt, high fiber Information Provided to Patient: information about discharge medications Discharge Medications: I discussed with patient medication dosage, usage, goals of therapy, side effects, alternatives. During discharge patient was allert, oriented, able to make own informed decisions. We discussed possible severe side effects, adverse reactions, benefits, risks, alternatives of current and newly prescribed medications and diagnostic procedures. Patient verbalized understanding and agreed to current plan of care and discharge. TIME SPENT IN DISCHARGE ACTIVITY: Face to face activity greater then 30 minutes spent in discharge activity. 1. Discussed with patient re: discharge plan of care/treatment, and follow up care/services. 2. Patient agreed with discharge plan and further plan of care, all questions were answered/addressed, no further questions at the time of discharge. Hospital Course Julián Mckeon is a pleasant but unfortunate 71-year-old male with a past medical history of metastatic melanoma to his lungs and kidneys, COPD, atrial flutter, and osteoporosis with multiple compression fractures who presented to the ED with complaints of severe back pain that began 06/19. CT revealed a new compression fracture at T10. While in the hospital patient developed intermittent confusion and agitation which probably is related to alcohol withdrawal Intermittent Agitation likely 2/2 alcohol withdrawal - likely due to alcohol withdrawal, drinks whiskey everynight - on CIWA protocol Back pain, Compression fracture at T10, osteoporosis and malignant melanoma with multiple compression fractures in his back - stable - Patient has - Palliative care consulted - MRI Thoracic spine noted for edema in marrow as noted above, on decadron, which should take care of edema Plan - c/w steroids, pain meds Chronic respiratory failure, COPD with baseline 1-2 L at home - stable - Likely due to long-term smoking history, asthma, metastases in his lungs - He has stopped most of his medications voluntarily Plan - c/w RT, O2, steroids Malignant melanoma with metastases to the lungs and kidneys - stable - Followed by Dr. Arroyo of [facility], Dr. León saw the patient Depression, present on admission - stable. - Continue fluoxetine 20 mg daily History of atrial flutter/fibrillation, paroxysmal - Stable - Patient in normal sinus rhythm at this time; stopped Eliquis voluntarily Plan - rate control - Monitor on telemetry - ASA DVT proph- Lovenox Exam Vital Signs (Last) Date Time Temp Pulse Resp B/P Pulse Ox O2 Delivery O2 Flow Rate FiO2 06/27/17 11:37 Nasal Cannula 06/27/17 07:54 81 92 06/27/17 05:30 36.8 18 130/63 3.00 Test 06/20/17 15:15 06/20/17 17:30 06/20/17 17:43 06/20/17 18:35 Lactic Acid Level 1.9mmol/L (0.4-2.0) Total Bilirubin 0.9mg/dL (0.0-1.2) Aspartate Amino Transf (AST/SGOT) 34U/L (0-50) Alanine Aminotransferase (ALT/SGPT) 29U/L (0-44) Alkaline Phosphatase 124U/L (25-160) Total Protein 6.4g/dL (6.4-8.4) Albumin 3.8g/dL (3.4-5.0) Lipase 46U/L (13-60) Troponin T < 0.010ug/L (0.0-0.011) Hold Urine Received (Received) Urine Color Yellow (YELLOW) Urine Appearance Clear (CLEAR,HAZY) Urine pH 6.0 (5.0-8.0) Urine Specific [place] 1.010 (1.003-1.035) Urine Protein Negativemg/dL (NEG,TRACE) Urine Glucose (UA) Negativemg/dL (NEGATIVE) Urine Ketones Negativemg/dL (NEGATIVE) Urine Occult Blood Negative (NEGATIVE) Urine Nitrite Negative (NEGATIVE) Urine Bilirubin Negative (NEGATIVE) Urine Urobilinogen Normalmg/dL (NORMAL) Urine Leukocyte Esterase Negative (NEGATIVE) Urine RBC 0-2/hpf (0-2) Urine WBC 0-5/hpf (0-5) Urine Epithelial Cells Occasional/hpf (NONE-MOD) Urine Crystals None seen (NONE SEEN) Urine Bacteria None/hpf (NONE-FEW) Urine Hyaline Casts None/lpf (NONE) Urine Granular Casts None seen (NONE SEEN) Urine Waxy Casts None seen (NONE SEEN) Urine Red Blood Cell Casts None seen (NONE SEEN) Urine White Blood Cell Casts None seen (NONE SEEN) Urine Mucus None seen (None Seen) Urine Trichomonas None seen (NONE SEEN) Urine Yeast None (NONE SEEN) Urinalysis Comment None Urine Culture Reflexed Not indicated Test 06/25/17 05:44 White Blood Count 9.6th/mm3 (3.8-10.1) Red Blood Count 4.45mil/mm3 (4.40-5.80) Hemoglobin 14.0g/dL (13.8-17.2) Hematocrit 43.4% (41.0-50.0) Mean Corpuscular Volume 97.5fL (81-100) Mean Corpuscular Hemoglobin 31.5pg (27.0-35.0) Mean Corpuscular Hemoglobin Concent 32.3% (32.0-37.0) Red Cell Distribution Width 14.9% (12.3-15.4) Platelet Count 241bil/L (150-400) Neutrophils (%) (Auto) 81.0% (40-74) Lymphocytes (%) (Auto) 6.9% (14-46) Monocytes (%) (Auto) 11.5% (4-12) Eosinophils (%) (Auto) 0% (0-5) Basophils (%) (Auto) 0.1% (0-3) Sodium Level 141mEq/L (134-144) Potassium Level 3.9mEq/L (3.5-5.2) Chloride Level 92mEq/L (97-108) Carbon Dioxide Level 34mmol/L (18-29) Blood Urea Nitrogen 12mg/dL (8-27) Creatinine 0.46mg/dL (0.76-1.27) Estimat Glomerular Filtration Rate 191mL/min (>59) Glucose Level 115mg/dL (60-99) Calcium Level 10.0mg/dL (8.5-10.1) Discharge Medications Discharge Medications Aspirin Chew (Aspirin Chew) 81 Mg Chew 81 MG PO DAILY Prescribed by: VINCENT ALMEIDA MD Fluoxetine (Fluoxetine) 20 Mg Capsule 20 MG PO DAILY (Reported) Oxycodone ER (Oxycontin) 10 Mg Tab.er.12h 10 MG PO BID Prescribed by: VINCENT ALMEIDA MD Prednisone (PredniSONE) 5 Mg Tab 10 MG PO BID Prescribed by: VINCENT ALMEIDA MD Tiotropium Aurora (Spiriva) 18 Mcg Cap.w.dev 18 MCG IH DAILY Prescribed by: VINCENT ALMEIDA MD As needed Albuterol HFA (Proair HFA) 8.5 Gm Hfa.aer.ad 2 PUFFS INHALATION Q4H PRN PRN For Shortness of Breath Prescribed by: VINCENT ALMEIDA MD Sennosides (Senna) 8.6 Mg Tablet 17.2 MG PO BID PRN PRN For Constipation Prescribed by: VINCENT ALMEIDA MD oxyCODONE (oxyCODONE) 5 Mg Tablet 5-10 MG PO Q3H PRN PRN For Pain Prescribed by: MD Vincent FRANCO Andriy MD Jun 27, 2017 14:01
--- NOTE | 2017-06-27 15:07 | NUR ---
Discharge Patient DC to home with daughter. All DC education given to patient and daughter at time of DC. Both verbalize understanding of all. Medications reviewed, prescriptions given, and patient will follow up with PCP. IV access removed intact with no s/s of infection. Minor preexisting skin tear dressed and recovered at DC. Patient educated to monitor. This RN informed primary RN Tiara Carty of pt DC.
--- NOTE | 2017-06-27 19:05 | PCM.PALLBR ---
Palliative Care Recommendation Summary of palliative recommendations: 06/27/17-Pain- remains with complete control by his acct. Osteoporosis- Advise consultation with Dr. Hackett- endocrinology to assess and begin treatment. Depression with dx bipolar-Could possibly benefit from meds but would need to sort out the ? of BP etc. Would not start antidepressants without further info. He is interested in counseling which may help with ETOH overuse--did before, and present life changes. [facility]- to continue with treatment for melanoma 06/26/2017-pain quite adequately treated with his oxycodone ER 10 mg twice a day. Has oxycodone IR ordered but rarely using this. No other pain medications at this time. Osteoporosis-probably steroid and alcohol related. He continues on chronic steroids has severe osteoporosis just based on fractures-with support treatment either with biphosphonate or Forteo. Consider endocrine consultation outpatient for osteoporosis review. Substance use disorder with chronic alcoholism complicated with chronic depression and bipolar diagnosis. He apparently had been through treatment and off substance at least for a while in the past. He has no insight into the issue at this time. He is just past bout of alcohol withdrawal. Reviewed concern for driving due to profound gait instability as well as SUDS. Reviewed with his sister and she states she and her can assist in transport Goals of care-patient wishes to continue his treatment for his melanoma so at this time would not qualify to engage hospice. His sister is interested in hospice option when appropriate. CODE STATUS DNR/DNI and no feeding tube- patient is adamant regarding this. He understands the consequences of this decision. He states POLST has been completed reflecting this and he declines to complete another form. Oncology input (Dr. León, covering for Dr. Arroyo on 06/23): Await input from the Palliative Care team, with focus on symptom relief. Dr. Arroyo is still actively treating the patient and there was no evidence of disease progression on recent CT imaging, other than the new compression fracture at T10. Symptom management: Trial of IV hydromorphone set up by Dr. Antonio was aborted because of his excessive lethargy (which was actually more likely due to his lorazepam per [facility] protocol). Today the patient really appears quite comfortable though he has received minimal narcotics for nearly 24 hours. 1. Pain: from compression fractures/on chronic steroids at baseline for pulmonary disease-- -- Discontinue [employer]. Restart oxycodone ER 10 mg BID with oxycodone IR 5- 10 mg Q 3hr prn. Hydromorphone 0.5 mg IV Q 2hr prn breakthrough pain not controlled with oral agents. Monitor use of narcotics over the next 24 hours and adjust as needed. Dr. Antonio had also considered fentanyl transdermal for long-acting pain control as another option if he fails to obtain adequate control with oxycodone as ordered -- Continue dexamethasone 12mg IV q AM through 06/26. On Jun 27 Dexamethasone is scheduled to stop. At that time, re-order prednisone 10mg BID ( pt's home steroid dose). Steroid burst will help as adjuvant for bone compression frx pain. -- Continued management of delirium/possible alcohol withdrawal syndrome per protocol DPOA/Advanced Directives/POLST: 1. Code is DNR/DNI. 2. Goals?: Dr. Antonio discussed this directly with Dr. Arroyo on 06/23, and he feels pt's melanoma is responding to therapy. He does not want PC to engage in goals of care conference at this time. 3.HCPOA: pt reports his sister is his HCPOA and paperwork has been done. Baseline function: Pt resides in [place] in a home with his sister and mother where he is independent at baseline with ADLs and self-care. Pt uses a cane and walker at baseline, also has a w/c available at home. Pt drives. Pt has HH history, company unknown. Pt has history at [facility] for rehab. Pt has no LTC or VA benefits. Pt confirms that his sister will be available to assist him at home if needed. She has been assisting him prior to his admission. Pt has no DPOA on file but states that he has completed this and his sister is DPOA. Problems: End of Life Preferences DO NOT RESUSCITATE/DO NOT INTUBATE Goals of Care Improved stability--OK to go home. Consider arrangement for counseling Disposition Home Resuscitation Status Resuscitation Status: DNR/DNI:Do Not Resuscitate/Intubate POLST Updates/Changes Artificially Admin Nutrition: No Artifical Nutrition by Tube POLST Discussed with: Patient . Symptom management: Depression, Pain Total time 40 minutes; >50% face to face with patient and/or family, providing counselling regarding plans and recommendations, and in care coordination with his/her medical teams. I also spent an additional [ ] minutes counseling for advanced care planning with the patient/the patients family/the surrogate decision maker. copies to: Nilton Arroyo MD; Diane Aldana MD Palliative Brief Note Date of Service Jun 27, 2017 . 71 yo with hx depression, alcohol overuse, chronic steroid use and osteoporosis with multiple compression fx of spine present with severe back pain. He also has hx of melanoma which is responding to immunotx. Hospital course complicated with probable ETOH w/d- now cleared.He denies problem with this. Chronic lung ds with COPD and sarcoid. Hx of dx of depression and bipolar dx with suicide attempt 10 yrs ago. Treated with meds for years under care of [facility] Bone advanced practice psychiatric nurse Lists a number of recent stresses- of 56 yr or left, put dog down, daughter with 1 yo grandchild moved away and something about have money stolen. He states this is the reason his sister and VICTORIA and mother have moved out to help him. he states he would be interested in re-establishing psych counseling. He states he threw his meds away and has been off them for months. PT walked in buck-2 X around [place], Monica Self MD Jun 27, 2017 19:05
== END 2017-06-27 15:03 | disposition home or self-care (01) | DRG 542 ==
LOC: SED 14:27 → OSC 18:37 → OBSVTOIN 18:37
PROVIDERS: ADMIT Hospitalist; ATTEND Internal Medicine
PROC: 4A033R1 Measurement of Arterial Saturation, Peripheral, Percutaneous Approach (ICD-10-PCS; principal; 2017-06-24)
DX: M80.08XA Age-related osteoporosis with current pathological fracture, vertebra(e), initial encounter for fracture (principal); G93.40 Encephalopathy, unspecified; C78.00 Secondary malignant neoplasm of unspecified lung; C64.9 Malignant neoplasm of unspecified kidney, except renal pelvis; F10.239 Alcohol dependence with withdrawal, unspecified; I48.92 Unspecified atrial flutter; J44.9 Chronic obstructive pulmonary disease, unspecified; R19.7 Diarrhea, unspecified; R33.9 Retention of urine, unspecified; E78.5 Hyperlipidemia, unspecified; F17.210 Nicotine dependence, cigarettes, uncomplicated; F32.9 Major depressive disorder, single episode, unspecified; Z99.81 Dependence on supplemental oxygen; Z79.51 Long term (current) use of inhaled steroids